=== PATIENT | female | born 1930 | race Caucasian/White ===

== ENCOUNTER 2016-11-08 16:33 | Inpatient (IN) | payer MEDICARE, OTHER ==
[~2016-11-08] VITALS: Ht 152.4 cm; Wt 45.9 kg
[~2016-11-08 16:33] MED LIST: APR50 PO; ASPI-664 PO; ATOR20TA38 PO; CARV6.25 PO; CLON-379 PO; CLON1PAT16 TD; CNC30T PO; DOXA1TAB38 PO; FOLI-49 PO; HYDR-3011 PO; MEGE40TA PO; NIFE60TA7 PO; PANT40TA3 PO; SENN-8 PO
--- NOTE | 2016-11-08 17:13 | RADRPT ---
PROCEDURE: Chest x-ray CLINICAL INDICATION: Abdominal pain TECHNIQUE: Chest single view COMPARISON: 01/19/2016 FINDINGS: As before there is right IJ dialysis catheter. Stable cardiomegaly and an sclerotic aortic calcific ation is seen. There is interval worsening CHF. Small left pleural effusion is identified. There is associated left lower lobe compressive atelectasis and volume loss. Right costophrenic angle sha rp. IMPRESSION: 1. Right IJ dialysis catheter remains in place. 2. Cardiomegaly with CHF which is slightly worse compared to prior examination. 3. Small left pleural effusion with left lower lung consolidation RPTAT: HH .Juvenal El MD, MD Date Time Electronically viewed and signed by .Juvenal El MD, on 11/08/2016 17:13 .W/
[2016-11-08 17:35] LABS: BASOPHILS % 0.2 % (0.0-2.0); EOSINOPHILS % 0.2 % (0.0-7.0); HEMATOCRIT 29.6 % (37.0-47.0); HEMOGLOBIN 9.5 g/dl (12.0-16.0); LYMPHOCYTES # 0.7 10^3/ul (0.8-2.9); LYMPHOCYTES % 18.8 % (15.0-51.0); MEAN CORPUSCULAR HEMOGLOBIN 31.7 pg (29.0-33.0); MEAN CORPUSCULAR VOLUME 99.2 fl (82.0-101.0); MEAN PLATELET VOLUME 9.1 fl (7.4-10.4); MONOCYTE # 0.3 10^3/ul (0.3-0.9); MONOCYTES % 8.2 % (0.0-11.0); NEUTROPHIL # 2.6 10^3/ul (1.6-7.5); NEUTROPHILS % 72.6 % (39.0-77.0); PLATELET COUNT 146 10^3/UL (140-440); RED BLOOD COUNT 2.98 10^6/ul (4.20-5.40); RED CELL DISTRIBUTION WIDTH 15.7 % (11.5-14.5); UNCORRECTED WBC 3.6 10^3/ul (4.8-10.8); WHITE BLOOD COUNT 3.6 10^3/ul (4.8-10.8)
[2016-11-08 17:37] LABS: CONDITION 1; LH ANALYZER COMMENTS 1
[2016-11-08 17:40] LABS: INR 1.13; PROTIME 14.5 Sec (12.2-14.2); PT RATIO 1.1
[2016-11-08 17:50] LABS: ALBUMIN 3.2 g/dl (3.3-4.9)
[2016-11-08 17:51] LABS: POTASSIUM 5.3 mmol/L (3.5-5.1)
[2016-11-08 17:53] LABS: ALBUMIN/GLOBULIN RATIO 0.78; CALCIUM 8.6 mg/dl (8.4-10.2); CREATININE 4.92 mg/dl (0.44-1.00); TOTAL PROTEIN 7.3 g/dl (6.1-8.1)
[2016-11-08] MEDS: VANCOMYCIN 1 GM (PMX) 250 ML IVPB SCH ×2 (17:59→19:08)
[2016-11-08] MEDS ORDERED: FUROSEMIDE 40 MG INJ IV ONE (18:00)
[2016-11-08] MEDS ORDERED: CEFEPIME 1GM/50 ML (PMX) 50 ML IVPB ONE (18:00)
[2016-11-08 18:03] LABS: TROPONIN-I 0.082 ng/ml (0.00-0.12)
[2016-11-08 18:21] LABS: ADD UMIC YES; URINE BILIRUBIN (Dip) NEGATIVE (NEGATIVE); URINE BLOOD (Dip) 3+ (NEGATIVE); URINE COLOR YELLOW (YELLOW); URINE GLUCOSE (Dip) NEGATIVE (NEGATIVE); URINE KETONES (Dip) NEGATIVE (NEGATIVE); URINE LEUKOCYTE ESTERASE (Dip) 3+ (NEGATIVE); URINE NITRITE (Dip) NEGATIVE (NEGATIVE); URINE TOTAL PROTEIN (Dip) 2+ (NEGATIVE); URINE UROBILINOGEN (Dip) 0.2 E.U./dL (0.1-1.0)
[2016-11-08 18:41] LABS: BACTERIA,URINE MANY
[2016-11-08] MEDS ORDERED: ASPI-664 PO (18:43)
[2016-11-08] MEDS ORDERED: HYDR-3672 PO (18:43)
--- NOTE | 2016-11-08 18:43 | ERA ---
ER Documentation Chief Complaint Date/Time DATE: 11/08/16 TIME: 18:31 Chief Complaint BROUGHT IN VIA EMS DUE TO SHORTNESS OF BREATH HPI 85-year-old woman brought in by EMS from longterm for increasing shortness of breath. She has a history of end-stage kidney disease and was dialyzed 2 days ago on Tuesday. She had an episode of hypoxia while at the longterm today. Family member was later at the bedside states her mental status has been diminished today, she has had no fevers, no obvious cough, no complaints of chest pain. She has had no vomiting or diarrhea. HPI was supplemented by reviewing past medical history, reviewing longterm records, speaking to EMS , family members, and nurses. ROS All systems reviewed and are negative except as per history of present illness. Medications Home Meds Reported Medications Nifedipine* (Nifedipine ER*) 60 Mg Tablet.sa, 60 MG PO DAILY, TAB.SA 10/24/15 Hydralazine Hcl* (Hydralazine Hcl*) 50 Mg Tab, 100 MG PO TID, #180 TAB 10/24/15 Doxazosin Mesylate* (Cardura*) 1 Mg Tablet, 1 MG PO QHS, #30 TAB 10/24/15 Clonidine Hcl Transdermal Patch* (Catapres-TTS 3*) 1 Patch.wk Patch.tdwk, 1 PATCH.WK TD Q7D, PATCH 10/24/15 Carvedilol* (Coreg*) 6.25 Mg Tablet, 6.25 MG PO BID, TAB 10/24/15 Atorvastatin Calcium* (Atorvastatin Calcium*) 20 Mg Tablet, 40 MG PO QHS, #30 TAB 10/24/15 Aspirin* (Aspirin* EC) 81 Mg Tablet.dr, 81 MG PO DAILY, TAB 10/24/15 Folic Acid* (Folic Acid*) 1 Mg Tablet, 1 MG PO DAILY, TAB 07/17/15 Pantoprazole* (Protonix*) 40 Mg Tablet.dr, 40 MG PO DAILY, TAB 07/17/15 Sennosides/Docusate Sodium* (Senna-S*) 1 Tab Tablet, 1 TAB PO DAILY Y for CONSTIPATION, TAB 07/17/15 Cinacalcet* (Sensipar*) 30 Mg Tab, 30 MG PO DAILY, TAB 11/14/14 Hydroxyzine Hcl* (Hydroxyzine Hcl*) 25 Mg Tablet, 25 MG PO DAILY, TAB 10/29/14 Megestrol Acetate* (Megace*) 40 Mg Tab, 40 MG PO BID, TAB 11/30/13 Clonidine Hcl* (Clonidine Hcl*) 0.1 Mg Tab, 0.1 MG PO DAILY Y for ELEVATED BLOOD PRESSURE, TAB 11/30/13 Allergies Allergies: Coded Allergies: No Known Allergy (Verified , 09/18/15) PMhx/Soc decompensated diastolic heart failure with an ejection fraction of 60%, end- stage kidney disease hemodialyzed on Tuesday, , Saturdays, hypertension , dyslipidemia, DNR status Anesthesia Reaction: No Hx Neurological Disorder: No Hx Respiratory Disorders: Yes (PNA) Hx Cardiac Disorders: Yes (HTN, CHF) Hx Psychiatric Problems: No Hx Alcohol Use: No Hx Substance Use: No Hx Tobacco Use: No Smoking Status: Unknown if ever smoked FmHx Family History: No diabetes Physical Exam Vitals Vital Signs Date Time Temp Pulse Resp B/P Pulse Ox O2 Delivery O2 Flow Rate FiO2 11/08/16 17:16 73 20 116/64 98 Nasal Cannula 4.0 11/08/16 16:58 Nasal Cannula 3 11/08/16 16:46 98.4 90 20 120/86 99 Physical Exam GENERAL: Elderly, chronically debilitated woman, appears encephalopathic, afebrile HEENT: Dry mucous membranes, pink conjunctiva, no cervical spine tenderness or step-off deformities, no goiter, no jaundice or icterus, extraocular movements intact without pain. No submandibular induration, and no pharyngeal erythema NEURO: Alert and oriented 1, moving all extremities, does not answer questions or follow commands, no facial asymmetry, pupils equal round reactive to light CARDIAC: Regular rate and rhythm, no murmurs rubs or gallops LUNGS: Clear bilaterally no wheezing crackles or stridor ABDOMEN: Soft nontender, no guarding, no rigidity, no rebound, no psoas sign no obturator sign. Normoactive bowel sounds SKIN: Warm and dry to touch, no abrasions, contusions, or hematomas, no lacerations, no ecchymosis, no target lesions, and without ulcers EXTREMITIES: No clubbing cyanosis or edema, calves are bilaterally symmetrical, no Homans sign, no popliteal cord sign. Distal pulses equal and bilateral PSYCH: Unable to assess Result Diagram: 11/08/16 1705 11/08/16 1705 Results 24 hrs Laboratory Tests Test 11/08/16 17:05 Alanine Aminotransferase (ALT/SGPT) 14IU/L Albumin 3.2g/dl Albumin/Globulin Ratio 0.78 Alkaline Phosphatase 91IU/L Anion Gap 19 Aspartate Amino Transf (AST/SGOT) 22IU/L Basophils # 0.010^3/ul Basophils % 0.2% Blood Morphology Comment Blood Urea Nitrogen 50mg/dl Calcium Level 8.6mg/dl Carbon Dioxide Level 26mmol/L Chloride Level 100mmol/L Creatinine 4.92mg/dl Direct Bilirubin 0.00mg/dl Eosinophils # 0.010^3/ul Eosinophils % 0.2% Globulin 4.10g/dl Glucose Level 83mg/dl Hematocrit 29.6% Hemoglobin 9.5g/dl INR International Normalized Ratio 1.13 Indirect Bilirubin 0.0mg/dl Lipase 218U/L Lymphocytes # 0.710^3/ul Lymphocytes % 18.8% Mean Corpuscular Hemoglobin 31.7pg Mean Corpuscular Hemoglobin Concent 32.0g/dl Mean Corpuscular Volume 99.2fl Mean Platelet Volume 9.1fl Monocytes # 0.310^3/ul Monocytes % 8.2% Neutrophils # 2.610^3/ul Neutrophils % 72.6% Nucleated Red Blood Cells # 0.010^3/ul Nucleated Red Blood Cells % 0.0/100WBC Platelet Count 14475^3/UL Potassium Level 5.3mmol/L Prothrombin Time 14.5Sec Prothrombin Time Ratio 1.1 Red Blood Count 2.9810^6/ul Red Cell Distribution Width 15.7% Sodium Level 140mmol/L Total Bilirubin 0.0mg/dl Total Protein 7.3g/dl Troponin I 0.082ng/ml White Blood Count 3.610^3/ul Current Medications Medications (Trade) Dose Ordered Sig/Lali Route PRN Reason Start Time Stop Time Status Last Admin Dose Admin Furosemide 60 mg 60 mg ONCE ONCE IV 11/08/16 18:00 11/08/16 18:01 DC 11/08/16 17:59 Cefepime HCl 50 ml @ 100 mls/hr ONCE ONCE IVPB 11/08/16 18:00 11/08/16 18:29 DC 11/08/16 17:59 Vancomycin HCl (Vancocin) 250 ml @ 125 mls/hr ONCE IVPB 11/08/16 18:00 11/08/16 19:59 Procedures/MDM IV line was established patient was placed on cardiac/vascular sonographer rhythm strip revealed a sinus rhythm at about 70 bpm with upright P and T waves. Patient was afebrile with a rectal temperature performed. Straight catheterization of the bladder was performed and there was 10 cc of urine output, it seems like she is still able to make some urine so Cochran catheter was placed. Blood and urine cultures have been ordered results are pending I will follow-up. One view chest x-ray performed, read by me reveals a hemodialysis catheter in the right chest, cardiomegaly, bilateral pulmonary vascular congestion and possible early infiltrate at the left lower lobe, no pneumothorax, no end of the diaphragm. EKG performed, read by me reveals a normal sinus rhythm at 73 bpm, normal axis with flattened P and T waves, no concerning ST elevation or depression noted. CBC reveals a leukocytosis at 3.6 and mild anemia with a hematocrit of 30, electrolytes revealed renal failure with a BUN/creatinine of 50/4.9, and hyperkalemia 5.3. Liver function tests are normal, troponin was negative. Urine analysis is pending. Patient is afebrile and at this time sepsis or pneumonia is unlikely although there may be an early evolving infiltrate especially given her recent hypoxia at the longterm so I treated her here with cefepime 1 g IV and vancomycin 1 g IV. Antibiotics were administered after blood culture was performed. Critical Care: Time: 38 minutes, this was time separate from other procedures. Treatments/Evaluations: Close monitoring and treatment of unstable vital signs, cardiorespiratory, and neurologic status, while maintaining tight balance of fluid, respiratory, and cardiac interventions. Patient will be admitted to telemetry setting for continued medical management and hemodialysis Departure Diagnosis: Primary Impression: ESRD (end stage renal disease) on dialysis Additional Impressions: Accelerated hypertension Pulmonary edema Qualified Code: J81.0 - Acute pulmonary edema Hyperkalemia Pneumonia Qualified Code: J18.9 - Pneumonia of left lower lobe due to infectious organism Encephalopathy Condition: SAWYER Nelson MD Nov 08, 2016 18:42
[2016-11-08] MEDS ORDERED: CLON1PAT3 TD (18:44)
[2016-11-08] MEDS ORDERED: CARV12.598 PO (18:47)
[2016-11-08] MEDS ORDERED: DOCU-159 PO (18:47)
[2016-11-08] MEDS ORDERED: FOLI-49 PO (18:48)
[2016-11-08] MEDS ORDERED: HYDR-3011 PO (18:49)
[2016-11-08] MEDS ORDERED: ATOR40TA68 PO (18:50)
[2016-11-08] MEDS ORDERED: NIFE60TA7 PO (18:53)
[2016-11-08] MEDS ORDERED: PANT40TA4 PO (18:54)
[2016-11-08] MEDS ORDERED: NEPH PO (18:55)
[2016-11-08] MEDS ORDERED: SEVE800T7 PO (18:56)
[2016-11-08] MEDS ORDERED: SENN-53 PO (18:56)
[2016-11-08] MEDS ORDERED: BENZ1LOZ4 PO (19:01)
[2016-11-08] MEDS ORDERED: NA POLYST SULFON 15 GM/60 ML BTL PO ONE (21:30)
[2016-11-08] MEDS ORDERED: hydrOXYzine HCL 25 MG TAB PO PRN (22:00)
[2016-11-08] MEDS ORDERED: CLONIDINE 0.3 MG/24 HR PATCH TRANSDERM SCH (22:00)
[2016-11-08] MEDS ORDERED: NIFEdipine (XL) 60 MG TAB PO SCH (22:00)
[2016-11-08] MEDS: DOCUSATE SODIUM 100 MG CAP PO SCH (23:20)
[2016-11-09] VITALS (9 sets, daily range): BP systolic 112–139; BP diastolic 59–74; PULSE 55–78; RESP 16–17; TEMP 98.6; Ht 152.4 cm; Wt 45.9 kg
[2016-11-09 06:49] LABS: POTASSIUM 5.1 mmol/L (3.5-5.1)
[2016-11-09 06:52] LABS: CREATININE 5.41 mg/dl (0.44-1.00)
[2016-11-09 06:53] LABS: CALCIUM 8.3 mg/dl (8.4-10.2); MAGNESIUM 1.9 mg/dl (1.7-2.5); PHOSPHORUS 7.3 mg/dl (2.5-4.9)
[2016-11-09] MEDS: PANTOPRAZOLE (EC) 40 MG TAB PO SCH (07:26)
[2016-11-09] MEDS ORDERED: CALCIUM ACETATE 667 MG CAP PO SCH (08:00)
[2016-11-09] MEDS: DOCUSATE SODIUM 100 MG CAP PO SCH ×2 (10:01→21:00)
[2016-11-09] MEDS: SEVELAMER CARBONATE 0.8 GM PKT PO SCH ×3 (10:01→18:58)
[2016-11-09] MEDS: FOLIC ACID 1 MG TAB PO SCH (10:02)
[2016-11-09] MEDS: SENNA TAB PO SCH (10:03)
[2016-11-09] MEDS: MULTIVIT/CA CARB/B CMPLX/FA TAB PO SCH (10:03)
[2016-11-09] MEDS: ASPIRIN (EC) 81 MG TAB PO SCH (10:03)
[2016-11-09] MEDS: NIFEdipine (XL) 60 MG TAB PO SCH ×2 (10:04→21:00)
--- NOTE | 2016-11-09 16:55 | QN ---
Documentation Comment [id number] consult GLENNY RACHEL MD Nov 09, 2016 16:55
[2016-11-09] MEDS ORDERED: LEVOFLOXACIN 500MG/D5W (PMX) 100 ML IVPB SCH ×2 (17:00→19:00)
[2016-11-09] MEDS ORDERED: VANCOMYCIN IV PER PHARMACY XX SCH (17:00)
[2016-11-09] MEDS ORDERED: HEPARIN 1000 UNITS/ML 10 ML INJ CATHETER ONE (19:00)
[2016-11-09] MEDS: ALBUMIN HUMAN 25% 100 ML IV SCH ×2 (19:00→20:00)
--- NOTE | 2016-11-09 19:07 | CONS ---
DATE OF ADMISSION: 11/09/2016 DATE OF CONSULTATION: TYPE OF CONSULTATION: Nephrology. HISTORY OF PRESENT ILLNESS: Thank you for kindly asking me to see this patient in nephrology consul loraine. Ms. Hay is non-Mohawk speaking 85-year-old female with history of ESRD, history of hyp ertension, CHF, pneumonia, sepsis, AV fistula placement in the past, which has been clotted. The mariluz carlisle has a history of heart failure, also history of hip fracture in the past and repair who presen lynnette with short of breath. As per record from the ER, patient was seen by Dr. Lj Castro and mariluz carlisle's last dialysis was Tuesday without any problem. The patient's blood pressure in the ER 116/ 64. The patient's temperature 98.4. The patient's WBC 3.6, hematocrit 29.6. Potassium 5.3, BUN 50 , creatinine 4.92. The patient received Lasix, cefepime, and vancomycin in the ER and transferred t o the floor. The patient's blood cultures are also positive. The patient has gram-positive cocci i n pairs and chains in blood culture. Chest x-ray shows the patient has small left pleural effusion, left lower lung consolidation, cardiomegaly with CHF, slightly worse. PAST MEDICAL HISTORY: ESRD, hypertension, anemia, CHF, pneumonia, history of hip fracture, history of AV fistula placement, multiple catheter sepsis, history of malnutrition, history of multiple hosp italizations as well as patient has history of dyslipidemia. ALLERGY HISTORY: NEGATIVE PER CURRENT RECORD. SOCIAL HISTORY: Cannot be obtained. FAMILY HISTORY: Cannot be obtained. MEDICATION HISTORY: USP medications include patient is on: 1. Aspirin. 2. Lipitor. 3. Coreg. 4. Clonidine. 5. Docusate sodium. 6. Folic acid. 7. Hydralazine. 8. Hydroxyzine. 9. Multiple vitamin. 10. Nifedipine. 11. Protonix. 12. Senna. 13. Renvela. REVIEW OF SYSTEMS: Cannot be obtained because of language barrier. PHYSICAL EXAMINATION: GENERAL: The patient is awake, alert, mildly short of breath. VITAL SIGNS: Pulse 64, blood pressure 130/61. HEENT: Head is atraumatic, normocephalic. Pupils equal, reactive. NECK: Supple. LUNGS: Rhonchi and some wheezes noted. Crepitation in both bases. CARDIOVASCULAR: S1, S2 normal. Systolic murmur, soft, noted. ABDOMEN: Soft, nontender. Bowel sounds positive. No palpable mass. EXTREMITIES: No cyanosis, clubbing, or edema. CENTRAL NERVOUS SYSTEM: The patient is awake, alert, moving both upper and lower extremities. LABORATORY DATA: Repeat potassium 5.1, BUN 58, creatinine 5.41. Phosphorus 7.3. The patient's blo od cultures growing gram-positive cocci in pairs. IMPRESSION: 1. The patient has pulmonary edema. 2. Sepsis. 3. Possible community-acquired pneumonia. 4. Hyperkalemia. 5. The patient has pancytopenia. 6. Endstage renal disease. 7. Hypertension. 8. Dyslipidemia. 9. History of hip fracture. 10. History of right chest PermCath placement. PLAN: To continue renal diet, binders. Hemodialysis will be ordered as well as antibiotics. Thank you, Dr. Love, for kindly asking me to see this patient in nephrology consultation. Dictated By: GLENNY RACHEL MD BS/NTS Conf#: [id number] DID#: [id number] CC: KEON LOVE MD; GENET TRIMBLE MD;*EndCC*
--- NOTE | 2016-11-09 20:28 | HP ---
DATE OF ADMISSION: 11/09/2016 OUTPATIENT CRAPS DEALER: Reed Browne MD CHIEF COMPLAINT ON ADMISSION: Shortness of breath. HISTORY OF PRESENT ILLNESS: This is an 85-year-old female with history of hypertension, end-stage r enal disease on hemodialysis, hyperlipidemia, chronic anemia, congestive heart failure and diastolic dysfunction, who was brought into the emergency department from a local group home facility wi th reported shortness of breath. The patient's last dialysis was this past Tuesday; therefore she missed dialysis apparently on Tuesday. She was found to be hypoxic at the group home facility a nd according to family members, her mental status was diminished. All of the history is obtained fr om previous admissions along with ER physician report. There is no reported fevers, no complaint of chest pain, nausea or vomiting. She did not have any reported productive cough. However, on exam she did sound a little congested coughing. She has been afebrile since admission. In the emergency department, she had a chest x-ray that showed signs of pulmonary vascular congestion and possibly l eft lower lobe consolidation. She did receive a dose of cefepime and vancomycin. Her laboratory da ta is pointing more possibly to a viral URI versus bronchopneumonia. I have ordered influenza swab to be done. She has been seen by Dr. Browne with planned dialysis today. Upon arrival yesterday, he r potassium was up to 5.3. This was treated in the emergency department. She is currently hemodyna mically stable, awake, alert, seems to have her mental status at baseline. Awaiting hemodialysis to day. PAST MEDICAL HISTORY: 1. Includes congestive heart failure, diastolic dysfunction. 2. End-stage renal disease on hemodialysis. 3. Hypertension. 4. Hyperlipidemia. 5. Chronic anemia. ALLERGIES: NO KNOWN ALLERGIES. PAST SURGICAL HISTORY: 1. The patient is status post right hip surgery remotely. Of note, her right hip surgery was done i 2013, a right hemiarthroplasty. 2. Status post Perm-A-Cath placement and left upper extremity AV fistula remotely. SOCIAL HISTORY: No smoking or alcohol reported. The patient is currently a resident at the group home [facility]. REVIEW OF SYSTEMS: Unable to obtain from patient. OUTPATIENT MEDICATIONS: 1. Atorvastatin 40 mg p.o. at bedtime. 2. Carvedilol 12.5 mg p.o. b.i.d. 3. Clonidine patch 0.3 for 24 hour q. 7 days. 4. Hydralazine 100 mg p.o. t.i.d. 5. Nifedipine ER 60 mg p.o. b.i.d. 6. Aspirin 81 mg p.o. daily. 7. Hydroxyzine 25 mg p.o. q. 6 hours p.r.n. itching. 8. Renvela 0.8 grams p.o. with meals. 9. Sore throat lozenges daily p.r.n. 10. Colace 100 mg p.o. b.i.d. 11. Protonix 40 mg p.o. daily. 12. Senna 1 tab p.o. daily. 13. Folic acid 1 mg p.o. daily. 14. Sofy-Cooper 1 tab p.o. daily. PHYSICAL EXAMINATION: VITAL SIGNS: Temperature 98.6, heart rate of 62, sinus rhythm, respiratory rate 18, blood pressure 135/61 the patient is satting 95% on 2 liters nasal cannula. GENERAL: She is alert and oriented. It is unclear if she is oriented by 4. She is primarily Russi an speaking. She is not in acute distress currently. HEENT: Pupils are equally round and reactive to light. Extraocular muscles are intact. Anicteric sclerae. NECK: No JVD, no thyromegaly noted. HEART: Regular rate and rhythm. LUNGS: Clear to auscultation mostly except at the bases where decreased breath sounds are more sign ificant on the left side. ABDOMEN: Soft, nontender, nondistended. Bowel sounds are present. EXTREMITIES: No edema, clubbing or cyanosis. NEUROLOGIC: Again, she seems back to baseline. It is unclear how much walking or weightbearing she does at baseline. LABORATORY DATA: White blood cell count is 3.6, hemoglobin 9.5, hematocrit 29.6, MCV around 99 to 2 00, platelet count of 146. Chemistry with a sodium of 142, potassium 5.1, chloride 101, bicarbonate 25, BUN 58, creatinine 5.41, glucose of 86, calcium of 8.3, phosphorus 7.3, magnesium of 1.9. Live r function testing within normal. Troponin 0.082, albumin of 3.0. Lipase of 218. INR 1.1, PT 14.5 . Urinalysis shows 3+ leukocyte, many bacteria, and 2+ protein. RADIOLOGICAL DATA: Show a right IJ dialysis catheter in place, some cardiomegaly with CHF is slight ly worse compared to prior examination. She does have and pulmonary vascular congestion. Th ere is a small left pleural effusion with left lower lobe consolidation reported. ASSESSMENT AND PLAN: This is an 85-year-old female with: 1. Episode of mild respiratory distress concerning for congestive heart failure exacerbation versus bronchopneumonia versus upper respiratory infection. If it is an infectious source, it is likely to be viral, but since the patient is a dialysis patient and she lives in a group home facility, she has been empirically covered at this point. She did receive vancomycin and also cefepime. I wi ll place her on Levaquin and cefepime. Also, one of her blood cultures 1/2 came back pretty quickly with gram-positive cocci. This is suspicious for possibly a contamination, but will monitor on the final results and repeat the blood cultures tomorrow. She is currently stable on 2 liters nasal ca nnula. 2. End-stage renal disease on hemodialysis. The patient has missed 1 hemodialysis. I have contact ed Dr. Browne, who is familiar with the patient and saw the patient this afternoon, is planning for d ialysis today. 3. Severe hypertension. She is on multiple agents to be continued for now and monitor closely. 4. Hyperlipidemia. Continue home medications. 5. Congestive heart failure, diastolic dysfunction. The patient's volume status will be managed th rough hemodialysis. She already had 1 negative cardiac enzyme, I will recheck one tomorrow morning and will also have echocardiogram to make sure that she is still just a diastolic dysfunction and no t systolic dysfunction. 6. Chronic anemia, hemoglobin is stable so far. Continue to monitor. 7. Positive urinalysis. Will await urine culture and the patient should have her Cochran catheter di scontinued as she is anuric. 8. Prophylaxis: Pepcid for GI prophylaxis and heparin subq for DVT prophylaxis. DISPOSITION: The patient to be dialyzed today, follow up on her cultures and hopefully she will be able to go back to group home facility in the next 48 hours. Dictated By: KEON VALLE/RAMOS Conf#: [id number] DID#: [id number]
[2016-11-09] MEDS: ATORVASTATIN 40 MG TAB PO SCH (21:00)
[2016-11-09] MEDS ORDERED: ALBUMIN HUMAN 25% 100 ML IV ONE (22:00)
[2016-11-09] MEDS ORDERED: VANCOMYCIN 500MG/NS (PMX) 100 ML IVPB SCH (22:00)
[2016-11-10] VITALS (18 sets, daily range): BP systolic 111–165; BP diastolic 50–77; PULSE 55–67; RESP 16–20
[2016-11-10] MEDS: HEPARIN 5,000 UNIT/0.5 ML SYG SC SCH ×3 (01:40→20:58)
[2016-11-10 06:05] LABS: BASOPHILS % 0.1 % (0.0-2.0); EOSINOPHILS % 1.1 % (0.0-7.0); HEMATOCRIT 27.2 % (37.0-47.0); HEMOGLOBIN 9.1 g/dl (12.0-16.0); LYMPHOCYTES # 0.4 10^3/ul (0.8-2.9); LYMPHOCYTES % 12.6 % (15.0-51.0); MEAN CORPUSCULAR HEMOGLOBIN 32.8 pg (29.0-33.0); MEAN CORPUSCULAR HGB CONC 33.3 g/dl (32.0-37.0); MEAN CORPUSCULAR VOLUME 98.5 fl (82.0-101.0); MEAN PLATELET VOLUME 9.1 fl (7.4-10.4); MONOCYTE # 0.2 10^3/ul (0.3-0.9); MONOCYTES % 5.7 % (0.0-11.0); NEUTROPHIL # 2.7 10^3/ul (1.6-7.5); NEUTROPHILS % 80.5 % (39.0-77.0); PLATELET COUNT 118 10^3/UL (140-440); RED BLOOD COUNT 2.77 10^6/ul (4.20-5.40); RED CELL DISTRIBUTION WIDTH 14.8 % (11.5-14.5); UNCORRECTED WBC 3.4 10^3/ul (4.8-10.8); WHITE BLOOD COUNT 3.4 10^3/ul (4.8-10.8)
[2016-11-10 06:08] LABS: POTASSIUM 3.7 mmol/L (3.5-5.1)
[2016-11-10 06:10] LABS: CK-MB 1.02 ng/ml (0.0-2.4)
[2016-11-10 06:11] LABS: CREATININE 3.55 mg/dl (0.44-1.00)
[2016-11-10 06:12] LABS: CALCIUM 8.5 mg/dl (8.4-10.2)
[2016-11-10 06:13] LABS: TROPONIN-I 0.072 ng/ml (0.00-0.12)
[2016-11-10 06:16] LABS: CONDITION 1; LH ANALYZER COMMENTS 1
[2016-11-10 06:27] LABS: CREATINE KINASE < 20 IU/L (23-200)
[2016-11-10 07:49] LABS: MAGNESIUM 1.7 mg/dl (1.7-2.5); PHOSPHORUS 4.2 mg/dl (2.5-4.9)
[2016-11-10] MEDS: SEVELAMER CARBONATE 0.8 GM PKT PO SCH ×3 (07:55→17:55)
[2016-11-10] MEDS ORDERED: VANCOMYCIN 750 MG in SOD CHLORIDE 0.9% 150 ML IVPB ONE (08:00)
[2016-11-10] MEDS: PANTOPRAZOLE (EC) 40 MG TAB PO SCH (08:48)
[2016-11-10] MEDS: DOCUSATE SODIUM 100 MG CAP PO SCH ×2 (08:49→20:57)
[2016-11-10] MEDS: FOLIC ACID 1 MG TAB PO SCH (08:50)
[2016-11-10] MEDS: ASPIRIN (EC) 81 MG TAB PO SCH (08:50)
[2016-11-10] MEDS: SENNA TAB PO SCH (08:51)
[2016-11-10] MEDS: MULTIVIT/CA CARB/B CMPLX/FA TAB PO SCH (08:51)
[2016-11-10] MEDS: NIFEdipine (XL) 60 MG TAB PO SCH ×2 (08:51→20:56)
--- NOTE | 2016-11-10 12:44 | PN ---
Date/Time of Note Date/Time of Note DATE: 11/10/16 TIME: 12:15 Assessment/Plan VTE Prophylaxis VTE Prophylaxis Intervention: heparin Lines/Catheters IV [facility] Saline Lock Urinary Cath still in place: No Assessment/Plan Assessment/Plan 85-year-old female with: 1. Episode of mild respiratory distress concerning for congestive heart failure exacerbation versus bronchopneumonia versus upper respiratory infection. On Levaquin and Vanco for ? HCAP vs likely to be viral Blood cultures 2/2 with Enterococcus, repeat blood cx today She is currently on RA and stable. 2. End-stage renal disease on hemodialysis. Back on HD Dr Browne following 3. Severe hypertension. Continuing outpatient meds. 4. Hyperlipidemia. Continue statins. 5. Congestive heart failure, diastolic dysfunction. Volume status managed through hemodialysis. CE negative Echo prn. 6. Chronic anemia, hemoglobin is stable so far. Continue to monitor. 7. Positive urinalysis. Urine cx NGTD Prophylaxis: Pepcid for GI prophylaxis and heparin subq for DVT prophylaxis. DISPOSITION: HD and repeat blood cx today hopefully d/c back to shelter facility in the next 48 hours, will need placement to contracted facility with her new insurance . Subjective 24 Hr Interval Summary Free Text/Dictation Patient doing OK and on RA HD yesterday Blood cx 2/2 enterococcus Repeat blood cx pending today Exam/Review of Systems Vital Signs Vitals Vital Signs Date Time Temp Pulse Resp B/P Pulse Ox O2 Delivery O2 Flow Rate FiO2 11/10/16 11:26 99.2 66 20 152/71 98 11/10/16 09:29 Nasal Cannula 4.0 Intake and Output 11/09/16 11/09/16 11/10/16 15:00 23:00 07:00 Intake Total 100 ml 600 ml Output Total 6600 ml Balance 100 ml -6000 ml Exam Constitutional: alert, frail, oriented, other (primarly andorran speaking ) Respiratory: clear to auscultation, normal air movement Cardiovascular: nl pulses, regular rate and rhythm Gastrointestinal: non-tender, soft Musculoskeletal: nl extremities to inspection Extremities: normal pulses, other (no edema, clubbing or cyanosis ) Neurological: ACTION INSTALLER II-XII intact, nl mental status, nl speech (andorran speaking ), other (some weakness, PT to eval ) Results Result Diagram: 11/10/16 0510 11/10/16 0510 Results 24 hrs Laboratory Tests Test 11/10/16 05:10 Anion Gap 20 H Basophils # 0.0 Basophils % 0.1 Blood Morphology Comment Blood Urea Nitrogen 37 #H Calcium Level 8.5 Carbon Dioxide Level 28 Chloride Level 96 L Creatine Kinase < 20 L Creatine Kinase Index Creatinine 3.55 #H Creatinine Kinase MB (Mass) 1.02 Eosinophils # 0.0 Eosinophils % 1.1 Glucose Level 100 Hematocrit 27.2 L Hemoglobin 9.1 L Lymphocytes # 0.4 L Lymphocytes % 12.6 L Magnesium Level 1.7 Mean Corpuscular Hemoglobin 32.8 Mean Corpuscular Hemoglobin Concent 33.3 Mean Corpuscular Volume 98.5 Mean Platelet Volume 9.1 Monocytes # 0.2 L Monocytes % 5.7 Neutrophils # 2.7 Neutrophils % 80.5 H Nucleated Red Blood Cells # 0.0 Nucleated Red Blood Cells % 0.0 Phosphorus Level 4.2 # Platelet Count 118 L Potassium Level 3.7 Random Vancomycin Level 10.4 Red Blood Count 2.77 L Red Cell Distribution Width 14.8 H Sodium Level 140 Troponin I 0.072 White Blood Count 3.4 L Medications Medications Current Medications Aspirin (Halfprin) 81 mg DAILY PO Last administered on 11/10/16 08:50; Admin Dose 81 MG; Start 11/09/16 at 09:00 Atorvastatin Calcium (Lipitor) 40 mg QHS PO ; Start 11/09/16 at 21:00 Clonidine HCl (Catapres-Tts 3 Patch) 0.3 patch Q7D TRANSDERM Last administered on 11/08/16 23:20; Admin Dose 0.3 PATCH; Start 11/08/16 at 22:00 Docusate Sodium (Colace) 100 mg BID PO Last administered on 11/10/16 08:49; Admin Dose 100 MG; Start 11/08/16 at 22:00 Folic Acid (Folic Acid) 1 mg DAILY PO Last administered on 11/10/16 08:50; Admin Dose 1 MG; Start 11/09/16 at 09:00 Hydroxyzine HCl (Atarax) 25 mg Q6 PRN PO ITCHING; Start 11/08/16 at 22:00 Multivit/Ca Carb/ B Cmplx/FA/Prenat (Sofy-Cooper) 1 tab DAILY PO Last administered on 11/10/16 08:51; Admin Dose 1 TAB; Start 11/09/16 at 09:00 Senna (Senokot) 1 tab DAILY PO Last administered on 11/10/16 08:51; Admin Dose 1 TAB; Start 11/09/16 at 09:00 Carvedilol (Coreg) 12.5 mg BID PO Last administered on 11/10/16 08:50; Admin Dose 12.5 MG; Start 11/09/16 at 09:00 Nifedipine (Procardia Xl) 60 mg BID PO Last administered on 11/10/16 08:51; Admin Dose 60 MG; Start 11/09/16 at 09:00 Heparin Sodium (Porcine) 5000 unit 5,000 unit BID SC Last administered on 09:02; Admin Dose 5,000 UNIT; Start 11/09/16 at 21:00 Levofloxacin/ Dextrose (Levaquin 250 Mg/ D5W 50 ml (Pmx)) 50 ml @ 50 mls/hr Q48H IVPB ; Start 11/11/16 at 19:00 KEON LOVE Nov 10, 2016 12:26
--- NOTE | 2016-11-10 12:48 | CONS ---
Date/Time of Note Date/Time of Note DATE: 11/10/16 TIME: 12:47 Assessment/Plan Assessment/Plan Chief Complaint/Hosp Course IMPRESSION: 1. The patient has pulmonary edema.better 2. Sepsis. 3. Possible community-acquired pneumonia. 4. Hyperkalemia. better plan hd am 5. The patient has pancytopenia. 6. Endstage renal disease. 7. Hypertension. 8. Dyslipidemia. 9. History of hip fracture. 10. History of right chest PermCath placement. Problems: Consultation Date/Type/Reason Admit Date/Time Nov 09, 2016 at 16:20 Initial Consult Date Type of Consultation: RENAL 24 HR Interval Summary Constitutional: no complaints, other (no distress) Exam/Review of Systems Vital Signs Vitals Vital Signs Date Time Temp Pulse Resp B/P Pulse Ox O2 Delivery O2 Flow Rate FiO2 11/10/16 12:26 65 11/10/16 11:26 99.2 20 152/71 98 11/10/16 09:29 Nasal Cannula 4.0 Intake and Output 11/09/16 11/09/16 11/10/16 15:00 23:00 07:00 Intake Total 100 ml 600 ml Output Total 6600 ml Balance 100 ml -6000 ml Exam Respiratory: clear to auscultation Cardiovascular: regular rate and rhythm Gastrointestinal: bowel sounds, soft Extremities: edema (tr) Results Result Diagram: 11/10/16 0510 11/10/16 0510 Results 24 hrs Laboratory Tests Test 11/10/16 05:10 Anion Gap 20 H Basophils # 0.0 Basophils % 0.1 Blood Morphology Comment Blood Urea Nitrogen 37 #H Calcium Level 8.5 Carbon Dioxide Level 28 Chloride Level 96 L Creatine Kinase < 20 L Creatine Kinase Index Creatinine 3.55 #H Creatinine Kinase MB (Mass) 1.02 Eosinophils # 0.0 Eosinophils % 1.1 Glucose Level 100 Hematocrit 27.2 L Hemoglobin 9.1 L Lymphocytes # 0.4 L Lymphocytes % 12.6 L Magnesium Level 1.7 Mean Corpuscular Hemoglobin 32.8 Mean Corpuscular Hemoglobin Concent 33.3 Mean Corpuscular Volume 98.5 Mean Platelet Volume 9.1 Monocytes # 0.2 L Monocytes % 5.7 Neutrophils # 2.7 Neutrophils % 80.5 H Nucleated Red Blood Cells # 0.0 Nucleated Red Blood Cells % 0.0 Phosphorus Level 4.2 # Platelet Count 118 L Potassium Level 3.7 Random Vancomycin Level 10.4 Red Blood Count 2.77 L Red Cell Distribution Width 14.8 H Sodium Level 140 Troponin I 0.072 White Blood Count 3.4 L Medications Medications Current Medications Aspirin (Halfprin) 81 mg DAILY PO Last administered on 11/10/16 08:50; Admin Dose 81 MG; Start 11/09/16 at 09:00 Atorvastatin Calcium (Lipitor) 40 mg QHS PO ; Start 11/09/16 at 21:00 Clonidine HCl (Catapres-Tts 3 Patch) 0.3 patch Q7D TRANSDERM Last administered on 11/08/16 23:20; Admin Dose 0.3 PATCH; Start 11/08/16 at 22:00 Docusate Sodium (Colace) 100 mg BID PO Last administered on 11/10/16 08:49; Admin Dose 100 MG; Start 11/08/16 at 22:00 Folic Acid (Folic Acid) 1 mg DAILY PO Last administered on 11/10/16 08:50; Admin Dose 1 MG; Start 11/09/16 at 09:00 Hydroxyzine HCl (Atarax) 25 mg Q6 PRN PO ITCHING; Start 11/08/16 at 22:00 Multivit/Ca Carb/ B Cmplx/FA/Prenat (Sofy-Cooper) 1 tab DAILY PO Last administered on 11/10/16 08:51; Admin Dose 1 TAB; Start 11/09/16 at 09:00 Senna (Senokot) 1 tab DAILY PO Last administered on 11/10/16 08:51; Admin Dose 1 TAB; Start 11/09/16 at 09:00 Carvedilol (Coreg) 12.5 mg BID PO Last administered on 11/10/16 08:50; Admin Dose 12.5 MG; Start 11/09/16 at 09:00 Nifedipine (Procardia Xl) 60 mg BID PO Last administered on 11/10/16 08:51; Admin Dose 60 MG; Start 11/09/16 at 09:00 Heparin Sodium (Porcine) 5000 unit 5,000 unit BID SC Last administered on 09:02; Admin Dose 5,000 UNIT; Start 11/09/16 at 21:00 Levofloxacin/ Dextrose (Levaquin 250 Mg/ D5W 50 ml (Pmx)) 50 ml @ 50 mls/hr Q48H IVPB ; Start 11/11/16 at 19:00 GLENNY RACHEL MD Nov 10, 2016 12:48
[2016-11-10] MEDS: ATORVASTATIN 40 MG TAB PO SCH (20:57)
[2016-11-11] VITALS (26 sets, daily range): BP systolic 110–183; BP diastolic 57–86; PULSE 61–148; RESP 16–20
[2016-11-11 06:55] LABS: BASOPHILS % 0.7 % (0.0-2.0); EOSINOPHILS % 1.2 % (0.0-7.0); HEMATOCRIT 29.2 % (37.0-47.0); HEMOGLOBIN 9.4 g/dl (12.0-16.0); LYMPHOCYTES # 0.7 10^3/ul (0.8-2.9); LYMPHOCYTES % 25.2 % (15.0-51.0); MEAN CORPUSCULAR HEMOGLOBIN 31.9 pg (29.0-33.0); MEAN CORPUSCULAR HGB CONC 32.2 g/dl (32.0-37.0); MEAN PLATELET VOLUME 9.5 fl (7.4-10.4); MONOCYTE # 0.2 10^3/ul (0.3-0.9); MONOCYTES % 8.8 % (0.0-11.0); NEUTROPHIL # 1.8 10^3/ul (1.6-7.5); NEUTROPHILS % 64.1 % (39.0-77.0); PLATELET COUNT 115 10^3/UL (140-440); RED BLOOD COUNT 2.95 10^6/ul (4.20-5.40); RED CELL DISTRIBUTION WIDTH 15.6 % (11.5-14.5); UNCORRECTED WBC 2.8 10^3/ul (4.8-10.8); WHITE BLOOD COUNT 2.8 10^3/ul (4.8-10.8)
[2016-11-11 07:08] LABS: CONDITION 1; LH ANALYZER COMMENTS 1
[2016-11-11 07:26] LABS: MAGNESIUM 1.8 mg/dl (1.7-2.5); PHOSPHORUS 5.3 mg/dl (2.5-4.9)
[2016-11-11 07:32] LABS: POTASSIUM 4.3 mmol/L (3.5-5.1)
[2016-11-11 07:35] LABS: CREATININE 4.73 mg/dl (0.44-1.00)
[2016-11-11 07:36] LABS: CALCIUM 8.9 mg/dl (8.4-10.2)
[2016-11-11] MEDS: SEVELAMER CARBONATE 0.8 GM PKT PO SCH ×3 (07:55→17:40)
[2016-11-11] MEDS: PANTOPRAZOLE (EC) 40 MG TAB PO SCH (08:24)
[2016-11-11] MEDS: DOCUSATE SODIUM 100 MG CAP PO SCH ×2 (08:25→21:20)
[2016-11-11] MEDS: FOLIC ACID 1 MG TAB PO SCH (08:26)
[2016-11-11] MEDS: ASPIRIN (EC) 81 MG TAB PO SCH (08:26)
[2016-11-11] MEDS: SENNA TAB PO SCH (08:27)
[2016-11-11] MEDS: MULTIVIT/CA CARB/B CMPLX/FA TAB PO SCH (08:27)
[2016-11-11] MEDS: NIFEdipine (XL) 60 MG TAB PO SCH ×2 (08:27→21:20)
[2016-11-11] MEDS: HEPARIN 5,000 UNIT/0.5 ML SYG SC SCH ×2 (08:29→21:21)
[2016-11-11] MEDS ORDERED: HEPARIN 1000 UNITS/ML 10 ML INJ CATHETER SCH (09:30)
[2016-11-11] MEDS ORDERED: ALBUMIN HUMAN 25% 100 ML IV PRN (09:30)
--- NOTE | 2016-11-11 11:20 | PN ---
Date/Time of Note Date/Time of Note DATE: 11/11/16 TIME: 11:05 Assessment/Plan VTE Prophylaxis VTE Prophylaxis Intervention: heparin Lines/Catheters IV C[facility]ter Type [facility]from [facility] Saline Lock Urinary Cath still in place: No Assessment/Plan Assessment/Plan 85-year-old female with: 1. Episode of mild respiratory distress concerning for congestive heart failure exacerbation versus bronchopneumonia versus upper respiratory infection. Continue Levaquin, will change to po, already on Vanco. She is currently on RA and stable. 2. Enterococcus faecalis bacteriemia, on Vanco that can be given with HD Repeat blood cx pending D/c plan back to SNF tomorrow. 3. End-stage renal disease on hemodialysis. Back on HD, T/T/S Dr Browne following HD today and d/c plan tomorrow hopefully 4. Severe hypertension. Continuing outpatient meds. 5. Hyperlipidemia. Continue statins. 6. Congestive heart failure, diastolic dysfunction. Volume status managed through hemodialysis. CE negative. 7. Chronic anemia, hemoglobin is stable so far. Continue to monitor. Prophylaxis: Pepcid for GI prophylaxis and heparin subq for DVT prophylaxis. DISPOSITION: HD and repeat blood cx pending hopefully d/c back to [facility] facility in the next 24 hrs. Subjective 24 Hr Interval Summary Free Text/Dictation Patient remains stable On HD Repeat blood cx pending Exam/Review of Systems Vital Signs Vitals Vital Signs Date Time Temp Pulse Resp B/P Pulse Ox O2 Delivery O2 Flow Rate FiO2 11/11/16 09:28 Nasal Cannula 3.0 11/11/16 08:11 65 11/11/16 07:36 98.0 20 142/70 91 Intake and Output 11/10/16 11/10/16 11/11/16 15:00 23:00 07:00 Intake Total 150 ml 720 ml 300 ml Balance 150 ml 720 ml 300 ml Exam Constitutional: alert, frail, oriented Respiratory: clear to auscultation, normal air movement, other (soem scaterred exp wheezes ) Cardiovascular: nl pulses, regular rate and rhythm Gastrointestinal: non-tender, soft Musculoskeletal: nl extremities to inspection Extremities: normal pulses, other (no edema, clubbing or cyanosis ) Neurological: FINANCIAL REPORT SERVICE SALES AGENT II-XII intact, nl mental status, nl speech (russina speaking ) Results Result Diagram: 11/11/1645 1/26/17 0545 Results 24 hrs Laboratory Tests Test 11/11/16 05:45 Anion Gap 19 H Basophils # 0.0 Basophils % 0.7 Blood Morphology Comment Blood Urea Nitrogen 56 H Calcium Level 8.9 Carbon Dioxide Level 27 Chloride Level 100 Creatinine 4.73 #H Eosinophils # 0.0 Eosinophils % 1.2 Glucose Level 83 Hematocrit 29.2 L Hemoglobin 9.4 L Lymphocytes # 0.7 L Lymphocytes % 25.2 Magnesium Level 1.8 Mean Corpuscular Hemoglobin 31.9 Mean Corpuscular Hemoglobin Concent 32.2 Mean Corpuscular Volume 99.0 Mean Platelet Volume 9.5 Monocytes # 0.2 L Monocytes % 8.8 Neutrophils # 1.8 Neutrophils % 64.1 Nucleated Red Blood Cells # 0.0 Nucleated Red Blood Cells % 0.0 Phosphorus Level 5.3 H Platelet Count 115 L Potassium Level 4.3 Red Blood Count 2.95 L Red Cell Distribution Width 15.6 H Sodium Level 142 White Blood Count 2.8 L Medications Medications Current Medications Aspirin (Halfprin) 81 mg DAILY PO Last administered on 11/11/16 08:26; Admin Dose 81 MG; Start 11/09/16 at 09:00 Atorvastatin Calcium (Lipitor) 40 mg QHS PO Last administered on 11/10/16 20: 57; Admin Dose 40 MG; Start 11/09/16 at 21:00 Clonidine HCl (Catapres-Tts 3 Patch) 0.3 patch Q7D TRANSDERM Last administered on 11/08/16 23:20; Admin Dose 0.3 PATCH; Start 11/08/16 at 22:00 Docusate Sodium (Colace) 100 mg BID PO Last administered on 11/11/16 08:25; Admin Dose 100 MG; Start 11/08/16 at 22:00 Folic Acid (Folic Acid) 1 mg DAILY PO Last administered on 11/11/16 08:26; Admin Dose 1 MG; Start 11/09/16 at 09:00 Hydroxyzine HCl (Atarax) 25 mg Q6 PRN PO ITCHING; Start 11/08/16 at 22:00 Multivit/Ca Carb/ B Cmplx/FA/Prenat (Sofy-Cooper) 1 tab DAILY PO Last administered on 11/11/16 08:27; Admin Dose 1 TAB; Start 11/09/16 at 09:00 Senna (Senokot) 1 tab DAILY PO Last administered on 11/11/16 08:27; Admin Dose 1 TAB; Start 11/09/16 at 09:00 Carvedilol (Coreg) 12.5 mg BID PO Last administered on 11/11/16 08:26; Admin Dose 12.5 MG; Start 11/09/16 at 09:00 Nifedipine (Procardia Xl) 60 mg BID PO Last administered on 11/11/16 08:27; Admin Dose 60 MG; Start 11/09/16 at 09:00 Heparin Sodium (Porcine) 5000 unit 5,000 unit BID SC Last administered on 08:29; Admin Dose 5,000 UNIT; Start 11/09/16 at 21:00 Levofloxacin/ Dextrose (Levaquin 250 Mg/ D5W 50 ml (Pmx)) 50 ml @ 50 mls/hr Q48H IVPB ; Start 11/11/16 at 19:00 KEON LOVE Nov 11, 2016 11:17
[2016-11-11] MEDS: LEVOFLOXACIN 250 MG TAB PO SCH ×2 (11:30→17:40)
[2016-11-11] MEDS ORDERED: ALBUTEROL 0.083% (NEB) 2.5 MG/3 ML AMP HHN PRN (11:30)
--- NOTE | 2016-11-11 14:16 | CONS ---
Date/Time of Note Date/Time of Note DATE: 11/11/16 TIME: 14:14 Assessment/Plan Assessment/Plan Chief Complaint/Hosp Course IMPRESSION: 1. The patient has pulmonary edema.better 2. Sepsis. 3. Possible community-acquired pneumonia. 4. Hyperkalemia. better plan hd am 5. The patient has pancytopenia. 6. Endstage renal disease. 7. Hypertension. 8. Dyslipidemia. 9. History of hip fracture. 10. History of right chest PermCath placement. 11 sepsis plan hd antibiotic Problems: Consultation Date/Type/Reason Admit Date/Time Nov 09, 2016 at 16:20 Type of Consultation: RENAL 24 HR Interval Summary Constitutional: no complaints Exam/Review of Systems Vital Signs Vitals Vital Signs Date Time Temp Pulse Resp B/P Pulse Ox O2 Delivery O2 Flow Rate FiO2 11/11/16 14:10 65 11/11/16 11:25 18 11/11/16 11:05 98.3 152/74 93 11/11/16 09:28 Nasal Cannula 3.0 Intake and Output 11/10/16 11/10/16 11/11/16 15:00 23:00 07:00 Intake Total 150 ml 720 ml 300 ml Balance 150 ml 720 ml 300 ml Exam Respiratory: clear to auscultation Cardiovascular: regular rate and rhythm Gastrointestinal: soft Genitourinary - Female: nl adnexae Musculoskeletal: nl extremities to inspection Results Result Diagram: 11/11/16 0545 11/11/16 0545 Results 24 hrs Laboratory Tests Test 11/11/16 05:45 Anion Gap 19 H Basophils # 0.0 Basophils % 0.7 Blood Morphology Comment Blood Urea Nitrogen 56 H Calcium Level 8.9 Carbon Dioxide Level 27 Chloride Level 100 Creatinine 4.73 #H Eosinophils # 0.0 Eosinophils % 1.2 Glucose Level 83 Hematocrit 29.2 L Hemoglobin 9.4 L Lymphocytes # 0.7 L Lymphocytes % 25.2 Magnesium Level 1.8 Mean Corpuscular Hemoglobin 31.9 Mean Corpuscular Hemoglobin Concent 32.2 Mean Corpuscular Volume 99.0 Mean Platelet Volume 9.5 Monocytes # 0.2 L Monocytes % 8.8 Neutrophils # 1.8 Neutrophils % 64.1 Nucleated Red Blood Cells # 0.0 Nucleated Red Blood Cells % 0.0 Phosphorus Level 5.3 H Platelet Count 115 L Potassium Level 4.3 Red Blood Count 2.95 L Red Cell Distribution Width 15.6 H Sodium Level 142 White Blood Count 2.8 L Medications Medications Current Medications Aspirin (Halfprin) 81 mg DAILY PO Last administered on 11/11/16 08:26; Admin Dose 81 MG; Start 11/09/16 at 09:00 Atorvastatin Calcium (Lipitor) 40 mg QHS PO Last administered on 11/10/16 20: 57; Admin Dose 40 MG; Start 11/09/16 at 21:00 Clonidine HCl (Catapres-Tts 3 Patch) 0.3 patch Q7D TRANSDERM Last administered on 11/08/16 23:20; Admin Dose 0.3 PATCH; Start 11/08/16 at 22:00 Docusate Sodium (Colace) 100 mg BID PO Last administered on 11/11/16 08:25; Admin Dose 100 MG; Start 11/08/16 at 22:00 Folic Acid (Folic Acid) 1 mg DAILY PO Last administered on 11/11/16 08:26; Admin Dose 1 MG; Start 11/09/16 at 09:00 Hydroxyzine HCl (Atarax) 25 mg Q6 PRN PO ITCHING; Start 11/08/16 at 22:00 Multivit/Ca Carb/ B Cmplx/FA/Prenat (Sofy-Cooper) 1 tab DAILY PO Last administered on 11/11/16 08:27; Admin Dose 1 TAB; Start 11/09/16 at 09:00 Senna (Senokot) 1 tab DAILY PO Last administered on 11/11/16 08:27; Admin Dose 1 TAB; Start 11/09/16 at 09:00 Carvedilol (Coreg) 12.5 mg BID PO Last administered on 11/11/16 08:26; Admin Dose 12.5 MG; Start 11/09/16 at 09:00 Nifedipine (Procardia Xl) 60 mg BID PO Last administered on 11/11/16 08:27; Admin Dose 60 MG; Start 11/09/16 at 09:00 Heparin Sodium (Porcine) (Heparin (5000 Units/0.5 ml)) 5,000 unit BID SC Last administered on 11/11/16 08:29; Admin Dose 5,000 UNIT; Start 11/09/16 at 21:00 Levofloxacin (Levaquin) 250 mg Q48H PO ; Start 11/11/16 at 11:30 GLENNY RACHEL MD Nov 11, 2016 14:16
[2016-11-11] MEDS: ALBUTEROL 0.083% (NEB) 2.5 MG/3 ML AMP HHN SCH (16:09)
[2016-11-11] MEDS ORDERED: LEVOFLOXACIN 250MG/D5W (PMX) 50 ML IVPB SCH (19:00)
[2016-11-11] MEDS: ATORVASTATIN 40 MG TAB PO SCH (21:20)
[2016-11-12] VITALS (12 sets, daily range): BP systolic 130–212; BP diastolic 63–98; PULSE 62–75; RESP 18
[2016-11-12 07:01] LABS: MAGNESIUM 1.8 mg/dl (1.7-2.5); PHOSPHORUS 3.6 mg/dl (2.5-4.9)
[2016-11-12 07:02] LABS: EOSINOPHILS # 0.1 10^3/ul (0.0-0.5); EOSINOPHILS % 2.7 % (0.0-7.0); HEMATOCRIT 27.9 % (37.0-47.0); HEMOGLOBIN 9.4 g/dl (12.0-16.0); LYMPHOCYTES # 0.8 10^3/ul (0.8-2.9); LYMPHOCYTES % 29.6 % (15.0-51.0); MEAN CORPUSCULAR HEMOGLOBIN 32.9 pg (29.0-33.0); MEAN CORPUSCULAR HGB CONC 33.6 g/dl (32.0-37.0); MEAN PLATELET VOLUME 9.5 fl (7.4-10.4); MONOCYTE # 0.2 10^3/ul (0.3-0.9); NEUTROPHIL # 1.7 10^3/ul (1.6-7.5); NEUTROPHILS % 59.7 % (39.0-77.0); PLATELET COUNT 121 10^3/UL (140-440); RED BLOOD COUNT 2.84 10^6/ul (4.20-5.40); RED CELL DISTRIBUTION WIDTH 14.6 % (11.5-14.5); UNCORRECTED WBC 2.9 10^3/ul (4.8-10.8); WHITE BLOOD COUNT 2.9 10^3/ul (4.8-10.8)
[2016-11-12 07:11] LABS: POTASSIUM 4.9 mmol/L (3.5-5.1)
[2016-11-12 07:14] LABS: CREATININE 3.16 mg/dl (0.44-1.00)
[2016-11-12 07:15] LABS: CALCIUM 9.2 mg/dl (8.4-10.2)
[2016-11-12 07:20] LABS: CONDITION 1; LH ANALYZER COMMENTS 1
[2016-11-12] MEDS: PANTOPRAZOLE (EC) 40 MG TAB PO SCH (07:25)
[2016-11-12] MEDS: SEVELAMER CARBONATE 0.8 GM PKT PO SCH ×3 (07:55→17:55)
[2016-11-12] MEDS: MULTIVIT/CA CARB/B CMPLX/FA TAB PO SCH (09:00)
[2016-11-12] MEDS: FOLIC ACID 1 MG TAB PO SCH (09:00)
[2016-11-12] MEDS: DOCUSATE SODIUM 100 MG CAP PO SCH ×2 (09:00→21:57)
[2016-11-12] MEDS: SENNA TAB PO SCH (09:00)
[2016-11-12] MEDS: HEPARIN 5,000 UNIT/0.5 ML SYG SC SCH (09:00)
[2016-11-12] MEDS: ASPIRIN (EC) 81 MG TAB PO SCH (09:00)
[2016-11-12] MEDS: NIFEdipine (XL) 60 MG TAB PO SCH ×2 (10:52→21:57)
[2016-11-12] MEDS ORDERED: hydrALAzine 20 MG INJ IV ONE (11:30)
[2016-11-12] MEDS ORDERED: NIFEdipine (XL) 60 MG TAB PO ONE (11:30)
--- NOTE | 2016-11-12 11:58 | PN ---
Date/Time of Note Date/Time of Note DATE: 11/12/16 TIME: 11:31 Assessment/Plan VTE Prophylaxis VTE Prophylaxis Intervention: heparin Lines/Catheters IV [facility]ter Type (from [facility]): Saline Lock Urinary Cath still in place: No Assessment/Plan Assessment/Plan 85-year-old female with: 1. Episode of mild respiratory distress concerning for congestive heart failure exacerbation versus bronchopneumonia versus upper respiratory infection. Resolved so far and patient refusing O2 with good sats on RA and stable Continue Levaquin po On Vanco for bacteremia. 2. Enterococcus faecalis bacteriemia, on Vanco that can be given with HD Repeat blood cx NGTD D/c plan back to SNF today with Vanco to be given at HD. Discussed with Dr Browne 3. End-stage renal disease on hemodialysis. Back on HD, T/T/S Dr Browne following HD today and d/c plan today and to resume outpatient HD tomorrow 4. Severe hypertension. Continuing outpatient meds including Coreg, Clonidine patch, nifedipine XL. Patient hypertensive today, resuming Hydralazine with first dose to be given IV now She has been spitting out most meds today. 5. Hyperlipidemia. Continue statins. 6. Congestive heart failure, diastolic dysfunction. Volume status managed through hemodialysis. CE negative. 7. Chronic anemia, hemoglobin is stable so far. Continue to monitor. Prophylaxis: Pepcid for GI prophylaxis and heparin subq for DVT prophylaxis. DISPOSITION: Repeat blood cx NGTD, BP control for planned d/c to SNF today with resumption of outpatient HD tomorrow per outpatient schedule. Subjective 24 Hr Interval Summary Free Text/Dictation Patient doing well actually, on RA and comfortable Back to baseline hypertensive now and repeat blood cx negative Labs stable D/c plan back to SNF today Exam/Review of Systems Vital Signs Vitals Vital Signs Date Time Temp Pulse Resp B/P Pulse Ox O2 Delivery O2 Flow Rate FiO2 11/12/16 08:11 62 11/12/16 08:01 98.0 18 178/95 98 11/12/16 06:29 3.0 11/11/16 20:30 Nasal Cannula Intake and Output 11/11/16 11/11/16 11/12/16 15:00 23:00 07:00 Intake Total 500 ml 520 ml 60 ml Output Total 3000 ml Balance -2500 ml 520 ml 60 ml Exam Constitutional: other (sleeping and calm currently) Respiratory: clear to auscultation, normal air movement, other (on RA) Cardiovascular: nl pulses, regular rate and rhythm Gastrointestinal: non-tender, soft Musculoskeletal: nl extremities to inspection, other (no edema, clubbing or cyanosis ) Extremities: normal pulses Neurological: HEAD NURSE II-XII intact, nl mental status, nl speech (russina speaking ) Results Result Diagram: 11/12/16 0500 11/12/16 0500 Results 24 hrs Laboratory Tests Test 11/12/16 05:00 Anion Gap 17 H Basophils # 0.0 Basophils % 0.0 Blood Morphology Comment Blood Urea Nitrogen 37 #H Calcium Level 9.2 Carbon Dioxide Level 29 Chloride Level 102 Creatinine 3.16 #H Eosinophils # 0.1 Eosinophils % 2.7 Glucose Level 75 Hematocrit 27.9 L Hemoglobin 9.4 L Lymphocytes # 0.8 Lymphocytes % 29.6 Magnesium Level 1.8 Mean Corpuscular Hemoglobin 32.9 Mean Corpuscular Hemoglobin Concent 33.6 Mean Corpuscular Volume 98.0 Mean Platelet Volume 9.5 Monocytes # 0.2 L Monocytes % 8.0 Neutrophils # 1.7 Neutrophils % 59.7 Nucleated Red Blood Cells # 0.0 Nucleated Red Blood Cells % 0.0 Phosphorus Level 3.6 Platelet Count 121 L Potassium Level 4.9 Red Blood Count 2.84 L Red Cell Distribution Width 14.6 H Sodium Level 143 White Blood Count 2.9 L Medications Medications Current Medications Aspirin (Halfprin) 81 mg DAILY PO Last administered on 11/11/16 08:26; Admin Dose 81 MG; Start 11/09/16 at 09:00 Atorvastatin Calcium (Lipitor) 40 mg QHS PO Last administered on 11/11/16 21: 20; Admin Dose 40 MG; Start 11/09/16 at 21:00 Clonidine HCl (Catapres-Tts 3 Patch) 0.3 patch Q7D TRANSDERM Last administered on 11/08/16 23:20; Admin Dose 0.3 PATCH; Start 11/08/16 at 22:00 Docusate Sodium (Colace) 100 mg BID PO Last administered on 11/11/16 21:20; Admin Dose 100 MG; Start 11/08/16 at 22:00 Folic Acid (Folic Acid) 1 mg DAILY PO Last administered on 11/11/16 08:26; Admin Dose 1 MG; Start 11/09/16 at 09:00 Hydroxyzine HCl (Atarax) 25 mg Q6 PRN PO ITCHING Last administered on 10:57; Admin Dose 25 MG; Start 11/08/16 at 22:00 Multivit/Ca Carb/ B Cmplx/FA/Prenat (Sofy-Cooper) 1 tab DAILY PO Last administered on 11/11/16 08:27; Admin Dose 1 TAB; Start 11/09/16 at 09:00 Senna (Senokot) 1 tab DAILY PO Last administered on 11/11/16 08:27; Admin Dose 1 TAB; Start 11/09/16 at 09:00 Carvedilol (Coreg) 12.5 mg BID PO Last administered on 11/12/16 10:52; Admin Dose 12.5 MG; Start 11/09/16 at 09:00 Nifedipine (Procardia Xl) 60 mg BID PO Last administered on 11/12/16 10:52; Admin Dose 60 MG; Start 11/09/16 at 09:00 Heparin Sodium (Porcine) (Heparin (5000 Units/0.5 ml)) 5,000 unit BID SC Last administered on 11/11/16 21:21; Admin Dose 5,000 UNIT; Start 11/09/16 at 21:00 Levofloxacin (Levaquin) 250 mg Q48H PO Last administered on 11/11/16 17:40; Admin Dose 250 MG; Start 11/11/16 at 11:30 Hydralazine HCl (Apresoline) 20 mg ONCE ONCE IV ; Start 11/12/16 at 11:30; Stop 11/12/16 at 11:31 KEON LOVE Nov 12, 2016 11:51
[2016-11-12] MEDS ORDERED: hydrALAzine 20 MG INJ IV PRN (12:00)
[2016-11-12] MEDS: ALBUTEROL 0.083% (NEB) 2.5 MG/3 ML AMP HHN SCH (12:23)
--- NOTE | 2016-11-12 13:32 | PDOCDIS ---
Discharge Instructions CONDITION Patient Condition: Stable HOME CARE INSTRUCTIONS: Special Diet: RENAL DIET ACTIVITY: Activity Restrictions: Slowly Increase Activity FOLLOW UP/APPOINTMENTS Appointments Follow up with PCP within 1 week Resume outpatient HD tomorrow KEON LOVE Nov 12, 2016 13:32
--- NOTE | 2016-11-12 16:21 | CONS ---
Date/Time of Note Date/Time of Note DATE: 11/12/16 TIME: 16:19 Assessment/Plan Assessment/Plan Chief Complaint/Hosp Course IMPRESSION: 1. The patient has pulmonary edema.better 2. Sepsis. 3. Possible community-acquired pneumonia. 4. s/p Hyperkalemia. better 5. The patient has pancytopenia. 6. Endstage renal disease. 7. Hypertension. bp meds 8. Dyslipidemia. 9. History of hip fracture. 10. History of right chest PermCath placement. 11 sepsis plan hd antibiotic Problems: Consultation Date/Type/Reason Admit Date/Time Nov 09, 2016 at 16:20 Type of Consultation: RENAL 24 HR Interval Summary Constitutional: no complaints Exam/Review of Systems Vital Signs Vitals Vital Signs Date Time Temp Pulse Resp B/P Pulse Ox O2 Delivery O2 Flow Rate FiO2 11/12/16 16:04 68 11/12/16 12:38 98.0 18 212/98 96 11/12/16 08:15 21 11/12/16 06:29 3.0 11/11/16 20:30 Nasal Cannula Intake and Output 11/11/16 11/11/16 11/12/16 15:00 23:00 07:00 Intake Total 500 ml 520 ml 60 ml Output Total 3000 ml Balance -2500 ml 520 ml 60 ml Exam Neck: supple Respiratory: clear to auscultation Gastrointestinal: soft Extremities: edema (tr+) Results Result Diagram: 11/12/16 0500 11/12/16 0500 Results 24 hrs Laboratory Tests Test 11/12/16 05:00 Anion Gap 17 H Basophils # 0.0 Basophils % 0.0 Blood Morphology Comment Blood Urea Nitrogen 37 #H Calcium Level 9.2 Carbon Dioxide Level 29 Chloride Level 102 Creatinine 3.16 #H Eosinophils # 0.1 Eosinophils % 2.7 Glucose Level 75 Hematocrit 27.9 L Hemoglobin 9.4 L Lymphocytes # 0.8 Lymphocytes % 29.6 Magnesium Level 1.8 Mean Corpuscular Hemoglobin 32.9 Mean Corpuscular Hemoglobin Concent 33.6 Mean Corpuscular Volume 98.0 Mean Platelet Volume 9.5 Monocytes # 0.2 L Monocytes % 8.0 Neutrophils # 1.7 Neutrophils % 59.7 Nucleated Red Blood Cells # 0.0 Nucleated Red Blood Cells % 0.0 Phosphorus Level 3.6 Platelet Count 121 L Potassium Level 4.9 Red Blood Count 2.84 L Red Cell Distribution Width 14.6 H Sodium Level 143 White Blood Count 2.9 L Medications Medications Current Medications Aspirin (Halfprin) 81 mg DAILY PO Last administered on 11/11/16 08:26; Admin Dose 81 MG; Start 11/09/16 at 09:00 Atorvastatin Calcium (Lipitor) 40 mg QHS PO Last administered on 11/11/16 21: 20; Admin Dose 40 MG; Start 11/09/16 at 21:00 Clonidine HCl (Catapres-Tts 3 Patch) 0.3 patch Q7D TRANSDERM Last administered on 11/08/16 23:20; Admin Dose 0.3 PATCH; Start 11/08/16 at 22:00 Docusate Sodium (Colace) 100 mg BID PO Last administered on 11/11/16 21:20; Admin Dose 100 MG; Start 11/08/16 at 22:00 Folic Acid (Folic Acid) 1 mg DAILY PO Last administered on 11/11/16 08:26; Admin Dose 1 MG; Start 11/09/16 at 09:00 Hydroxyzine HCl (Atarax) 25 mg Q6 PRN PO ITCHING Last administered on 10:57; Admin Dose 25 MG; Start 11/08/16 at 22:00 Multivit/Ca Carb/ B Cmplx/FA/Prenat (Sofy-Cooper) 1 tab DAILY PO Last administered on 11/11/16 08:27; Admin Dose 1 TAB; Start 11/09/16 at 09:00 Senna (Senokot) 1 tab DAILY PO Last administered on 11/11/16 08:27; Admin Dose 1 TAB; Start 11/09/16 at 09:00 Carvedilol (Coreg) 12.5 mg BID PO Last administered on 11/12/16 10:52; Admin Dose 12.5 MG; Start 11/09/16 at 09:00 Nifedipine (Procardia Xl) 60 mg BID PO Last administered on 11/12/16 10:52; Admin Dose 60 MG; Start 11/09/16 at 09:00 Heparin Sodium (Porcine) (Heparin (5000 Units/0.5 ml)) 5,000 unit BID SC Last administered on 11/11/16 21:21; Admin Dose 5,000 UNIT; Start 11/09/16 at 21:00 Levofloxacin (Levaquin) 250 mg Q48H PO Last administered on 11/11/16 17:40; Admin Dose 250 MG; Start 11/11/16 at 11:30 Hydralazine HCl (Apresoline) 10 mg Q4H PRN IV SBP GREATER THAN 160; Start 11/12 at 12:00 Hydralazine HCl (Apresoline) 100 mg Q8 PO Last administered on 11/12/16 14:11 ; Admin Dose 100 MG; Start 11/12/16 at 14:00 Miscellaneous Information (*Rx Drug Level Order Reminder*) 1 ONCE ONCE XX ; Start 11/13/16 at 05:00; Stop 11/13/16 at 05:01 GLENNY RACHEL MD Nov 12, 2016 16:21
[2016-11-12] MEDS: ATORVASTATIN 40 MG TAB PO SCH (21:58)
[2016-11-13] VITALS (9 sets, daily range): BP systolic 126–155; BP diastolic 63–90; PULSE 62–69; RESP 16–20
[2016-11-13] MEDS: HEPARIN 5,000 UNIT/0.5 ML SYG SC SCH ×2 (03:12→09:20)
[2016-11-13] MEDS: ALBUTEROL 0.083% (NEB) 2.5 MG/3 ML AMP HHN SCH ×2 (08:00→08:48)
[2016-11-13] MEDS: SEVELAMER CARBONATE 0.8 GM PKT PO SCH ×2 (09:09→11:50)
[2016-11-13] MEDS: NIFEdipine (XL) 60 MG TAB PO SCH (09:10)
[2016-11-13] MEDS: DOCUSATE SODIUM 100 MG CAP PO SCH (09:10)
[2016-11-13] MEDS: ASPIRIN (EC) 81 MG TAB PO SCH (09:10)
[2016-11-13] MEDS: SENNA TAB PO SCH (09:11)
[2016-11-13] MEDS: FOLIC ACID 1 MG TAB PO SCH (09:12)
[2016-11-13] MEDS: MULTIVIT/CA CARB/B CMPLX/FA TAB PO SCH (09:16)
[2016-11-13] MEDS: PANTOPRAZOLE (EC) 40 MG TAB PO SCH (09:31)
--- NOTE | 2016-11-13 09:33 | CONS ---
Date/Time of Note Date/Time of Note DATE: 11/13/16 TIME: 09:32 Assessment/Plan Assessment/Plan Chief Complaint/Hosp Course IMPRESSION: 1. The patient has pulmonary edema.better 2. Sepsis. 3. Possible community-acquired pneumonia. 4. s/p Hyperkalemia. better 5. The patient has pancytopenia. 6. Endstage renal disease. 7. Hypertension. bp meds 8. Dyslipidemia. 9. History of hip fracture. 10. History of right chest PermCath placement. 11 sepsis plan hd antibiotic snf soon Problems: Consultation Date/Type/Reason Admit Date/Time Nov 09, 2016 at 16:20 Type of Consultation: RENAL 24 HR Interval Summary Constitutional: no complaints Exam/Review of Systems Vital Signs Vitals Vital Signs Date Time Temp Pulse Resp B/P Pulse Ox O2 Delivery O2 Flow Rate FiO2 11/13/16 08:35 67 11/13/16 07:13 98.4 18 155/90 97 11/13/16 07:00 21 11/12/16 20:06 Nasal Cannula 3.0 Intake and Output 11/12/16 11/12/16 11/13/16 15:00 23:00 07:00 Intake Total 700 ml 200 ml Balance 700 ml 200 ml Exam Respiratory: clear to auscultation Cardiovascular: regular rate and rhythm Gastrointestinal: soft Musculoskeletal: nl extremities to inspection Extremities: normal pulses Results Result Diagram: 11/12/16 0500 11/12/16 0500 Results 24 hrs Laboratory Tests Test 11/13/16 05:50 Random Vancomycin Level 14.9 Medications Medications Current Medications Aspirin (Halfprin) 81 mg DAILY PO Last administered on 11/13/16 09:10; Admin Dose 81 MG; Start 11/09/16 at 09:00 Atorvastatin Calcium (Lipitor) 40 mg QHS PO Last administered on 11/12/16 21: 58; Admin Dose 40 MG; Start 11/09/16 at 21:00 Clonidine HCl (Catapres-Tts 3 Patch) 0.3 patch Q7D TRANSDERM Last administered on 11/08/16 23:20; Admin Dose 0.3 PATCH; Start 11/08/16 at 22:00 Docusate Sodium (Colace) 100 mg BID PO Last administered on 11/13/16 09:10; Admin Dose 100 MG; Start 11/08/16 at 22:00 Folic Acid (Folic Acid) 1 mg DAILY PO Last administered on 11/13/16 09:12; Admin Dose 1 MG; Start 11/09/16 at 09:00 Hydroxyzine HCl (Atarax) 25 mg Q6 PRN PO ITCHING Last administered on 10:57; Admin Dose 25 MG; Start 11/08/16 at 22:00 Multivit/Ca Carb/ B Cmplx/FA/Prenat (Sofy-Cooper) 1 tab DAILY PO Last administered on 11/13/16 09:16; Admin Dose 1 TAB; Start 11/09/16 at 09:00 Senna (Senokot) 1 tab DAILY PO Last administered on 11/13/16 09:11; Admin Dose 1 TAB; Start 11/09/16 at 09:00 Carvedilol (Coreg) 12.5 mg BID PO Last administered on 11/13/16 09:11; Admin Dose 12.5 MG; Start 11/09/16 at 09:00 Nifedipine (Procardia Xl) 60 mg BID PO Last administered on 11/13/16 09:10; Admin Dose 60 MG; Start 11/09/16 at 09:00 Heparin Sodium (Porcine) (Heparin (5000 Units/0.5 ml)) 5,000 unit BID SC Last administered on 11/13/16 09:20; Admin Dose 5,000 UNIT; Start 11/09/16 at 21:00 Levofloxacin (Levaquin) 250 mg Q48H PO Last administered on 11/11/16 17:40; Admin Dose 250 MG; Start 11/11/16 at 11:30 Hydralazine HCl (Apresoline) 10 mg Q4H PRN IV SBP GREATER THAN 160; Start 11/12 at 12:00 Hydralazine HCl 100 mg 100 mg Q8 PO Last administered on 11/13/16 06:09; Admin Dose 100 MG; Start 11/12/16 at 14:00 Vancomycin HCl/ Sodium Chloride (Vancocin/NS) 150 ml @ 75 mls/hr Q96H IVPB ; Start 11/13/16 at 12:00 GLENNY RACHEL MD Nov 13, 2016 09:33
[2016-11-13] MEDS ORDERED: VANCOMYCIN 750 MG in SOD CHLORIDE 0.9% 150 ML IVPB SCH (12:00)
[2016-11-13] MEDS: LEVOFLOXACIN 250 MG TAB PO SCH (12:16)
--- NOTE | 2016-11-16 07:13 | DS ---
DATE OF ADMISSION: 11/09/2016 DATE OF DISCHARGE: 11/13/2016 PRIMARY CARE PHYSICIAN: Dr. Reed Browne. PRIMARY INTEGRATED SPECIALIST: Dr. Reed Browne CHIEF COMPLAINT ON ADMISSION: Shortness of breath. BRIEF HISTORY OF PRESENT ILLNESS: This is an 85-year-old female with history of hypertension, end-s tage renal disease on hemodialysis, hyperlipidemia, chronic anemia, congestive heart failure, diasto lic dysfunction, brought into the emergency department from a local detention facility with re ported shortness of breath. The patient did miss her dialysis at that time and there was a possibil ity of A pneumonia. She was admitted to a telemetry bed. HOSPITAL COURSE: The patient was admitted to telemetry. She was dialyzed on hospital day #[address] Browne. She had blood cultures drawn and 2 out of 2 came back with enterococcus. She was started o n vancomycin and her repeat blood cultures have remained negative. Because of the suspicion for pne umonia, the patient was also left on Levaquin. Her respiratory status did improve after at least 2 rounds of dialysis. She was on room air. The patient is primarily [place] speaking only and was re fusing her medications on and off, including her blood pressure medication that led to episode of hy pertensive urgency requiring for her to have her outpatient medication increased a little bit and al so some IV hydralazine. The patient's blood pressure became stable on 11/13/2016. Therefore, she w as officially discharged at that time. Her discharge order was placed on 11/12/2016 but because of her blood pressure, she was held 24 hours. She was discharged on 11/05/2016 to dialysis, then to a detention facility. DISPOSITION: Discharge back to detention facility. DISCHARGE CONDITION: Stable. DISCHARGE DIET: Renal diet. DISCHARGE ACTIVITY: Resume detention facility activity. FOLLOWUP: The patient needs to follow up with outpatient dialysis on the day of discharge. Follow up with Dr. Browne as an outpatient and follow up with primary care physician within 1 week. DISCHARGE DIAGNOSES: 1. Episode of mild respiratory distress, resolved. 2. Congestive heart failure, diastolic dysfunction, chronic, with acute exacerbation. 3. Enterococcus faecalis bacteremia. 4. End-stage renal disease on hemodialysis. 5. Severe hypertension. 6. Hyperlipidemia. 7. Chronic anemia. 8. Bronchopneumonia. DISCHARGE MEDICATIONS 1. Aspirin 81 mg p.o. daily. 2. Atorvastatin 40 mg p.o. at bedtime. 3. Sore throat lozenges daily p.r.n. 4. Carvedilol 12.5 mg p.o. b.i.d. 5. Clonidine patch 0.3 mg q.24h q. weekly. 6. Colace 100 mg p.o. b.i.d. 7. Folic acid 1 mg p.o. daily. 8. Hydralazine 100 mg p.o. t.i.d. 9. Hydroxyzine 25 mg p.o. q.6h. p.r.n. itching. 10. Sofy-Cooper. 11. Nifedipine ER 60 mg p.o. b.i.d. 12. Protonix 40 mg p.o. q.a.m. 13. Senna-Lax 1 tab p.o. daily. 14. Renvela 800 mg p.o. with meals. 15. Levaquin 250 mg p.o. q.48h. for 7 more days. 16. Vancomycin with dialysis for 7 more days. Dictated By: KEON VALLE/RAMOS Conf#: [id number] DID#: [id number]
== END 2016-11-13 14:14 | DRG 193 ==
LOC: E/R 16:33 → TEL 11-09 16:20
PROVIDERS: ADMIT Internal Medicine; ATTEND Internal Medicine
PROC: 5A1D60Z (ICD-10-PCS; principal; 2016-11-09)
DX: J18.0 Bronchopneumonia, unspecified organism (principal); G93.40 Encephalopathy, unspecified; I50.33 Acute on chronic diastolic (congestive) heart failure; D61.818 Other pancytopenia; N18.6 End stage renal disease; E87.5 Hyperkalemia; I13.2 Hypertensive heart and chronic kidney disease with heart failure and with stage 5 chronic kidney disease, or end stage renal disease; Z99.2 Dependence on renal dialysis; E78.5 Hyperlipidemia, unspecified; Z87.81 Personal history of (healed) traumatic fracture; Z96.641 Presence of right artificial hip joint; R82.79 Other abnormal findings on microbiological examination of urine; B95.2 Enterococcus as the cause of diseases classified elsewhere
CPT/HCPCS: 36415; 71010; 80048; 80053; 80069; 80202; 81001; 81003; 82550; 82553; 83690; 83735; 84100; 84484; 85025; 85610; 87040; 87086; 87400; 90935; 93005; 94640; 94664; 96374; 96375; 97110; 97161; J0360; J0692; J1644; J1940; J1956; J3370; P9047

== ENCOUNTER 2017-03-06 23:12 | Emergency (ER) | payer MEDICARE, OTHER ==
[~2017-03-06] VITALS: Ht 152.4 cm; Wt 45.0 kg
[~2017-03-06 23:12] MED LIST changes: -APR50 PO; -ATOR20TA38 PO; +ATOR40TA68 PO; +BENZ1LOZ4 PO; +CARV12.598 PO; -CARV6.25 PO; -CLON-379 PO; -CLON1PAT16 TD; +CLON1PAT3 TD; -CNC30T PO; +DOCU-159 PO; -DOXA1TAB38 PO; +HYDR-3672 PO; -MEGE40TA PO; +NEPH PO; -PANT40TA3 PO; +PANT40TA4 PO; +SENN-53 PO; -SENN-8 PO; +SEVE800T7 PO
[2017-03-06 23:27] VITALS: Ht 152.4 cm; Wt 45.0 kg
[2017-03-06] MEDS ORDERED: ONDANSETRON 4 MG INJ IV STA (23:30)
[2017-03-06] MEDS ORDERED: morphine 4 MG/ML VIAL IV STA (23:30)
--- NOTE | 2017-03-07 00:12 | RADRPT ---
PROCEDURE: XR Tibia and Fibula. CLINICAL INDICATION: Pain. TECHNIQUE: AP and lateral views of the right tibia and fibula. COMPARISON: None available. FINDINGS: The bones are osteopenic. There is a fracture of the distal tibial diaphysis. The joint spaces are unremarkable. There are arterial calcifications. IMPRESSION: 1. Distal tibial diaphyseal fracture. 2. Osteopenia. RPTAT: HTAR .Benedict Jensen MD, MD Date Time Electronically viewed and signed by .Benedict Jensen MD, on 03/07/2017 00:12 .R/
--- NOTE | 2017-03-07 00:41 | RADRPT ---
PROCEDURE: CT Brain without contrast. CLINICAL INDICATION: Trauma. Pain. TECHNIQUE: Serial axial computed tomographic images of the brain was performed on a multidetector CT scanner from the skull base through the vertex without contrast. CTDlvol = 45 mGy and DLP = 810 m Gy-cm. One of the following 3 dose reduction techniques were used: Automated exposure control; adju stment of the mA and/or kV according to patient size; or use of iterative reconstruction technique. COMPARISON: 09/06/2050 FINDINGS: There is no fracture. There is severe generalized central and peripheral atrophy.. There is no mid line shift. There is no acute stroke. There is confluent supratentorial periventricular and subcor tical white matter hypodensities. No acute intracranial hemorrhage or abnormal extra-axial fluid co llection. There is bilateral maxillary sinus mucosal thickening. There is opacification bilateral ma stoid air cells and of the right middle ear. IMPRESSION: 1. No fracture. 2. No acute post-traumatic intracranial abnormality. 3. Nonspecific white matter changes most commonly seen with small vessel disease. 4. Age appropriate tear generalized atrophy. 5. Bilateral mastoid air cell fluid. Opacified right middle ear. 6. Mild bilateral maxillary sinus mucosal thickening. RPTAT: HMVK .Moises Ascencio MD, Date Time Electronically viewed and signed by .Moises Ascencio MD, MD on 03/07/2017 00:40 .K/
--- NOTE | 2017-03-07 01:11 | ERD ---
ER Documentation Chief Complaint Date/Time DATE: 03/07/17 TIME: 01:09 Chief Complaint RLE deformity r/t fall HPI This is a 86-year-old female comes on the right lower extremity deformity status post fall. Patient on x-ray to confirm the fracture. Sent for further evaluation and management here. Patient cannot provide any relevant history as patient is demented at baseline. ROS All systems reviewed and are negative except as per history of present illness. Medications Home Meds Reported Medications Benzocaine/Menthol (SORE THROAT LOZENGE) 1 Each Lozenge, 1 EACH PO DAILY Y for PRN, LOZENGE 11/08/16 Sennosides* (Senna Lax*) 8.6 Mg Tablet, 1 TAB PO DAILY, TAB 11/08/16 Sevelamer Carbonate* (Renvela*) 800 Mg Tablet, 0.8 GM PO WITH MEALS, TAB 11/08/16 Multivit/Ca Carb/B Cmplx/Fa* (Sofy-Cooper*) 1 Tab Tab, 1 TAB PO DAILY, TAB 11/08/16 Pantoprazole* (Pantoprazole*) 40 Mg Tablet.dr, 40 MG PO AC BREAKFAST, TAB 11/08/16 Nifedipine* (Nifedipine ER*) 60 Mg Tablet.sa, 60 MG PO BID, TAB.SA HOLD FOR SBP LESS THAN 110 MMHG OR HR LESS THAN 60 BPM 11/08/16 Atorvastatin* (Atorvastatin*) 40 Mg Tablet, 40 MG PO QHS, #30 TAB 11/08/16 Hydroxyzine Hcl* (Hydroxyzine Hcl*) 25 Mg Tablet, 25 MG PO Q6 Y for ITCHING, # 30 TAB 11/08/16 Folic Acid* (Folic Acid*) 1 Mg Tablet, 1 MG PO DAILY, TAB 11/08/16 Docusate Sodium* (Docusate Sodium*) 100 Mg Capsule, 100 MG PO BID, #60 CAP 11/08/16 Carvedilol* (Coreg*) 12.5 Mg Tablet, 12.5 MG PO BID, #60 TAB HOLD FOR SBP LESS THAN 110 MMHG OR HR LESS THAN 60 BPM 11/08/16 Clonidine Patch (CLONIDINE PATCH) 0.3 Mg/24 Hr Patch, 1 PATCH.WK TD Q7D, #4 PATCH.WK 11/08/16 Aspirin* (Aspirin* EC) 81 Mg Tablet.dr, 81 MG PO DAILY, TAB 11/08/16 Hydralazine Hcl* (Apresoline*) 50 Mg Tab, 100 MG PO TID, #180 TAB HOLD FOR SBP LESS THAN 110 MMHG OR HR LESS THAN 60 BPM 11/08/16 Allergies Allergies: Coded Allergies: No Known Allergy (Verified , 11/08/16) PMhx/Soc History of Surgery: No Anesthesia Reaction: No Hx Neurological Disorder: No Hx Respiratory Disorders: Yes Hx Cardiac Disorders: Yes (CHF, HTN) Hx Psychiatric Problems: No Hx Miscellaneous Medical Probl: Yes (ESKD, PNA, DEMENTIA) Hx Alcohol Use: No Hx Substance Use: No Hx Tobacco Use: No Smoking Status: Unknown if ever smoked Physical Exam Vitals Vital Signs Date Time Temp Pulse Resp B/P Pulse Ox O2 Delivery O2 Flow Rate FiO2 03/06/17 23:27 97.5 89 16 175/95 97 Physical Exam Const: [] Head: Atraumatic Eyes: Normal Conjunctiva ENT: Normal External Ears, Nose and Mouth. Neck: Full range of motion..~ No meningismus. Resp: Clear to auscultation bilaterally Cardio: Regular rate and rhythm, no murmurs Abd: Soft, non tender, non distended. Normal bowel sounds Skin: No petechiae or rashes Back: No midline or flank tenderness Ext: No cyanosis, or edema Neur: Awake and alert Psych: Normal Mood and Affect Results 24 hrs Current Medications Medications (Trade) Dose Ordered Sig/Lali Route PRN Reason Start Time Stop Time Status Last Admin Dose Admin Morphine Sulfate (morphine) 4 mg ONCE STAT IV 03/06/17 23:30 03/06/17 23:31 DC 03/06/17 23:56 Ondansetron HCl (Zofran Inj) 4 mg ONCE STAT IV 03/06/17 23:30 03/06/17 23:31 DC 03/06/17 23:40 Procedures/MDM X-ray Tib/Fib 2V Interpreted by me: Bones: Tibial diaphyseal fracture Joints: [No dislocation] Foreign body: [None] Splint Assessment: Neurovascularly intact post splint placement with good fit. CT of the head was negative Medical decision-making: Patient has a tibial fracture. Is been splinted. Patient can be managed as an outpatient. Patient will be discharged back to intermediate facility. Departure Diagnosis: Primary Impression: Fall Encounter type: initial encounter Qualified Code: W19.XXXA - Fall, initial encounter Additional Impression: Tibial fracture Encounter type: initial encounter Tibia location: distal Fracture type: closed Fracture morphology: unspecified fracture morphology Laterality: unspecified laterality Qualified Code: S82.309A - Closed fracture of distal end of tibia, unspecified fracture morphology, unspecified laterality, initial encounter Condition: Stable Patient Instructions: Fracture, Lower Extremity AJAY DAVID March 07, 2017 01:11
[2017-03-07 01:38] VITALS: BP 177/79; PULSE 73; RESP 18; TEMP 98
== END 2017-03-07 02:20 | disposition home or self-care (01) ==
LOC: E/R 23:12
DX: S89.101A Unspecified physeal fracture of lower end of right tibia, initial encounter for closed fracture (principal); I50.9 Heart failure, unspecified; I12.0 Hypertensive chronic kidney disease with stage 5 chronic kidney disease or end stage renal disease; N18.6 End stage renal disease; R93.0 Abnormal findings on diagnostic imaging of skull and head, not elsewhere classified; R40.2142 Coma scale, eyes open, spontaneous, at arrival to emergency department; R40.2242 Coma scale, best verbal response, confused conversation, at arrival to emergency department; R40.2352 Coma scale, best motor response, localizes pain, at arrival to emergency department; W19.XXXA Unspecified fall, initial encounter; Y92.9 Unspecified place or not applicable; Z79.82 Long term (current) use of aspirin
CPT/HCPCS: 29505; 70450; 73590; 96374; 96375; 99285; J2270; J2405

== ENCOUNTER 2017-06-28 12:52 | Inpatient (IN) | payer MEDICARE, OTHER ==
[2017-06-28] VITALS (14 sets, daily range): BP systolic 125–160; BP diastolic 70–98; PULSE 78–101; RESP 16; TEMP 99.9; Ht 157.5 cm; Wt 48.0 kg
[~2017-06-28] VITALS: Ht 157.5 cm; Wt 48.0 kg
[2017-06-28] MEDS ORDERED: SOD CHLORIDE 0.9% 500 ML IV STA (13:10)
[2017-06-28 13:47] LABS: BASOPHIL # 0.1 10^3/ul (0.0-0.1); BASOPHILS % 0.7 % (0.0-2.0); EOSINOPHILS # 0.1 10^3/ul (0.0-0.5); EOSINOPHILS % 0.7 % (0.0-7.0); HEMATOCRIT 51.4 % (37.0-47.0); HEMOGLOBIN 15.6 g/dl (12.0-16.0); LYMPHOCYTES # 0.7 10^3/ul (0.8-2.9); LYMPHOCYTES % 9.7 % (15.0-51.0); MEAN CORPUSCULAR HEMOGLOBIN 31.4 pg (29.0-33.0); MEAN CORPUSCULAR HGB CONC 30.4 g/dl (32.0-37.0); MEAN CORPUSCULAR VOLUME 103.4 fl (82.0-101.0); MEAN PLATELET VOLUME 11.2 fl (7.4-10.4); MONOCYTE # 0.4 10^3/ul (0.3-0.9); MONOCYTES % 5.2 % (0.0-11.0); NEUTROPHILS % 83.6 % (39.0-77.0); PLATELET COUNT 159 10^3/UL (140-415); RED BLOOD COUNT 4.97 10^6/ul (4.20-5.40); RED CELL DISTRIBUTION WIDTH 14.9 % (11.5-14.5); WHITE BLOOD COUNT 6.9 10^3/ul (4.8-10.8)
--- NOTE | 2017-06-28 13:58 | RADRPT ---
PROCEDURE: XR Chest. CLINICAL INDICATION: sepsis . TECHNIQUE: Single frontal chest x-ray. COMPARISON: 11/08/2016 FINDINGS: There is a right sided tunneled dialysis catheter in place unchanged. . Cardiomegaly with calcific a therosclerosis of the aorta is present. Hilar vascular prominence and congestion is decreased since previous exam. There is mild bibasilar atelectasis.. There are no new alveolar infiltrates or edema .. The osseous structures are intact. IMPRESSION: Right sided tunneled dialysis catheter in place. Cardiomegaly with mild hilar vascular congestion and bibasilar atelectasis. Overall congestive marte es are improved since prior exam.. RPTAT: HJPL .Andrzej Gruber MD, MD Date Time Electronically viewed and signed by .Andrzej Gruber MD, on 06/28/2017 13:58 .L/
[2017-06-28 14:00] LABS: PROTIME 13.2 Sec (12.2-14.2)
[2017-06-28 14:01] LABS: PARTIAL THROMBOPLASTIN TIME 31.3 Sec (25.0-35.0)
[2017-06-28 14:06] LABS: ALBUMIN 3.3 g/dl (3.3-4.9); ALBUMIN/GLOBULIN RATIO 0.75; BILIRUBIN,INDIRECT 0.2 mg/dl (0-1.1); BILIRUBIN,TOTAL 0.2 mg/dl (0.2-1.3); CALCIUM 11.6 mg/dl (8.4-10.2); CREATININE 4.96 mg/dl (0.44-1.00); TOTAL PROTEIN 7.7 g/dl (6.1-8.1)
[2017-06-28 14:13] LABS: POTASSIUM 5.6 mmol/L (3.5-5.1)
[2017-06-28 14:18] LABS: TROPONIN-I 0.102 ng/ml (0.00-0.12)
--- NOTE | 2017-06-28 15:08 | ERA ---
ER Documentation Chief Complaint Date/Time DATE: 06/28/17 TIME: 15:06 Chief Complaint aloc more altered than normal missed 3 dialysis DNR HPI This is an 86-year-old female sent from a halfway facility for decreased level of consciousness. Apparently the patient has baseline decreased mental status for dementia however today she is more subdued. She also is on dialysis and is missed 2 dialysis treatments. Patient is unable to give a history whatsoever. The patient from the halfway facility states that she has not had any recent symptoms of nausea vomiting diarrhea or fever. ROS All systems reviewed and are negative except as per history of present illness. Medications Home Meds Reported Medications Benzocaine/Menthol (SORE THROAT LOZENGE) 1 Each Lozenge, 1 EACH PO DAILY Y for PRN, LOZENGE 11/08/16 Sennosides* (Senna Lax*) 8.6 Mg Tablet, 1 TAB PO DAILY, TAB 11/08/16 Sevelamer Carbonate* (Renvela*) 800 Mg Tablet, 0.8 GM PO WITH MEALS, TAB 11/08/16 Multivit/Ca Carb/B Cmplx/Fa* (Sofy-Cooper*) 1 Tab Tab, 1 TAB PO DAILY, TAB 11/08/16 Pantoprazole* (Pantoprazole*) 40 Mg Tablet.dr, 40 MG PO AC BREAKFAST, TAB 11/08/16 Nifedipine* (Nifedipine ER*) 60 Mg Tablet.sa, 60 MG PO BID, TAB.SA HOLD FOR SBP LESS THAN 110 MMHG OR HR LESS THAN 60 BPM 11/08/16 Atorvastatin* (Atorvastatin*) 40 Mg Tablet, 40 MG PO QHS, #30 TAB 11/08/16 Hydroxyzine Hcl* (Hydroxyzine Hcl*) 25 Mg Tablet, 25 MG PO Q6 Y for ITCHING, # 30 TAB 11/08/16 Folic Acid* (Folic Acid*) 1 Mg Tablet, 1 MG PO DAILY, TAB 11/08/16 Docusate Sodium* (Docusate Sodium*) 100 Mg Capsule, 100 MG PO BID, #60 CAP 11/08/16 Carvedilol* (Coreg*) 12.5 Mg Tablet, 12.5 MG PO BID, #60 TAB HOLD FOR SBP LESS THAN 110 MMHG OR HR LESS THAN 60 BPM 11/08/16 Clonidine Patch (CLONIDINE PATCH) 0.3 Mg/24 Hr Patch, 1 PATCH.WK TD Q7D, #4 PATCH.WK 11/08/16 Aspirin* (Aspirin* EC) 81 Mg Tablet.dr, 81 MG PO DAILY, TAB 11/08/16 Hydralazine Hcl* (Apresoline*) 50 Mg Tab, 100 MG PO TID, #180 TAB HOLD FOR SBP LESS THAN 110 MMHG OR HR LESS THAN 60 BPM 11/08/16 Allergies Allergies: Coded Allergies: No Known Allergy (Verified , 06/28/17) PMhx/Soc History of Surgery: No Anesthesia Reaction: No Hx Neurological Disorder: No Hx Respiratory Disorders: Yes Hx Cardiac Disorders: Yes (CHF, HTN) Hx Psychiatric Problems: No Hx Miscellaneous Medical Probl: Yes (ESRD, PNA, DEMENTIA, DIALYSIS) Hx Alcohol Use: No Hx Substance Use: No Hx Tobacco Use: No Smoking Status: Unknown if ever smoked FmHx Family History: No coronary disease Physical Exam Vitals Vital Signs Date Time Temp Pulse Resp B/P Pulse Ox O2 Delivery O2 Flow Rate FiO2 06/28/17 17:10 79 12 145/75 99 Room Air 06/28/17 13:49 Nasal Cannula 3 06/28/17 13:10 97.7 89 18 214/132 99 Physical Exam Const: Well-developed, well-nourished, minimal responsiveness Head: Atraumatic, normocephalic Eyes: Normal Conjunctiva, PERRLA, EOMI, normal sclera, no nystagmus ENT: Normal External Ears, Nose and Mouth, moist mucus membranes. Neck: Full range of motion. No meningismus, no lymphadenopathy. Resp: Clear to auscultation bilaterally, no wheezing, rhonchi, rales Cardio: Regular rate and rhythm, no murmurs, S1 S2 present Abd: Soft, non tender x 4, non distended. Normal bowel sounds, no guarding or rebound, no pulsitile abdominal masses or bruits Skin: No petechiae or rashes, no ecchymosis , no maculopapular rash Back: No midline or flank tenderness Ext: No cyanosis, or edema, FROM x 4, normal inspection, neurovascularly intact x 4 Neur: Obtunded with minimal responsiveness to verbal, does withdraw to pain, no airway compromise, moves all fours sensation intact x 4, Psych: Unable to assess Result Diagram: 06/28/17 1325 06/28/17 1325 Results 24 hrs Laboratory Tests Test 06/28/17 13:25 White Blood Count 6.910^3/ul Red Blood Count 4.9710^6/ul Hemoglobin 15.6g/dl Hematocrit 51.4% Mean Corpuscular Volume 103.4fl Mean Corpuscular Hemoglobin 31.4pg Mean Corpuscular Hemoglobin Concent 30.4g/dl Red Cell Distribution Width 14.9% Platelet Count 63909^3/UL Mean Platelet Volume 11.2fl Neutrophils % 83.6% Lymphocytes % 9.7% Monocytes % 5.2% Eosinophils % 0.7% Basophils % 0.7% Nucleated Red Blood Cells % 0.0/100WBC Neutrophils # (Manual) 5.810^3/ul Lymphocytes # 0.710^3/ul Monocytes # 0.410^3/ul Eosinophils # 0.110^3/ul Basophils # 0.110^3/ul Nucleated Red Blood Cells # 0.010^3/ul Prothrombin Time 13.2Sec Prothrombin Time Ratio 1.0 INR International Normalized Ratio 1.00 Activated Partial Thromboplast Time 31.3Sec Sodium Level 138mmol/L Potassium Level 5.6mmol/L Chloride Level 104mmol/L Carbon Dioxide Level 20mmol/L Anion Gap 20 Blood Urea Nitrogen 43mg/dl Creatinine 4.96mg/dl Glucose Level 79mg/dl Lactic Acid Level 1.7mmol/L Calcium Level 11.6mg/dl Total Bilirubin 0.2mg/dl Direct Bilirubin 0.00mg/dl Indirect Bilirubin 0.2mg/dl Aspartate Amino Transf (AST/SGOT) 19IU/L Alanine Aminotransferase (ALT/SGPT) 15IU/L Alkaline Phosphatase 101IU/L Troponin I 0.102ng/ml Total Protein 7.7g/dl Albumin 3.3g/dl Globulin 4.40g/dl Albumin/Globulin Ratio 0.75 Current Medications Medications (Trade) Dose Ordered Sig/Lali Route PRN Reason Start Time Stop Time Status Last Admin Dose Admin Sodium Chloride (NS) 500 ml @ 500 mls/hr Q1H STAT IV 06/28/17 13:10 06/28/17 14:09 DC 06/28/17 13:48 Hydralazine HCl (Apresoline) 10 mg ONCE ONCE IV 06/28/17 16:30 06/28/17 16:31 DC 06/28/17 17:06 Nitroglycerin (Nitroglycerin 2% Oint) 1 inch ONCE STAT TD 06/28/17 16:27 06/28/17 16:30 DC 06/28/17 16:27 Procedures/MDM EKG: Rate/Rhythm: Sinus tachycardia left anterior fascicular block QRS, ST, QT: NORMAL NH, QRS, QT] Impression: NORMAL EKG PROCEDURE: CT Brain without contrast. CLINICAL INDICATION: Headache and possible sepsis TECHNIQUE: A CT of the brain was performed on a GE [employer] 64-slice CT scanner utilizing axial imaging from the skull base through the vertex without IV contrast. Multiplanar reformatted images were made. Images were reviewed on a PACS workstation. The CTDIvol is 44.46 mGy and the DLP is 630.20 mGycm. One of the following 3 does reduction techniques were used during this CT examination: 1) Automated exposure control 2) Adjustment of the mA +/- kV according to patient size or 3) Use of iterative reconstruction technique COMPARISON: CT brain 03/07/2070 FINDINGS: There is no intracranial hemorrhage, mass effect, or midline shift. No extra- axial fluid collection is seen. The ventricles and sulci are age appropriate. Mild to moderate diffuse volume loss is present. Confluent decreased attenuation is present in the bilateral subcortical white matter, centrum semiovale and periventricular white matter compatible with moderate chronic microvascular ischemic disease. Moderate vascular calcifications are present of the intracranial internal carotid arteries and the vertebral arteries. The visualized scalp and calvarium are normal. The bilateral orbits are normal. The bilateral paranasal sinuses demonstrate chronic mucosal thickening in the bilateral ethmoid and maxillary sinuses. The bilateral mastoid air cells demonstrate opacification and soft tissue in the right mastoid air cells and right middle ear. IMPRESSION: 1. No evidence of acute intracranial hemorrhage, infarcts, or acute intracranial pathology. 2. Moderate chronic microvascular ischemic disease 3. Moderate diffuse volume loss. 4. Moderate atherosclerotic vascular disease 5. Chronic bilateral ethmoid and maxillary sinus disease. RPTAT: HDC .Hanna Hussein MD, MD Date Time Electronically viewed and signed by .Hanna Hussein MD, MD on 06/28/2017 16: 59 .C/ CC: GODWIN CAST DO PROCEDURE: XR Chest. CLINICAL INDICATION: sepsis . TECHNIQUE: Single frontal chest x-ray. COMPARISON: 11/08/2016 FINDINGS: There is a right sided tunneled dialysis catheter in place unchanged. . Cardiomegaly with calcific atherosclerosis of the aorta is present. Hilar vascular prominence and congestion is decreased since previous exam. There is mild bibasilar atelectasis.. There are no new alveolar infiltrates or edema.. The osseous structures are intact. IMPRESSION: Right sided tunneled dialysis catheter in place. Cardiomegaly with mild hilar vascular congestion and bibasilar atelectasis. Overall congestive changes are improved since prior exam.. RPTAT: HJPL .Andrzej Gruber MD, MD Date Time Electronically viewed and signed by .Andrzej Gruber MD, on 06/28/2017 13:58 .L/ CC: GODWIN CAST DO Patient was given blood pressure control is not better 147/80. I spoke with Dr. Bard friedman. Will admit the patient for altered mental status and uncontrolled hypertension. The patient apparently has been having some blood pressure issues over the weekend and is also refusing to take her medication. No evidence of acute stroke No sign of infection. Will observe and continue workup Departure Diagnosis: Primary Impression: Altered level of consciousness Additional Impression: Uncontrolled hypertension Condition: Stable GODWIN CAST DO Jun 28, 2017 15:08
[2017-06-28] MEDS ORDERED: NITROGLYCERIN 2% 1 GM OINT PKT TD STA (16:27)
[2017-06-28] MEDS ORDERED: hydrALAzine 20 MG INJ IV ONE (16:30)
--- NOTE | 2017-06-28 17:00 | RADRPT ---
PROCEDURE: CT Brain without contrast. CLINICAL INDICATION: Headache and possible sepsis TECHNIQUE: A CT of the brain was performed on a GE [employer] 64-slice CT scanner utilizing axial imaging from the skull base through the vertex without IV contrast. Multiplanar reformatted images were made. Images were reviewed on a PACS workstation. The CTDIvol is 44.46 mGy and the DLP is 630 .20 mGycm. One of the following 3 does reduction techniques were used during this CT examination: 1) Automated exposure control 2) Adjustment of the mA +/- kV according to patient size or 3) Use of iterative reconstruction technique COMPARISON: CT brain 03/07/2070 FINDINGS: There is no intracranial hemorrhage, mass effect, or midline shift. No extra-axial fluid collection is seen. The ventricles and sulci are age appropriate. Mild to moderate diffuse volume loss is pres ent. Confluent decreased attenuation is present in the bilateral subcortical white matter, centrum s emiovale and periventricular white matter compatible with moderate chronic microvascular ischemic di sease. Moderate vascular calcifications are present of the intracranial internal carotid arteries an d the vertebral arteries. The visualized scalp and calvarium are normal. The bilateral orbits are normal. The bilateral parana solomon sinuses demonstrate chronic mucosal thickening in the bilateral ethmoid and maxillary sinuses. T he bilateral mastoid air cells demonstrate opacification and soft tissue in the right mastoid air ce lls and right middle ear. IMPRESSION: 1. No evidence of acute intracranial hemorrhage, infarcts, or acute intracranial pathology. 2. Moderate chronic microvascular ischemic disease 3. Moderate diffuse volume loss. 4. Moderate atherosclerotic vascular disease 5. Chronic bilateral ethmoid and maxillary sinus disease. RPTAT: HDC .Hanna Hussein MD, MD Date Time Electronically viewed and signed by .Hanna Hussein MD, MD on 06/28/2017 16:59 .C/
[2017-06-28] MEDS ORDERED: SOD CHLORIDE 0.9% 1,000 ML IV SCH (17:51)
[2017-06-28] MEDS ORDERED: ONDANSETRON 4 MG INJ IV PRN ×2 (18:00→20:00)
[2017-06-28] MEDS ORDERED: ACETAMINOPHEN 325 MG TAB PO PRN ×2 (18:00→20:00)
[2017-06-28] MEDS: NA POLYST SULFON 15 GM/60 ML BTL PO STA ×2 (18:00→19:45)
[2017-06-28] MEDS ORDERED: INSULIN REGULAR, HUMAN 100 UNIT/1 ML 3ML VIAL IV STA (18:01)
[2017-06-28] MEDS ORDERED: DEXTROSE 50% 50 ML SYRINGE IV PRN (18:30)
[2017-06-28] MEDS ORDERED: DOCUSATE SODIUM 100 MG CAP PO PRN (20:00)
[2017-06-28] MEDS ORDERED: CEPASTAT LOZENGE PO PRN (20:00)
[2017-06-28] MEDS ORDERED: morphine 2 MG INJ IV PRN (20:00)
[2017-06-28] MEDS ORDERED: MAGNESIUM HYDROXIDE 30ML CUP PO PRN (20:00)
[2017-06-28] MEDS ORDERED: hydrOXYzine HCL 25 MG TAB PO PRN (20:00)
[2017-06-28] MEDS ORDERED: BISACODYL 10 MG SUPP PR PRN (20:00)
[2017-06-28] MEDS ORDERED: NITROGLYCERIN (SL) 0.4 MG TAB SL PRN (20:00)
[2017-06-28] MEDS ORDERED: NACL 0.9% 3 ML SYG IV SCH (20:00)
[2017-06-28] MEDS ORDERED: HYDROCODONE/APAP (5/325) TAB PO PRN (20:00)
[2017-06-28] MEDS ORDERED: SOD CHLORIDE 0.9% 1,000 ML IV PRN (20:01)
[2017-06-28 20:30] LABS: CREATINE KINASE < 20 IU/L (23-200)
[2017-06-28] MEDS ORDERED: ALBUMIN HUMAN 25% 50 ML IV PRN (20:30)
[2017-06-28] MEDS ORDERED: HEPARIN 1000 UNITS/ML 10 ML INJ CATHETER SCH (20:30)
[2017-06-28 20:33] LABS: CK-MB 2.14 ng/ml (0.0-2.4); TROPONIN-I 0.102 ng/ml (0.00-0.12)
[2017-06-28] MEDS: ATORVASTATIN 40 MG TAB PO SCH (22:00)
[2017-06-28] MEDS: DOCUSATE SODIUM 100 MG CAP PO SCH (22:00)
[2017-06-28] MEDS: FAMOTIDINE 20 MG TAB PO SCH (22:00)
[2017-06-28] MEDS: MULTIVIT/CA CARB/B CMPLX/FA TAB PO SCH (22:00)
[2017-06-28] MEDS: NIFEdipine (XL) 60 MG TAB PO SCH (22:00)
--- NOTE | 2017-06-28 22:54 | CONS ---
Date/Time of Note Date/Time of Note DATE: 06/28/17 TIME: 22:52 Assessment/Plan Assessment/Plan Chief Complaint/Hosp Course ESRD HTN HYPERKALEMIA NON COMPLIANCEW HD AND MEDS PLAN HD Problems: Consultation Date/Type/Reason Admit Date/Time Jun 28, 2017 at 17:52 Initial Consult Date Type of Consultation: renal 24 HR Interval Summary Constitutional: disoriented Exam/Review of Systems Vital Signs Vitals Vital Signs Date Time Temp Pulse Resp B/P Pulse Ox O2 Delivery O2 Flow Rate FiO2 06/28/17 22:02 94 06/28/17 20:25 99.9 22 157/90 99 Nasal Cannula 3.0 Exam Respiratory: diminished breath sounds Cardiovascular: regular rate and rhythm Gastrointestinal: soft Extremities: edema (+) Results Result Diagram: 06/28/17 1325 06/28/17 1325 Results 24 hrs Laboratory Tests Test 06/28/17 13:25 06/28/17 17:30 06/28/17 21:36 White Blood Count 6.9 # Red Blood Count 4.97 # Hemoglobin 15.6 # Hematocrit 51.4 #H Mean Corpuscular Volume 103.4 H Mean Corpuscular Hemoglobin 31.4 Mean Corpuscular Hemoglobin Concent 30.4 L Red Cell Distribution Width 14.9 H Platelet Count 159 Mean Platelet Volume 11.2 H Neutrophils % 83.6 H Lymphocytes % 9.7 L Monocytes % 5.2 Eosinophils % 0.7 Basophils % 0.7 Nucleated Red Blood Cells % 0.0 Neutrophils # (Manual) 5.8 Lymphocytes # 0.7 L Monocytes # 0.4 Eosinophils # 0.1 Basophils # 0.1 Nucleated Red Blood Cells # 0.0 Prothrombin Time 13.2 Prothrombin Time Ratio 1.0 INR International Normalized Ratio 1.00 Activated Partial Thromboplast Time 31.3 Sodium Level 138 Potassium Level 5.6 H Chloride Level 104 Carbon Dioxide Level 20 L Anion Gap 20 H Blood Urea Nitrogen 43 H Creatinine 4.96 H Glucose Level 79 Lactic Acid Level 1.7 1.6 1.3 Calcium Level 11.6 H Total Bilirubin 0.2 Direct Bilirubin 0.00 Indirect Bilirubin 0.2 Aspartate Amino Transf (AST/SGOT) 19 Alanine Aminotransferase (ALT/SGPT) 15 Alkaline Phosphatase 101 Troponin I 0.102 0.102 Total Protein 7.7 Albumin 3.3 Globulin 4.40 H Albumin/Globulin Ratio 0.75 Creatine Kinase < 20 L Creatine Kinase Index Creatinine Kinase MB (Mass) 2.14 Thyroid Stimulating Hormone (TSH) 5.040 H Free Thyroxine 1.61 Medications Medications Current Medications Sodium Chloride (NS) 1,000 ml @ 80 mls/hr [id number] IV Last administered on 06/28t 19:50; Admin Dose 80 MLS/HR; Start 06/28/17 at 17:51; Stop 06/29/17 at 06: 20 Dextrose (D50w Syringe) ONCE PRN IV POC BLOOD GLUCOSE <250 MG/DL; Start at 18:30; Stop 06/28/17 at 23:00 Aspirin (Halfprin) 81 mg DAILY PO ; Start 06/29/17 at 09:00 Atorvastatin Calcium (Lipitor) 40 mg QHS PO ; Start 06/28/17 at 21:00 Phenol (Cepastat Lozenge) 1 lozenge Q4 PRN PO COUGH; Start 06/28/17 at 20:00 Carvedilol (Coreg) 12.5 mg BID PO ; Start 06/28/17 at 21:00 Clonidine HCl (Catapres-Tts 3 Patch) 1 patch Q7D TRANSDERM ; Start 06/28/17 at 20:00 Docusate Sodium (Colace) 100 mg BID PO ; Start 06/28/17 at 21:00 Folic Acid (Folic Acid) 1 mg DAILY PO ; Start 06/29/17 at 09:00 Hydralazine HCl (Apresoline) 100 mg TID PO ; Start 06/28/17 at 21:00 Hydroxyzine HCl (Atarax) 25 mg Q6H PRN PO ITCHING; Start 06/28/17 at 20:00 Multivit/Ca Carb/ B Cmplx/FA/Prenat (Sofy-Cooper) 1 tab DAILY PO ; Start 06/28/17 at 20:00 Nifedipine (Procardia Xl) 60 mg BID PO ; Start 06/28/17 at 21:00 Senna (Senokot) 1 tab DAILY PO ; Start 06/29/17 at 09:00 Ondansetron HCl (Zofran Inj) 4 mg Q6H PRN IV NAUSEA AND/OR VOMITING; Start 10/02 at 20:00 Nitroglycerin (Nitroglycerin (Sl Tab) 0.4 Mg) 1 tab Q5M PRN SL CHEST PAIN; Start 06/28/17 at 20:00 Acetaminophen (Tylenol Tab) 650 mg Q6H PRN PO PAIN LEVEL 1-3 OR FEVER; Start at 20:00 Acetaminophen/ Hydrocodone Bitart ([place] (5/325)) 1 tab Q6H PRN PO PAIN LEVEL 4 -6; Start 06/28/17 at 20:00 Morphine Sulfate (morphine) 2 mg Q4H PRN IV PAIN LEVEL 7-10; Start 06/28/17 at 20:00 Docusate Sodium (Colace) 100 mg Q12H PRN PO CONSTIPATION; Start 06/28/17 at 20: 00 Magnesium Hydroxide (Milk Of Mag) 30 ml DAILY PRN PO CONSTIPATION; Start at 20:00 Bisacodyl (Dulcolax Supp) 10 mg DAILY PRN [place] CONSTIPATION; Start 06/28/17 at 20 :00 Famotidine 10 mg 10 mg Q48H PO ; Start 06/28/17 at 21:00 Sodium Chloride (NS) 1,000 ml @ 0 mls/hr Q0M PRN IV TO KEEP SBP ABOVE 90; Start 06/28/17 at 20:01 GLENNY RACHEL MD Jun 28, 2017 22:54
[2017-06-29] VITALS (20 sets, daily range): BP systolic 153–219; BP diastolic 67–106; PULSE 65–112; RESP 16–20
--- NOTE | 2017-06-29 01:04 | RADRPT ---
PROCEDURE: MR Brain without contrast. CLINICAL INDICATION: Neurologic deficit. TECHNIQUE: An MRI of the brain was performed without intravenous contrast. Axial diffusion, reyes l T2* GRE, axial T2 FLAIR, axial T2, sagittal T1, and axial T1 FLAIR images were obtained. The exam ination was performed on a 3 [employer] MRI scanner. COMPARISON: Brain CT dated 06/28/2017 FINDINGS: There is mild to moderate generalized volume loss without evidence of hydrocephalus or mass effect. No acute intracranial hemorrhage or extra-axial collection is seen. There is no acute infarction. Patchy T2 hyperintensities in the supratentorial white matter are nonspecific but likely represent t he sequela of moderate to severe chronic microvascular ischemic disease. No abnormal gradient echo susceptibility artifact is identified within the brain parenchyma. There are normal flow voids in t he proximal intracranial arteries. Incidental note is made of an empty sella turcica. There is mild mucosal thickening in the paranasal sinuses a right mastoid effusion is noted. The ext racranial soft tissues and osseous structures are unremarkable. IMPRESSION: 1. No acute intracranial pathology. 2. Mild to moderate generalized volume loss. 3. Moderate to severe chronic microvascular ischemic changes. 4. Empty sella turcica. 5. Right mastoid effusion, nonspecific. Mastoiditis is not excluded. RPTAT: HTAR .Benedict Jensen MD, MD Date Time Electronically viewed and signed by .Benedict Jensen MD, on 06/29/2017 01:03 .R/
[2017-06-29] MEDS ORDERED: VANCOMYCIN IV PER PHARMACY XX SCH (05:30)
[2017-06-29] MEDS ORDERED: hydrALAzine 20 MG INJ IV ONE (05:30)
[2017-06-29] MEDS ORDERED: VANCOMYCIN 1 GM in NS 250 ML IVPB ONE (06:00)
[2017-06-29 06:22] LABS: WHITE BLOOD COUNT 6.6 10^3/ul (4.8-10.8)
[2017-06-29 06:23] LABS: BASOPHILS % 0.5 % (0.0-2.0); EOSINOPHILS # 0.1 10^3/ul (0.0-0.5); EOSINOPHILS % 0.8 % (0.0-7.0); HEMATOCRIT 44.4 % (37.0-47.0); HEMOGLOBIN 13.4 g/dl (12.0-16.0); LYMPHOCYTES # 0.8 10^3/ul (0.8-2.9); LYMPHOCYTES % 11.9 % (15.0-51.0); MEAN CORPUSCULAR HEMOGLOBIN 31.2 pg (29.0-33.0); MEAN CORPUSCULAR HGB CONC 30.2 g/dl (32.0-37.0); MEAN CORPUSCULAR VOLUME 103.5 fl (82.0-101.0); MONOCYTE # 0.5 10^3/ul (0.3-0.9); MONOCYTES % 8.2 % (0.0-11.0); NEUTROPHILS % 78.3 % (39.0-77.0); RED BLOOD COUNT 4.29 10^6/ul (4.20-5.40)
[2017-06-29 06:29] LABS: PLATELET COUNT 115 10^3/UL (140-415); POSITIVE DIFF @See below
[2017-06-29] MEDS: CLONIDINE 0.3 MG/24 HR PATCH TRANSDERM SCH ×2 (06:39→06:40)
[2017-06-29 06:59] LABS: CK-MB 3.66 ng/ml (0.0-2.4)
[2017-06-29 07:00] LABS: ALBUMIN 2.8 g/dl (3.3-4.9); ALBUMIN/GLOBULIN RATIO 0.75; BILIRUBIN,INDIRECT 0.1 mg/dl (0-1.1); BILIRUBIN,TOTAL 0.1 mg/dl (0.2-1.3); CALCIUM 10.7 mg/dl (8.4-10.2); CHOL/HDL RATIO 6.2 RATIO; CREATININE 3.76 mg/dl (0.44-1.00); POTASSIUM 4.5 mmol/L (3.5-5.1); TOTAL PROTEIN 6.5 g/dl (6.1-8.1)
[2017-06-29 07:02] LABS: CREATINE KINASE < 20 IU/L (23-200)
[2017-06-29 07:04] LABS: TROPONIN-I 0.152 ng/ml (0.00-0.12)
[2017-06-29] MEDS: PANTOPRAZOLE (EC) 40 MG TAB PO SCH (07:25)
[2017-06-29] MEDS: SEVELAMER CARBONATE 0.8 GM PKT PO SCH ×3 (07:55→16:34)
[2017-06-29] MEDS: FOLIC ACID 1 MG TAB PO SCH (08:12)
[2017-06-29] MEDS: ASPIRIN (EC) 81 MG TAB PO SCH (08:12)
[2017-06-29] MEDS: DOCUSATE SODIUM 100 MG CAP PO SCH ×2 (08:12→21:00)
[2017-06-29] MEDS: NIFEdipine (XL) 60 MG TAB PO SCH ×2 (08:12→21:00)
[2017-06-29] MEDS: MULTIVIT/CA CARB/B CMPLX/FA TAB PO SCH (08:13)
[2017-06-29] MEDS: SENNA TAB PO SCH (08:13)
--- NOTE | 2017-06-29 10:37 | HP ---
Date/Time of Note Date/Time of Note DATE: 06/29/17 TIME: 10:36 Assessment/Plan VTE Prophylaxis VTE Prophylaxis Intervention: heparin Lines/Catheters IV [facility] Saline Lock Urinary Cath still in place: No Assessment/Plan Assessment/Plan 86-year-old female with: 1. Severe encephalopathy, patient was almost comatose on presentation with systolic blood pressures in the 200s. CAT scan of the head followed by MRI of the brain are both negative for acute injury. Controlling blood pressure with IV medications and transdermal patches. Emergent hemodialysis last night, patient is a little more awake today but still remains n.p.o. due to encephalopathy and lethargy. Continue blood pressure control Check ammonia level Monitor blood sugar levels Continue to monitor neurologically, speech evaluation to be done again in a.m. and hopefully patient can start taking p.o. 2. Severe protein malnutrition, weight loss decreased p.o. intake, episodes of vomiting 1 yesterday, will check CAT scan of the abdomen and pelvis noncontrast to rule out masses or obstructive pattern. On exam patient nondistended. She is DNR, according to the daughter this morning they do not wish to put a feeding tube. 3. Malignant hypertension, episode of hypertensive urgency yesterday. Blood pressure better controlled this morning with IV agents and post hemodialysis overnight. 4. End-stage renal disease, on hemodialysis now. Unfortunately she missed session last Tuesday, her session yesterday was made up last night. 5. Right tibial fracture, subacute to chronic, cast in place. Follow-up with orthopedic surgery as an outpatient. 6. Gram-positive cocci positive blood sugars 2, patient started on vancomycin last night, repeat blood cultures today. Follow-up culture sensitivities. Prophylaxis: Heparin subcu for DVT prophylaxis, Pepcid for GI prophylaxis Disposition: Dialysis per nephrology, CAT scan abdomen and pelvis, patient still n.p.o. out of this morning therefore we will start her on D5 normal saline at 75 cc an hour. HPI/ROS Admit Date/Time Admit Date/Time Jun 28, 2017 at 17:52 Hx of Present Illness Chief complaint: Severe encephalopathy, unresponsiveness, end-stage renal disease with missed dialysis History of presenting illness: This is a 86-year-old female with known history of severe hypertension, hypertensive nephropathy with end-stage renal disease now dialysis dependent (S/T/T) who was brought into the emergency department by family with severe encephalopathy, unresponsiveness and reported missed dialysis on Tuesday. Patient apparently has been declining for the past 7-10 days, according to the daughter she has been more lethargic over the past 10 days, she has decreased p.o. intake over the past 10 days, she has been less responsive, and this past 3 days, her blood pressure has been running in the 200s, they have been unable to give her medications orally, she became completely unresponsive yesterday and she did miss dialysis session this past Tuesday. Oddly, the patient was apparently at [facility] where she was taken due to her elevated blood pressure and decreased responsiveness and according to the daughter the patient was kept overnight, cardiac workup was done and she was discharged back to her [facility] facility with no dialysis being performed. She was supposed to get her dialysis outpatient. However when she went or when they try to take her to dialysis she was unresponsive with elevated blood pressure and deemed unstable for outpatient dialysis. Last night responsive according to the ER physician, CAT scan of the head was negative, vital signs remained stable with notable elevated systolic blood pressures in the 200. Her laboratory data did show metabolic acidosis and hyperkalemia emergent dialysis overnight, she is more awake this morning but still lethargic and unable to take p.o. Her systolic blood pressures are still running in the 200s, her troponin came back slightly elevated. She will be getting a cardiac workup while awaiting the [facility] records. She will be seen by nephrology she may need additional dialysis. Also blood cultures came back positive for gram-positive cocci, she was started on vancomycin, repeat blood cultures will be ordered. ROS Review of system mostly unable to obtain from patient, however from the daughter , patient has been lethargic/encephalopathic and progressed unresponsiveness by yesterday, she only reports that the patient was vomiting yesterday while getting x-rays. Otherwise no fevers, chest pains actually reported, just neurological decline. Subjective hx not possible: pt non-verbal PMH/Family/Social Past Medical History Malignant hypertension End-stage renal disease on hemodialysis Right tibial fracture status post casting 2 months ago, patient nonweightbearing right lower extremity Possible underlying mild to moderate dementia, however the daughter denies any history with memory or abnormal behavior. Her recent encephalopathy and altered level of consciousness seems to be mostly delirium. Medical History: high cholesterol Past Surgical History Status post dialysis access placement. Family History Significant Family History: no pertinent family hx Social History Alcohol Use: none Smoking Status: Never smoker Drug Use: none Exam/Review of Systems Vital Signs Vitals Vital Signs Date Time Temp Pulse Resp B/P Pulse Ox O2 Delivery O2 Flow Rate FiO2 06/29/17 08:30 100 Nasal Cannula 2.0 06/29/17 08:02 90 06/29/17 07:17 97.2 16 179/88 182/86 Intake and Output 06/28/17 06/28/17 06/29/17 15:00 23:00 07:00 Intake Total 300 ml Output Total 1700 ml Balance -1400 ml Exam Constitutional: frail, non-verbal, other (Severely lethargic, Latvian speaking ) Head: atraumatic, normocephalic Respiratory: clear to auscultation, normal air movement Cardiovascular: nl pulses, regular rate and rhythm Gastrointestinal: non-tender, soft Musculoskeletal: other (Right lower extremity cast in place for right tibial fracture) Extremities: normal pulses 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, confused, lethargic, other Labs Result Diagram: 06/29/1758 06/29/1758 Medications Medications Current Medications Aspirin (Halfprin) 81 mg DAILY PO ; Start 06/29/17 at 09:00 Atorvastatin Calcium (Lipitor) 40 mg QHS PO ; Start 06/28/17 at 21:00 Phenol (Cepastat Lozenge) 1 lozenge Q4 PRN PO COUGH; Start 06/28/17 at 20:00 Carvedilol (Coreg) 12.5 mg BID PO ; Start 06/28/17 at 21:00 Clonidine HCl (Catapres-Tts 3 Patch) 1 patch Q7D TRANSDERM Last administered on 06/29/17t 06:40; Admin Dose 1 PATCH; Start 06/28/17 at 20:00 Docusate Sodium (Colace) 100 mg BID PO ; Start 06/28/17 at 21:00 Folic Acid (Folic Acid) 1 mg DAILY PO ; Start 06/29/17 at 09:00 Hydralazine HCl (Apresoline) 100 mg TID PO ; Start 06/28/17 at 21:00 Hydroxyzine HCl (Atarax) 25 mg Q6H PRN PO ITCHING; Start 06/28/17 at 20:00 Multivit/Ca Carb/ B Cmplx/FA/Prenat (Sofy-Cooper) 1 tab DAILY PO ; Start 06/28/17 at 20:00 Nifedipine (Procardia Xl) 60 mg BID PO ; Start 06/28/17 at 21:00 Senna (Senokot) 1 tab DAILY PO ; Start 06/29/17 at 09:00 Ondansetron HCl (Zofran Inj) 4 mg Q6H PRN IV NAUSEA AND/OR VOMITING; Start 10/02 at 20:00 Nitroglycerin (Nitroglycerin (Sl Tab) 0.4 Mg) 1 tab Q5M PRN SL CHEST PAIN; Start 06/28/17 at 20:00 Acetaminophen (Tylenol Tab) 650 mg Q6H PRN PO PAIN LEVEL 1-3 OR FEVER; Start at 20:00 Acetaminophen/ Hydrocodone Bitart ([place] (5/325)) 1 tab Q6H PRN PO PAIN LEVEL 4 -6; Start 06/28/17 at 20:00 Morphine Sulfate (morphine) 2 mg Q4H PRN IV PAIN LEVEL 7-10; Start 06/28/17 at 20:00 Docusate Sodium (Colace) 100 mg Q12H PRN PO CONSTIPATION; Start 06/28/17 at 20: 00 Magnesium Hydroxide (Milk Of Mag) 30 ml DAILY PRN PO CONSTIPATION; Start at 20:00 Bisacodyl (Dulcolax Supp) 10 mg DAILY PRN [place] CONSTIPATION; Start 06/28/17 at 20 :00 Famotidine 10 mg 10 mg Q48H PO ; Start 06/28/17 at 21:00 Sodium Chloride (NS) 1,000 ml @ 0 mls/hr Q0M PRN IV TO KEEP SBP ABOVE 90; Start 06/28/17 at 20:01 Hydralazine HCl (Apresoline) 10 mg Q4H PRN IV ELEVATED BLOOD PRESSURE; Start at 09:30 Heparin Sodium (Porcine) (Heparin (5000 Units/0.5 ml)) 5,000 unit BID SC ; Start 06/29/17 at 12:00 Diagnostic Test (Pha) (Accu-Chek) 1 ea 02 XX ; Start 06/30/17 at 02:00 Procedures Procedures PROCEDURE: CT Brain without contrast. CLINICAL INDICATION: Headache and possible sepsis TECHNIQUE: A CT of the brain was performed on a GE [employer] 64-slice CT scanner utilizing axial imaging from the skull base through the vertex without IV contrast. Multiplanar reformatted images were made. Images were reviewed on a PACS workstation. The CTDIvol is 44.46 mGy and the DLP is 630.20 mGycm. One of the following 3 does reduction techniques were used during this CT examination: 1) Automated exposure control 2) Adjustment of the mA +/- kV according to patient size or 3) Use of iterative reconstruction technique COMPARISON: CT brain 03/07/2070 FINDINGS: There is no intracranial hemorrhage, mass effect, or midline shift. No extra- axial fluid collection is seen. The ventricles and sulci are age appropriate. Mild to moderate diffuse volume loss is present. Confluent decreased attenuation is present in the bilateral subcortical white matter, centrum semiovale and periventricular white matter compatible with moderate chronic microvascular ischemic disease. Moderate vascular calcifications are present of the intracranial internal carotid arteries and the vertebral arteries. The visualized scalp and calvarium are normal. The bilateral orbits are normal. The bilateral paranasal sinuses demonstrate chronic mucosal thickening in the bilateral ethmoid and maxillary sinuses. The bilateral mastoid air cells demonstrate opacification and soft tissue in the right mastoid air cells and right middle ear. IMPRESSION: 1. No evidence of acute intracranial hemorrhage, infarcts, or acute intracranial pathology. 2. Moderate chronic microvascular ischemic disease 3. Moderate diffuse volume loss. 4. Moderate atherosclerotic vascular disease 5. Chronic bilateral ethmoid and maxillary sinus disease. PROCEDURE: MR Brain without contrast. CLINICAL INDICATION: Neurologic deficit. TECHNIQUE: An MRI of the brain was performed without intravenous contrast. Axial diffusion, coronal T2* GRE, axial T2 FLAIR, axial T2, sagittal T1, and axial T1 FLAIR images were obtained. The examination was performed on a 3 [employer] MRI scanner. COMPARISON: Brain CT dated 06/28/2017 FINDINGS: There is mild to moderate generalized volume loss without evidence of hydrocephalus or mass effect. No acute intracranial hemorrhage or extra-axial collection is seen. There is no acute infarction. Patchy T2 hyperintensities in the supratentorial white matter are nonspecific but likely represent the sequela of moderate to severe chronic microvascular ischemic disease. No abnormal gradient echo susceptibility artifact is identified within the brain parenchyma. There are normal flow voids in the proximal intracranial arteries. Incidental note is made of an empty sella turcica. There is mild mucosal thickening in the paranasal sinuses a right mastoid effusion is noted. The extracranial soft tissues and osseous structures are unremarkable. IMPRESSION: 1. No acute intracranial pathology. 2. Mild to moderate generalized volume loss. 3. Moderate to severe chronic microvascular ischemic changes. 4. Empty sella turcica. 5. Right mastoid effusion, nonspecific. Mastoiditis is not excluded. RPTAT: HTAR .Benedict Jensen MD, MD Date Time Electronically viewed and signed by .Benedict Jensen MD, MD on 06/29/2017 01:03 .KEON BRYAN Jun 29, 2017 10:37
[2017-06-29] MEDS: DEXTROSE 5%-0.9% NACL 1,000 ML IV SCH (12:46)
[2017-06-29 12:52] LABS: CREATINE KINASE < 20 IU/L (23-200)
[2017-06-29 13:03] LABS: CK-MB 4.09 ng/ml (0.0-2.4)
[2017-06-29 13:04] LABS: TROPONIN-I 0.155 ng/ml (0.00-0.12)
[2017-06-29] MEDS: HEPARIN 5,000 UNIT/0.5 ML VIAL SC SCH ×2 (13:15→20:34)
[2017-06-29] MEDS: hydrALAzine 20 MG INJ IV PRN ×2 (15:45→20:30)
[2017-06-29] MEDS: ACCU-CHEK XX SCH ×2 (16:34→21:00)
[2017-06-29 19:57] LABS: CK-MB 4.82 ng/ml (0.0-2.4)
[2017-06-29 19:58] LABS: TROPONIN-I 0.173 ng/ml (0.00-0.12)
[2017-06-29] MEDS: ATORVASTATIN 40 MG TAB PO SCH (21:00)
--- NOTE | 2017-06-29 23:35 | CONS ---
Date/Time of Note Date/Time of Note DATE: 06/29/17 TIME: 23:33 Assessment/Plan Assessment/Plan Chief Complaint/Hosp Course ESRD 71138 consult HTN HYPERKALEMIA NON COMPLIANCEW HD AND MEDS PLAN HD cardio eval ang gi for wt loss Problems: Consultation Date/Type/Reason Admit Date/Time Jun 28, 2017 at 17:52 Type of Consultation: renal 24 HR Interval Summary Constitutional: No diaphoresis Exam/Review of Systems Vital Signs Vitals Vital Signs Date Time Temp Pulse Resp B/P Pulse Ox O2 Delivery O2 Flow Rate FiO2 06/29/17 21:02 Nasal Cannula 2.0 06/29/17 20:30 183/74 06/29/17 20:00 65 06/29/17 19:48 97.6 16 100 Intake and Output 06/28/17 06/28/17 06/29/17 15:00 23:00 07:00 Intake Total 300 ml Output Total 1700 ml Balance -1400 ml Exam Neck: supple Respiratory: clear to auscultation Cardiovascular: regular rate and rhythm Gastrointestinal: bowel sounds, non-tender, soft Extremities: No edema Results Result Diagram: 06/29/17 0558 06/29/17 0558 Results 24 hrs Laboratory Tests Test 06/29/17 05:58 06/29/17 10:07 06/29/17 11:51 06/29/17 16:33 White Blood Count 6.6 Red Blood Count 4.29 Hemoglobin 13.4 Hematocrit 44.4 Mean Corpuscular Volume 103.5 H Mean Corpuscular Hemoglobin 31.2 Mean Corpuscular Hemoglobin Concent 30.2 L Red Cell Distribution Width 15.0 H Platelet Count 115 #L Mean Platelet Volume 11.0 H Neutrophils % 78.3 H Lymphocytes % 11.9 L Monocytes % 8.2 Eosinophils % 0.8 Basophils % 0.5 Nucleated Red Blood Cells % 0.0 Neutrophils # (Manual) 5.1 Lymphocytes # 0.8 Monocytes # 0.5 Eosinophils # 0.1 Basophils # 0.0 Nucleated Red Blood Cells # 0.0 Sodium Level 139 Potassium Level 4.5 Chloride Level 104 Carbon Dioxide Level 27 Anion Gap 13 # Blood Urea Nitrogen 29 #H Creatinine 3.76 #H Glucose Level 88 Calcium Level 10.7 H Magnesium Level 2.0 Total Bilirubin 0.1 L Direct Bilirubin 0.00 Indirect Bilirubin 0.1 Aspartate Amino Transf (AST/SGOT) 16 Alanine Aminotransferase (ALT/SGPT) 16 Alkaline Phosphatase 81 Creatine Kinase < 20 L < 20 L Creatine Kinase Index Creatinine Kinase MB (Mass) 3.66 H 4.09 H Troponin I 0.152 *H 0.155 *H Total Protein 6.5 # Albumin 2.8 L Globulin 3.70 H Albumin/Globulin Ratio 0.75 Triglycerides Level 131 Cholesterol Level 182 LDL Cholesterol, Calculated 127 HDL Cholesterol 29 L Cholesterol/HDL Ratio 6.2 Ammonia < 9 L Prealbumin 8.8 L Bedside Glucose 93 Test 06/29/17 18:58 06/29/17 21:54 Creatine Kinase 28 Creatine Kinase Index 17.2 Creatinine Kinase MB (Mass) 4.82 H Troponin I 0.173 *H Bedside Glucose 85 Medications Medications Current Medications Aspirin (Halfprin) 81 mg DAILY PO ; Start 06/29/17 at 09:00 Atorvastatin Calcium (Lipitor) 40 mg QHS PO ; Start 06/28/17 at 21:00 Phenol (Cepastat Lozenge) 1 lozenge Q4 PRN PO COUGH; Start 06/28/17 at 20:00 Carvedilol (Coreg) 12.5 mg BID PO ; Start 06/28/17 at 21:00 Clonidine HCl (Catapres-Tts 3 Patch) 1 patch Q7D TRANSDERM Last administered on 06/29/17t 06:40; Admin Dose 1 PATCH; Start 06/28/17 at 20:00 Docusate Sodium (Colace) 100 mg BID PO ; Start 06/28/17 at 21:00 Folic Acid (Folic Acid) 1 mg DAILY PO ; Start 06/29/17 at 09:00 Hydralazine HCl (Apresoline) 100 mg TID PO ; Start 06/28/17 at 21:00 Hydroxyzine HCl (Atarax) 25 mg Q6H PRN PO ITCHING; Start 06/28/17 at 20:00 Multivit/Ca Carb/ B Cmplx/FA/Prenat ([place]of[place]) 1 tab DAILY PO ; Start 06/28/17 at 20:00 Nifedipine (Procardia Xl) 60 mg BID PO ; Start 06/28/17 at 21:00 Senna (Senokot) 1 tab DAILY PO ; Start 06/29/17 at 09:00 Ondansetron HCl (Zofran Inj) 4 mg Q6H PRN IV NAUSEA AND/OR VOMITING Last administered on 06/29/17 16:30; Admin Dose 4 MG; Start 06/28/17 at 20:00 Nitroglycerin (Nitroglycerin (Sl Tab) 0.4 Mg) 1 tab Q5M PRN SL CHEST PAIN; Start 06/28/17 at 20:00 Acetaminophen (Tylenol Tab) 650 mg Q6H PRN PO PAIN LEVEL 1-3 OR FEVER; Start at 20:00 Acetaminophen/ Hydrocodone Bitart ([place] (5/325)) 1 tab Q6H PRN PO PAIN LEVEL 4 -6; Start 06/28/17 at 20:00 Morphine Sulfate (morphine) 2 mg Q4H PRN IV PAIN LEVEL 7-10 Last administered on 06/29/17 16:29; Admin Dose 2 MG; Start 06/28/17 at 20:00 Docusate Sodium (Colace) 100 mg Q12H PRN PO CONSTIPATION; Start 06/28/17 at 20: 00 Magnesium Hydroxide (Milk Of Mag) 30 ml DAILY PRN PO CONSTIPATION; Start at 20:00 Bisacodyl (Dulcolax Supp) 10 mg DAILY PRN [place] CONSTIPATION; Start 06/28/17 at 20 :00 Famotidine 10 mg 10 mg Q48H PO ; Start 06/28/17 at 21:00 Sodium Chloride (NS) 1,000 ml @ 0 mls/hr Q0M PRN IV TO KEEP SBP ABOVE 90; Start 06/28/17 at 20:01 Hydralazine HCl (Apresoline) 10 mg Q4H PRN IV ELEVATED BLOOD PRESSURE Last administered on 06/29/17 20:30; Admin Dose 10 MG; Start 06/29/17 at 09:30 Heparin Sodium (Porcine) (Heparin (5000 Units/0.5 ml)) 5,000 unit BID SC Last administered on 06/29/17 20:34; Admin Dose 5,000 UNIT; Start 06/29/17 at 12:00 Diagnostic Test (Pha) 1 ea 1 ea 02 XX ; Start 06/30/17 at 02:00 Dextrose/Sodium Chloride (D5-NS) 1,000 ml @ 70 mls/hr [id number] IV Last administered on 06/29/17 12:46; Admin Dose 70 MLS/HR; Start 06/29/17 at 11:30 GLENNY RACHEL MD Jun 29, 2017 23:35
[2017-06-30] VITALS (23 sets, daily range): BP systolic 127–219; BP diastolic 62–112; PULSE 60–87; RESP 16–18
[2017-06-30] MEDS: hydrALAzine 20 MG INJ IV PRN ×3 (00:53→20:14)
[2017-06-30] MEDS ORDERED: ACCU-CHEK XX SCH (02:00)
--- NOTE | 2017-06-30 03:02 | RADRPT ---
PROCEDURE: CT Abdomen and Pelvis without contrast. CLINICAL INDICATION: Rule out mass or obstruction, abdominal pain TECHNIQUE: CT scan of the abdomen and pelvis without contrast was performed on a multidetector hig h-resolution CT scanner. The patient was scanned without intravenous contrast. Coronal and sagittal reformatted images were obtained from the axial source images. Images were reviewed on a high-resol [employer] PACS workstation. The total exam CTDI equals 9.42 mGy and the total exam DLP equals 431.35 mGy -cm. The patient is arms are by her side with resultant beam-hardening artifact projected over the a bdomen. One or more the following dose reduction techniques were utilized: Automated exposure control, adjus tment of the mA and / or kV according to patient's size, or use of iterative reconstruction techniqu e. COMPARISON: 01/12/2016 FINDINGS: Small bilateral pleural effusions left larger than right with bilateral lower lobe partial atelectas is again seen. Mitral annulus region calcification. Coronary artery calcification. Calcification in thoracoabdominal aorta. Calcification in region of aortic valve. Diffuse subcutaneous edema increase d compared to previous study. Cardiomegaly again seen. Mild pulmonary vascular congestion again appa rent. Small calcified granulomas again seen in liver. Multiple rounded fluid density structures in l iver likely cysts again seen. Cholecystectomy. No abnormality is seen in the spleen. The stomach is not distended. No abnormality seen in the pancreas. Atrophic kidneys with multiple bilateral cysts a gain seen. Small calcifications in kidneys could be vascular calcifications again seen. Calcificatio n in all branches of the abdominal aorta and iliac and femoral arteries No abdominal aortic aneurys m is seen. No biliary dilatation is seen. Small amount of ascites is again seen. Moderately large amount of stool in the rectum again seen. Vascular calcifications in uterus. Beam-hardening artifact arising from right hip prosthesis projected over lower pelvis limiting evaluation. Old fracture lef t inferior pubic ramus again seen. Mesenteric edema increased compared to previous study. Vascular c alcifications in uterus. The bladder is not well seen due to artifact. Diverticula in sigmoid colon. Nonspecific mild diffuse wall thickening in proximal to mid transverse colon and ascending colon no t seen on the previous study. No dilated small bowel loops are seen. No definite enlarged lymph node s are seen in the abdomen and pelvis. No pneumoperitoneum is seen. Diffuse osteopenia. Mild to moder ate osteoarthrosis at left hip. Degenerative changes at sacroiliac joints. Degenerative changes in t horacolumbar spine. Schmorl's nodes in thoracolumbar spine. IMPRESSION: Nonspecific mild diffuse wall thickening in ascending colon and proximal to mid transverse colon amie earing since previous study. Differential includes diagnosis congestion, hypoalbuminemia and infecti ous/inflammatory colitis and ischemic colitis. Consistent with anasarca increased compared to previo us study. Small amount of ascites not significantly changed compared to previous study. Mesenteric e brett increased compared to previous study. Small bilateral pleural effusions left larger than right with bilateral lower lobe partial atelectasis not significantly changed. Diffuse subcutaneous edema increased compared to previous study. Atherosclerosis. Cardiomegaly again seen. Mild pulmonary vasc ular congestion again apparent. Atrophic kidneys with multiple bilateral cysts again seen. Moderatel y large amount of stool in the rectum again seen. Please see above. RPTAT: HJES .Andrzej Montes MD, MD Date Time Electronically viewed and signed by .Andrzej Montes MD, MD on 06/30/2017 03:02 .S/
[2017-06-30] MEDS: DEXTROSE 5%-0.9% NACL 1,000 ML IV SCH ×2 (04:25→16:06)
[2017-06-30 07:25] LABS: BASOPHILS % 0.7 % (0.0-2.0); EOSINOPHILS # 0.2 10^3/ul (0.0-0.5); EOSINOPHILS % 3.1 % (0.0-7.0); HEMATOCRIT 42.3 % (37.0-47.0); HEMOGLOBIN 12.5 g/dl (12.0-16.0); LYMPHOCYTES # 0.7 10^3/ul (0.8-2.9); LYMPHOCYTES % 12.5 % (15.0-51.0); MEAN CORPUSCULAR HEMOGLOBIN 32.3 pg (29.0-33.0); MEAN CORPUSCULAR HGB CONC 29.6 g/dl (32.0-37.0); MEAN CORPUSCULAR VOLUME 109.3 fl (82.0-101.0); MEAN PLATELET VOLUME 11.2 fl (7.4-10.4); MONOCYTE # 0.4 10^3/ul (0.3-0.9); MONOCYTES % 6.5 % (0.0-11.0); NEUTROPHIL # 4.2 10^3/ul (1.6-7.5); PLATELET COUNT 122 10^3/UL (140-415); RED BLOOD COUNT 3.87 10^6/ul (4.20-5.40); RED CELL DISTRIBUTION WIDTH 15.2 % (11.5-14.5); WHITE BLOOD COUNT 5.5 10^3/ul (4.8-10.8)
[2017-06-30] MEDS: ACCU-CHEK XX SCH ×6 (07:25→20:32)
[2017-06-30] MEDS: PANTOPRAZOLE (EC) 40 MG TAB PO SCH (07:25)
[2017-06-30 07:49] LABS: CALCIUM 10.7 mg/dl (8.4-10.2); CREATININE 4.41 mg/dl (0.44-1.00); POTASSIUM 4.6 mmol/L (3.5-5.1)
[2017-06-30] MEDS: SEVELAMER CARBONATE 0.8 GM PKT PO SCH ×3 (07:55→16:47)
--- NOTE | 2017-06-30 08:09 | CONS ---
DATE OF ADMISSION: 06/28/2017 DATE OF CONSULTATION: 06/30/[address] Taylor: Thank you kindly for asking me to see this patient in renal consultation. HISTORY OF PRESENT ILLNESS: Patient with a history of ESRD, hypertension, history of a right foot fracture, has a cast on, who presented to this hospital with weakness, poor p.o. intake and some confusion. Noted to have blood pressure running right now 183/74 and patient missed hemodialysis. Patient herself was unable to give any detailed history. PAST MEDICAL HISTORY: Positive for hypertension, ESRD, right tibial fracture, history of sepsis, history of malnutrition, history of anemia, history of noncompliance. Patient also has a history of Enterococcus species faecalis bacteria, history of dyslipidemia, history of pneumonia. ALLERGIES/FAMILY HISTORY/SOCIAL HISTORY: Could not be obtained. MEDICATION: Listed as the patient is on: 1. Albumin. 2. Vancomycin. 3. Accu-Cheks. 4. Tylenol. 5. Aspirin. 6. Lipitor. 7. Bisacodyl. 8. Coreg. 9. Clonidine. 10. Docusate sodium. 11. Folic acid. 12. Pepcid. 13. Heparin. 14. Hydralazine. 15. [place]. 16. Multiple vitamin. 17. Nitroglycerin. 18. Nifedipine. REVIEW OF SYSTEMS: Could not be obtained. PHYSICAL EXAMINATION: GENERAL: Patient is awake. Not in any distress. VITAL SIGNS: As mentioned above. HEENT: Head is atraumatic, normocephalic. Pupils are equal and reactive. NECK: Supple. LUNGS: Clear. CVS: S1, S2 normal. . ABDOMEN: Soft, nontender. Bowel sounds . EXTREMITIES: No cyanosis, clubbing. Edema positive. THRESHING OPERATOR: The patient is awake and is moving both upper and lower extremities. LABORATORY: Hematocrit 44.4. Troponin 0.173. Potassium 4.5, BUN 29, creatinine 3.76. Albumin 2.8. Patient had a brain CT scan: No evidence of acute intracranial hemorrhage, moderate chronic microvascular ischemic change, moderate diffuse volume loss, moderate atherosclerosis vascular disease, chronic bilateral ethmoid and maxillary sinus disease. IMPRESSION: 1. Encephalopathy. 2. Uncontrolled hypertension. 3. Positive troponin. 4. [id number] myocardial infarction. 5. Malnutrition. 6. Hypoalbuminemia. 7. Protein-calorie malnutrition. 8. End-stage renal disease. 9. Right tibial fracture, has a cast on. 10. Hypertension. 11. Incomplete . PLAN: Continue hemodialysis. Patient will benefit from cardiology evaluation, as well as GI evaluation for possible weight loss. Continue hemodialysis. Blood pressure controlled. Laboratory data will be followed. Thank you, Dr. Taylor, for kindly asking me to evaluate patient in nephrology consultation. Dictated By: Reed Browne MD /willem/ton /Document#: [id number]
[2017-06-30] MEDS: DOCUSATE SODIUM 100 MG CAP PO SCH ×2 (08:44→20:31)
[2017-06-30] MEDS: MULTIVIT/CA CARB/B CMPLX/FA TAB PO SCH (08:45)
[2017-06-30] MEDS: FOLIC ACID 1 MG TAB PO SCH (08:45)
[2017-06-30] MEDS: ASPIRIN (EC) 81 MG TAB PO SCH (08:45)
[2017-06-30] MEDS: NIFEdipine (XL) 60 MG TAB PO SCH ×2 (08:45→20:32)
[2017-06-30] MEDS: SENNA TAB PO SCH (08:46)
[2017-06-30] MEDS: HEPARIN 5,000 UNIT/0.5 ML VIAL SC SCH ×2 (08:52→20:19)
[2017-06-30 10:27] LABS: CREATINE KINASE < 20 IU/L (23-200)
[2017-06-30] MEDS ORDERED: NITROGLYCERIN 0.3 MG/HR PATCH TRANSDERM SCH (10:30)
[2017-06-30 10:36] LABS: CK-MB 4.67 ng/ml (0.0-2.4)
[2017-06-30 10:39] LABS: TROPONIN-I 0.159 ng/ml (0.00-0.12)
--- NOTE | 2017-06-30 11:15 | PN ---
Date/Time of Note Date/Time of Note DATE: 06/30/17 TIME: 10:54 Assessment/Plan VTE Prophylaxis VTE Prophylaxis Intervention: heparin Lines/Catheters IV [facility]from [facility] PERMACATH Urinary Cath still in place: No Assessment/Plan Assessment/Plan 86-year-old female with: 1. Severe encephalopathy, patient was almost comatose on presentation with systolic blood pressures in the 200s. CAT scan of the head followed by MRI of the brain are both negative for acute injury. Controlling blood pressure with IV medications and transdermal patches. Nitro- Dur added, patient currently getting second round of dialysis. She is more awake today, she will be reevaluated by speech therapy. She still has ongoing encephalopathy and likely dementia. Glucose stable on D5 drip, Ammonia within normal Continue to monitor neurologically, speech re evaluation this morning, and hopefully patient can start taking p.o. 2. Severe protein malnutrition, weight loss decreased p.o. intake, episodes of vomiting 1 yesterday, CAT scan of the abdomen and pelvis with findings possibly consistent with mild colitis, will start patient on Zosyn, she is currently on vancomycin for gram- positive cocci in the blood, once we get speciation we may be able to DC her vancomycin to see her on Zosyn. She is DNR, according to the daughter they do not wish to put a feeding tube. 3. Malignant hypertension, episode of hypertensive urgency yesterday. Blood pressure better controlled this morning during dialysis, she already has a clonidine patch on board, will add Nitro-Dur patch 0.3, likely to be titrated to 0.6 within the next 24 to 48 hrs. 4. End-stage renal disease, on hemodialysis now per schedule 5. Right tibial fracture, subacute to chronic, cast in place. Follow-up with orthopedic surgery as an outpatient. 6. Gram-positive cocci positive blood culture 2, repeat blood cultures pending Continue vancomycin for now Follow-up culture sensitivities. Prophylaxis: Heparin subcu for DVT prophylaxis, Pepcid for GI prophylaxis Disposition: Dialysis per nephrology, antibiotics for positive blood culture and possible mild colitis on CAT scan, reevaluation by speech therapy today hopefully can start taking p.o. Needs blood pressure control still systolic in the 200s. Subjective 24 Hr Interval Summary Free Text/Dictation Patient is more awake this morning, she is currently on dialysis with better control blood pressure. Speech therapy will reevaluate this morning and hopefully patient will be able to start diet. Patient is DNR. Noted episodes of NSVT overnight. Afebrile. Exam/Review of Systems Vital Signs Vitals Vital Signs Date Time Temp Pulse Resp B/P Pulse Ox O2 Delivery O2 Flow Rate FiO2 06/30/17 10:20 82 20 06/30/17 07:16 97.0 219/102 98 06/30/17 00:13 Nasal Cannula 2.0 Intake and Output 06/29/17 06/29/17 06/30/17 15:00 23:00 07:00 Intake Total 670 ml 1140 ml Balance 670 ml 1140 ml Exam Patient is primarily Croatian/Norwegian-speaking. Constitutional: alert, frail, other (Cachectic) Respiratory: clear to auscultation, normal air movement Cardiovascular: nl pulses, other (Episodes of NSVT noted overnight), regular rate and rhythm Gastrointestinal: non-tender, soft Musculoskeletal: other (Right lower extremity cast in place) Extremities: normal pulses Neurological: HYDROPRESS OPERATOR II-XII intact, lethargic, other (Generalized weakness,) Results Result Diagram: 06/30/17 0648 06/30/17 0642 Results 24 hrs Laboratory Tests Test 06/29/17 11:51 06/29/17 16:33 06/29/17 18:58 06/29/17 21:54 Creatine Kinase < 20 L 28 Creatine Kinase Index 17.2 Creatinine Kinase MB (Mass) 4.09 H 4.82 H Troponin I 0.155 *H 0.173 *H Prealbumin 8.8 L Bedside Glucose 93 85 Test 06/30/17 06:42 06/30/17 06:48 06/30/17 09:26 Sodium Level 138 Potassium Level 4.6 Chloride Level 108 Carbon Dioxide Level 24 Anion Gap 11 Blood Urea Nitrogen 35 H Creatinine 4.41 H Glucose Level 75 Calcium Level 10.7 H White Blood Count 5.5 Red Blood Count 3.87 L Hemoglobin 12.5 Hematocrit 42.3 Mean Corpuscular Volume 109.3 H Mean Corpuscular Hemoglobin 32.3 Mean Corpuscular Hemoglobin Concent 29.6 L Red Cell Distribution Width 15.2 H Platelet Count 122 L Mean Platelet Volume 11.2 H Neutrophils % 77.0 Lymphocytes % 12.5 L Monocytes % 6.5 Eosinophils % 3.1 Basophils % 0.7 Nucleated Red Blood Cells % 0.0 Neutrophils # 4.2 Lymphocytes # 0.7 L Monocytes # 0.4 Eosinophils # 0.2 Basophils # 0.0 Nucleated Red Blood Cells # 0.0 Phosphorus Level 7.0 H Magnesium Level 2.0 Creatine Kinase < 20 L Creatine Kinase Index Creatinine Kinase MB (Mass) 4.67 H Troponin I 0.159 *H Medications Medications Current Medications Aspirin (Halfprin) 81 mg DAILY PO ; Start 06/29/17 at 09:00 Atorvastatin Calcium (Lipitor) 40 mg QHS PO ; Start 06/28/17 at 21:00 Phenol (Cepastat Lozenge) 1 lozenge Q4 PRN PO COUGH; Start 06/28/17 at 20:00 Carvedilol (Coreg) 12.5 mg BID PO ; Start 06/28/17 at 21:00 Clonidine HCl (Catapres-Tts 3 Patch) 1 patch Q7D TRANSDERM Last administered on 06/29/17 06:40; Admin Dose 1 PATCH; Start 06/28/17 at 20:00 Docusate Sodium (Colace) 100 mg BID PO ; Start 06/28/17 at 21:00 Folic Acid (Folic Acid) 1 mg DAILY PO ; Start 06/29/17 at 09:00 Hydralazine HCl (Apresoline) 100 mg TID PO ; Start 06/28/17 at 21:00 Hydroxyzine HCl (Atarax) 25 mg Q6H PRN PO ITCHING; Start 06/28/17 at 20:00 Multivit/Ca Carb/ B Cmplx/FA/Prenat ([place]) 1 tab DAILY PO ; Start 06/28/17 at 20:00 Nifedipine (Procardia Xl) 60 mg BID PO ; Start 06/28/17 at 21:00 Senna (Senokot) 1 tab DAILY PO ; Start 06/29/17 at 09:00 Ondansetron HCl (Zofran Inj) 4 mg Q6H PRN IV NAUSEA AND/OR VOMITING Last administered on 06/29/17t 16:30; Admin Dose 4 MG; Start 06/28/17 at 20:00 Nitroglycerin (Nitroglycerin (Sl Tab) 0.4 Mg) 1 tab Q5M PRN SL CHEST PAIN; Start 06/28/17 at 20:00 Acetaminophen (Tylenol Tab) 650 mg Q6H PRN PO PAIN LEVEL 1-3 OR FEVER; Start at 20:00 Acetaminophen/ Hydrocodone Bitart ([place] (5/325)) 1 tab Q6H PRN PO PAIN LEVEL 4 -6; Start 06/28/17 at 20:00 Morphine Sulfate (morphine) 2 mg Q4H PRN IV PAIN LEVEL 7-10 Last administered on 06/29/17 16:29; Admin Dose 2 MG; Start 06/28/17 at 20:00 Docusate Sodium (Colace) 100 mg Q12H PRN PO CONSTIPATION; Start 06/28/17 at 20: 00 Magnesium Hydroxide (Milk Of Mag) 30 ml DAILY PRN PO CONSTIPATION; Start at 20:00 Bisacodyl (Dulcolax Supp) 10 mg DAILY PRN [place] CONSTIPATION; Start 06/28/17 at 20 :00 Famotidine 10 mg 10 mg Q48H PO ; Start 06/28/17 at 21:00 Sodium Chloride (NS) 1,000 ml @ 0 mls/hr Q0M PRN IV TO KEEP SBP ABOVE 90; Start 06/28/17 at 20:01 Hydralazine HCl (Apresoline) 10 mg Q4H PRN IV ELEVATED BLOOD PRESSURE Last administered on 06/30/17 04:25; Admin Dose 10 MG; Start 06/29/17 at 09:30 Heparin Sodium (Porcine) 5000 unit 5,000 unit BID SC Last administered on 08:52; Admin Dose 5,000 UNIT; Start 06/29/17 at 12:00 Dextrose/Sodium Chloride (D5-NS) 1,000 ml @ 70 mls/hr [id number] IV Last administered on 06/30/17 04:25; Admin Dose 70 MLS/HR; Start 06/29/17 at 11:30 Diagnostic Test (Pha) (Accu-Chek) 1 ea Q6 XX ; Start 06/30/17 at 12:00 Nitroglycerin (Nitroglycerin 0.3 Mg/Hr) 1 patch DAILY TRANSDERM ; Start at 10:30 Procedures Procedures PROCEDURE: CT Abdomen and Pelvis without contrast. CLINICAL INDICATION: Rule out mass or obstruction, abdominal pain TECHNIQUE: CT scan of the abdomen and pelvis without contrast was performed on a multidetector high-resolution CT scanner. The patient was scanned without intravenous contrast. Coronal and sagittal reformatted images were obtained from the axial source images. Images were reviewed on a high-resolution PACS workstation. The total exam CTDI equals 9.42 mGy and the total exam DLP equals 431.35 mGy-cm. The patient is arms are by her side with resultant beam- hardening artifact projected over the abdomen. One or more the following dose reduction techniques were utilized: Automated exposure control, adjustment of the mA and / or kV according to patient's size, or use of iterative reconstruction technique. COMPARISON: 01/12/2016 FINDINGS: Small bilateral pleural effusions left larger than right with bilateral lower lobe partial atelectasis again seen. Mitral annulus region calcification. Coronary artery calcification. Calcification in thoracoabdominal aorta. Calcification in region of aortic valve. Diffuse subcutaneous edema increased compared to previous study. Cardiomegaly again seen. Mild pulmonary vascular congestion again apparent. Small calcified granulomas again seen in liver. Multiple rounded fluid density structures in liver likely cysts again seen. Cholecystectomy. No abnormality is seen in the spleen. The stomach is not distended. No abnormality seen in the pancreas. Atrophic kidneys with multiple bilateral cysts again seen. Small calcifications in kidneys could be vascular calcifications again seen. Calcification in all branches of the abdominal aorta and iliac and femoral arteries No abdominal aortic aneurysm is seen. No biliary dilatation is seen. Small amount of ascites is again seen. Moderately large amount of stool in the rectum again seen. Vascular calcifications in uterus. Beam-hardening artifact arising from right hip prosthesis projected over lower pelvis limiting evaluation. Old fracture left inferior pubic ramus again seen. Mesenteric edema increased compared to previous study. Vascular calcifications in uterus. The bladder is not well seen due to artifact. Diverticula in sigmoid colon. Nonspecific mild diffuse wall thickening in proximal to mid transverse colon and ascending colon not seen on the previous study. No dilated small bowel loops are seen. No definite enlarged lymph nodes are seen in the abdomen and pelvis. No pneumoperitoneum is seen. Diffuse osteopenia. Mild to moderate osteoarthrosis at left hip. Degenerative changes at sacroiliac joints. Degenerative changes in thoracolumbar spine. Schmorl's nodes in thoracolumbar spine. IMPRESSION: Nonspecific mild diffuse wall thickening in ascending colon and proximal to mid transverse colon appearing since previous study. Differential includes diagnosis congestion, hypoalbuminemia and infectious/inflammatory colitis and ischemic colitis. Consistent with anasarca increased compared to previous study. Small amount of ascites not significantly changed compared to previous study. Mesenteric edema increased compared to previous study. Small bilateral pleural effusions left larger than right with bilateral lower lobe partial atelectasis not significantly changed. Diffuse subcutaneous edema increased compared to previous study. Atherosclerosis. Cardiomegaly again seen. Mild pulmonary vascular congestion again apparent. Atrophic kidneys with multiple bilateral cysts again seen. Moderately large amount of stool in the rectum again seen. Please see above. RPTAT: HJES .Andrzej Montes MD, MD Date Time Electronically viewed and signed by .Andrzej Montes MD, MD on 06/30/2017 03:02 KEON LOVE Jun 30, 2017 11:10
[2017-06-30] MEDS: MUPIROCIN 2% 22 GM OINT TOP SCH ×2 (12:16→20:13)
[2017-06-30] MEDS: PIPER-TAZO 2.25 GM (PMX) 50 ML IVPB SCH ×2 (13:13→21:34)
--- NOTE | 2017-06-30 17:59 | CONS ---
Date/Time of Note Date/Time of Note DATE: 06/30/17 TIME: 17:58 Assessment/Plan Assessment/Plan Chief Complaint/Hosp Course IMPRESSION: 1. Encephalopathy. 2. hypertension. 3. Positive troponin. 4. [id number] myocardial infarction. 5. Malnutrition. 6. Hypoalbuminemia. 7. Protein-calorie malnutrition. 8. End-stage renal disease. 9. Right tibial fracture, has a cast on. 10. Hypertension. 11. SEPSIS PLAN ANTIBIOTIC HD AM CONSIDER GI CONSULT Problems: Consultation Date/Type/Reason Admit Date/Time Jun 28, 2017 at 17:52 Type of Consultation: renal 24 HR Interval Summary Constitutional: other (LETHARGIC+) Exam/Review of Systems Vital Signs Vitals Vital Signs Date Time Temp Pulse Resp B/P Pulse Ox O2 Delivery O2 Flow Rate FiO2 06/30/17 16:01 67 06/30/17 15:46 98.0 18 144/74 98 06/30/17 08:00 Nasal Cannula 2.0 Intake and Output 06/29/17 06/29/17 06/30/17 15:00 23:00 07:00 Intake Total 670 ml 1140 ml Balance 670 ml 1140 ml Exam Neck: supple Respiratory: clear to auscultation Cardiovascular: regular rate and rhythm Gastrointestinal: soft Musculoskeletal: nl extremities to inspection Extremities: normal pulses Results Result Diagram: 06/30/17 0648 06/30/17 0642 Results 24 hrs Laboratory Tests Test 06/29/17 18:58 06/29/17 21:54 06/30/17 06:42 06/30/17 06:48 Creatine Kinase 28 Creatine Kinase Index 17.2 Creatinine Kinase MB (Mass) 4.82 H Troponin I 0.173 *H Bedside Glucose 85 Sodium Level 138 Potassium Level 4.6 Chloride Level 108 Carbon Dioxide Level 24 Anion Gap 11 Blood Urea Nitrogen 35 H Creatinine 4.41 H Glucose Level 75 Calcium Level 10.7 H White Blood Count 5.5 Red Blood Count 3.87 L Hemoglobin 12.5 Hematocrit 42.3 Mean Corpuscular Volume 109.3 H Mean Corpuscular Hemoglobin 32.3 Mean Corpuscular Hemoglobin Concent 29.6 L Red Cell Distribution Width 15.2 H Platelet Count 122 L Mean Platelet Volume 11.2 H Neutrophils % 77.0 Lymphocytes % 12.5 L Monocytes % 6.5 Eosinophils % 3.1 Basophils % 0.7 Nucleated Red Blood Cells % 0.0 Neutrophils # 4.2 Lymphocytes # 0.7 L Monocytes # 0.4 Eosinophils # 0.2 Basophils # 0.0 Nucleated Red Blood Cells # 0.0 Phosphorus Level 7.0 H Magnesium Level 2.0 Test 06/30/17 09:26 06/30/17 11:52 06/30/17 17:15 Creatine Kinase < 20 L Creatine Kinase Index Creatinine Kinase MB (Mass) 4.67 H Troponin I 0.159 *H Bedside Glucose 81 83 Medications Medications Current Medications Aspirin (Halfprin) 81 mg DAILY PO ; Start 06/29/17 at 09:00 Atorvastatin Calcium (Lipitor) 40 mg QHS PO ; Start 06/28/17 at 21:00 Phenol (Cepastat Lozenge) 1 lozenge Q4 PRN PO COUGH; Start 06/28/17 at 20:00 Carvedilol (Coreg) 12.5 mg BID PO ; Start 06/28/17 at 21:00 Clonidine HCl (Catapres-Tts 3 Patch) 1 patch Q7D TRANSDERM Last administered on 06/29/17 06:40; Admin Dose 1 PATCH; Start 06/28/17 at 20:00 Docusate Sodium (Colace) 100 mg BID PO ; Start 06/28/17 at 21:00 Folic Acid (Folic Acid) 1 mg DAILY PO ; Start 06/29/17 at 09:00 Hydralazine HCl (Apresoline) 100 mg TID PO ; Start 06/28/17 at 21:00 Hydroxyzine HCl (Atarax) 25 mg Q6H PRN PO ITCHING; Start 06/28/17 at 20:00 Multivit/Ca Carb/ B Cmplx/FA/Prenat (Sofy-Cooper) 1 tab DAILY PO ; Start 06/28/17 at 20:00 Nifedipine (Procardia Xl) 60 mg BID PO ; Start 06/28/17 at 21:00 Senna (Senokot) 1 tab DAILY PO ; Start 06/29/17 at 09:00 Ondansetron HCl (Zofran Inj) 4 mg Q6H PRN IV NAUSEA AND/OR VOMITING Last administered on 06/29/17 16:30; Admin Dose 4 MG; Start 06/28/17 at 20:00 Nitroglycerin (Nitroglycerin (Sl Tab) 0.4 Mg) 1 tab Q5M PRN SL CHEST PAIN; Start 06/28/17 at 20:00 Acetaminophen (Tylenol Tab) 650 mg Q6H PRN PO PAIN LEVEL 1-3 OR FEVER; Start at 20:00 Acetaminophen/ Hydrocodone Bitart ([place] (5/325)) 1 tab Q6H PRN PO PAIN LEVEL 4 -6; Start 06/28/17 at 20:00 Morphine Sulfate (morphine) 2 mg Q4H PRN IV PAIN LEVEL 7-10 Last administered on 06/29/17 16:29; Admin Dose 2 MG; Start 06/28/17 at 20:00 Docusate Sodium (Colace) 100 mg Q12H PRN PO CONSTIPATION; Start 06/28/17 at 20: 00 Magnesium Hydroxide (Milk Of Mag) 30 ml DAILY PRN PO CONSTIPATION; Start at 20:00 Bisacodyl (Dulcolax Supp) 10 mg DAILY PRN [place] CONSTIPATION; Start 06/28/17 at 20 :00 Famotidine 10 mg 10 mg Q48H PO ; Start 06/28/17 at 21:00 Sodium Chloride (NS) 1,000 ml @ 0 mls/hr Q0M PRN IV TO KEEP SBP ABOVE 90; Start 06/28/17 at 20:01 Hydralazine HCl (Apresoline) 10 mg Q4H PRN IV ELEVATED BLOOD PRESSURE Last administered on 06/30/17 04:25; Admin Dose 10 MG; Start 06/29/17 at 09:30 Heparin Sodium (Porcine) 5000 unit 5,000 unit BID SC Last administered on 08:52; Admin Dose 5,000 UNIT; Start 06/29/17 at 12:00 Dextrose/Sodium Chloride (D5-NS) 1,000 ml @ 70 mls/hr [id number] IV Last administered on 06/30/17 04:25; Admin Dose 70 MLS/HR; Start 06/29/17 at 11:30 Diagnostic Test (Pha) (Accu-Chek) 1 ea Q6 XX Last administered on 06/30/17 12: 16; Admin Dose 1 EA; Start 06/30/17 at 12:00 Nitroglycerin 1 patch 1 patch DAILY TRANSDERM Last administered on 06/30/17 11 :21; Admin Dose 1 PATCH; Start 06/30/17 at 10:30 Piperacillin Sod/ Tazobactam Sod (Zosyn 2.25gm/ 50ml (Pmx)) 50 ml @ 200 mls/hr Q8 IVPB Last administered on 06/30/17 13:13; Admin Dose 200 MLS/HR; Start at 14:00 Mupirocin (Bactroban) 1 applic BID TOP Last administered on 06/30/17 12:16; Admin Dose 1 APPLIC; Start 06/30/17 at 12:00 Miscellaneous Information (*Rx Drug Level Order Reminder*) VANCO RANDOM W/ AM LABS... ONCE ONCE XX ; Start 07/01/17 at 05:00; Stop 07/01/17 at 05:01 GLENNY RACHEL MD Jun 30, 2017 17:59
[2017-06-30] MEDS: ATORVASTATIN 40 MG TAB PO SCH (20:31)
[2017-06-30] MEDS: FAMOTIDINE 20 MG TAB PO SCH (20:32)
[2017-07-01] VITALS (14 sets, daily range): BP systolic 132–189; BP diastolic 62–89; PULSE 53–63; RESP 16–18
[2017-07-01] MEDS: hydrALAzine 20 MG INJ IV PRN ×4 (00:21→18:08)
[2017-07-01] MEDS: PIPER-TAZO 2.25 GM (PMX) 50 ML IVPB SCH ×3 (05:39→21:36)
[2017-07-01] MEDS: ACCU-CHEK XX SCH ×7 (05:42→21:36)
[2017-07-01 05:55] LABS: ABNORMAL IP MESSAGE 1; BASOPHILS % 0.8 % (0.0-2.0); EOSINOPHILS # 0.1 10^3/ul (0.0-0.5); EOSINOPHILS % 3.5 % (0.0-7.0); HEMATOCRIT 36.7 % (37.0-47.0); HEMOGLOBIN 10.8 g/dl (12.0-16.0); LYMPHOCYTES # 0.6 10^3/ul (0.8-2.9); LYMPHOCYTES % 15.2 % (15.0-51.0); MEAN CORPUSCULAR HEMOGLOBIN 31.7 pg (29.0-33.0); MEAN CORPUSCULAR HGB CONC 29.4 g/dl (32.0-37.0); MEAN CORPUSCULAR VOLUME 107.6 fl (82.0-101.0); MEAN PLATELET VOLUME 11.4 fl (7.4-10.4); MONOCYTE # 0.3 10^3/ul (0.3-0.9); MONOCYTES % 9.2 % (0.0-11.0); NEUTROPHIL # 2.6 10^3/ul (1.6-7.5); PLATELET COUNT 84 10^3/UL (140-415); RED BLOOD COUNT 3.41 10^6/ul (4.20-5.40); RED CELL DISTRIBUTION WIDTH 14.8 % (11.5-14.5); WHITE BLOOD COUNT 3.7 10^3/ul (4.8-10.8)
[2017-07-01] MEDS: DEXTROSE 5%-0.9% NACL 1,000 ML IV SCH ×2 (06:24→10:13)
[2017-07-01 06:26] LABS: MAGNESIUM 1.8 mg/dl (1.7-2.5); PHOSPHORUS 5.7 mg/dl (2.5-4.9)
[2017-07-01 06:28] LABS: CALCIUM 10.3 mg/dl (8.4-10.2); CREATININE 3.66 mg/dl (0.44-1.00); POSITIVE DIFF @See below; POTASSIUM 3.8 mmol/L (3.5-5.1)
[2017-07-01 06:32] LABS: CK-MB 3.2 ng/ml (0.0-2.4)
[2017-07-01 06:34] LABS: TROPONIN-I 0.168 ng/ml (0.00-0.12)
[2017-07-01] MEDS: PANTOPRAZOLE (EC) 40 MG TAB PO SCH (07:25)
[2017-07-01] MEDS: SEVELAMER CARBONATE 0.8 GM PKT PO SCH ×3 (07:55→17:55)
[2017-07-01] MEDS: DOCUSATE SODIUM 100 MG CAP PO SCH ×2 (08:29→21:31)
[2017-07-01] MEDS: FOLIC ACID 1 MG TAB PO SCH (08:29)
[2017-07-01] MEDS: MULTIVIT/CA CARB/B CMPLX/FA TAB PO SCH (08:30)
[2017-07-01] MEDS: NIFEdipine (XL) 60 MG TAB PO SCH ×2 (08:30→21:00)
[2017-07-01] MEDS: SENNA TAB PO SCH (08:30)
[2017-07-01] MEDS: ASPIRIN (EC) 81 MG TAB PO SCH (08:30)
[2017-07-01] MEDS ORDERED: VANCOMYCIN 750 MG in SOD CHLORIDE 0.9% 150 ML IVPB ONE (10:00)
--- NOTE | 2017-07-01 10:02 | PN ---
Date/Time of Note Date/Time of Note DATE: 07/01/17 TIME: 09:47 Assessment/Plan VTE Prophylaxis VTE Prophylaxis Intervention: heparin Lines/Catheters IV Catheter Type (from [facility]): Peripheral IV Urinary Cath still in place: No Assessment/Plan Assessment/Plan 86-year-old female with: 1. Severe encephalopathy, patient was almost comatose on presentation with systolic blood pressures in the 200s. Mental status keeps improving, she is much more awake today, primarily Salvadorean speaking. CAT scan of the head followed by MRI of the brain are both negative for acute injury. Ammonia within normal Controlling blood pressure with IV medications and transdermal patches. Nitro- Dur added clonidine patch, once able to take p.o. we will continue oral medications if still needed, next dialysis tomorrow. Speech reevaluation pending this morning, and hopefully patient can start taking p.o. Glucose stable on D5 drip until able to take p.o. Continue to monitor neurologically. 2. Severe protein malnutrition, weight loss decreased p.o. intake, episodes of vomiting 1 day of admission CAT scan of the abdomen and pelvis with findings possibly consistent with mild colitis, continue Zosyn. She is DNR, according to the daughter they do not wish to put a feeding tube. 3. Malignant hypertension, episode of hypertensive urgency yesterday. Blood pressure better controlled this morning during dialysis, she already has a clonidine patch on board, will add Nitro-Dur patch 0.3, likely to be titrated to 0.6 within the next 24 to 48 hrs. 4. End-stage renal disease, on hemodialysis now per schedule 5. Right tibial fracture, subacute to chronic, cast in place. Follow-up with orthopedic surgery as an outpatient. 6. Enterococcus positive blood culture 2, ampicillin sensitive, repeat blood cultures NGTD Continue Zosyn for now, DC vancomycin. 7. Mild troponin elevation, in setting of hemodialysis patient, hypertensive emergency on admission. Patient was seen at [facility] a few days ago where she was reported to also have slightly elevated troponin at 0.068 which was deemed to be related to her renal disease. Apparently she did have an echocardiogram but there is no dictation or reading as far as we know. Troponin is slightly elevated here up and remains around 0.16.. Patient is fairly in some asymptomatic. The echocardiogram ordered, once patient able to take p.o. should be on aspirin , cardiology evaluation requested but likely conservative management. Prophylaxis: Heparin subcu for DVT prophylaxis, Pepcid for GI prophylaxis Disposition: Dialysis per nephrology, [place] for enterococcus bacteremia and possible mild colitis on CAT scan, reevaluation by speech therapy today hopefully can start taking p.o. Needs blood pressure control still systolic in the 180s times. Subjective 24 Hr Interval Summary Free Text/Dictation Patient much more awake, she is communicative, she speaks Salvadorean. She indicates that she is hungry. Speech therapy evaluation pending. Pressure to be better control therefore Nitro-Dur patch is being increased. Hemodialysis tomorrow Tuesday. Fully discharge planning this weekend back to assisted facility patient tolerating p.o. and blood pressure better. Findings remained slightly high likely secondary to hemodialysis state and the recent hypertensive emergency, cardiology is consulted likely conservative management, patient did have an echocardiogram at [facility] I have tried to get a record but there is no dictations therefore we will repeat echocardiogram here. Exam/Review of Systems Vital Signs Vitals Vital Signs Date Time Temp Pulse Resp B/P Pulse Ox O2 Delivery O2 Flow Rate FiO2 07/01/17 08:00 53 07/01/17 07:14 98.0 18 171/80 96 07/01/17 04:06 2.0 06/30/17 19:56 Nasal Cannula Intake and Output 06/30/17 06/30/17 07/01/17 15:00 23:00 07:00 Intake Total 500 ml 50 ml 750 ml Output Total 2500 ml Balance -2000 ml 50 ml 750 ml Exam Constitutional: alert, frail, oriented (x2), other Respiratory: clear to auscultation, normal air movement Cardiovascular: nl pulses, regular rate and rhythm Gastrointestinal: non-tender, soft Musculoskeletal: other (Lower extremity cast in place, patient nonweightbearing right lower extremity.) Extremities: normal pulses, other (Trace edema) Neurological: G[employer] WHEEL [employer] POL[employer]ER II-XII intact, lethargic (much improved ), nl speech Results Result Diagram: 07/01/1752207/01/17522 Results 24 hrs Laboratory Tests Test 06/30/17 11:52 06/30/17 17:15 06/30/17 20:10 06/30/17 20:29 Bedside Glucose 81 83 80 Carcinoembryonic Antigen 2.2 Test 07/01/17 00:25 07/01/17 05:23 07/01/17 05:41 Bedside Glucose 77 76 White Blood Count 3.7 #L Red Blood Count 3.41 L Hemoglobin 10.8 L Hematocrit 36.7 L Mean Corpuscular Volume 107.6 H Mean Corpuscular Hemoglobin 31.7 Mean Corpuscular Hemoglobin Concent 29.4 L Red Cell Distribution Width 14.8 H Platelet Count 84 #L Mean Platelet Volume 11.4 H Neutrophils % 71.0 Lymphocytes % 15.2 Monocytes % 9.2 Eosinophils % 3.5 Basophils % 0.8 Nucleated Red Blood Cells % 0.0 Neutrophils # 2.6 Lymphocytes # 0.6 L Monocytes # 0.3 Eosinophils # 0.1 Basophils # 0.0 Nucleated Red Blood Cells # 0.0 Sodium Level 138 Potassium Level 3.8 Chloride Level 106 Carbon Dioxide Level 27 Anion Gap 9 Blood Urea Nitrogen 23 #H Creatinine 3.66 H Glucose Level 86 Calcium Level 10.3 H Phosphorus Level 5.7 H Magnesium Level 1.8 Creatine Kinase 39 Creatine Kinase Index 8.2 Creatinine Kinase MB (Mass) 3.20 H Troponin I 0.168 *H Random Vancomycin Level 10.9 Medications Medications Current Medications Aspirin (Halfprin) 81 mg DAILY PO ; Start 06/29/17 at 09:00 Atorvastatin Calcium (Lipitor) 40 mg QHS PO ; Start 06/28/17 at 21:00 Phenol (Cepastat Lozenge) 1 lozenge Q4 PRN PO COUGH; Start 06/28/17 at 20:00 Carvedilol (Coreg) 12.5 mg BID PO ; Start 06/28/17 at 21:00 Clonidine HCl (Catapres-Tts 3 Patch) 1 patch Q7D TRANSDERM Last administered on 06/29/17t 06:40; Admin Dose 1 PATCH; Start 06/28/17 at 20:00 Docusate Sodium (Colace) 100 mg BID PO ; Start 06/28/17 at 21:00 Folic Acid (Folic Acid) 1 mg DAILY PO ; Start 06/29/17 at 09:00 Hydralazine HCl (Apresoline) 100 mg TID PO ; Start 06/28/17 at 21:00 Hydroxyzine HCl (Atarax) 25 mg Q6H PRN PO ITCHING; Start 06/28/17 at 20:00 Multivit/Ca Carb/ B Cmplx/FA/Prenat (Sofy-Cooper) 1 tab DAILY PO ; Start 06/28/17 at 20:00 Nifedipine (Procardia Xl) 60 mg BID PO ; Start 06/28/17 at 21:00 Senna (Senokot) 1 tab DAILY PO ; Start 06/29/17 at 09:00 Ondansetron HCl (Zofran Inj) 4 mg Q6H PRN IV NAUSEA AND/OR VOMITING Last administered on 06/29/17 16:30; Admin Dose 4 MG; Start 06/28/17 at 20:00 Nitroglycerin (Nitroglycerin (Sl Tab) 0.4 Mg) 1 tab Q5M PRN SL CHEST PAIN; Start 06/28/17 at 20:00 Acetaminophen (Tylenol Tab) 650 mg Q6H PRN PO PAIN LEVEL 1-3 OR FEVER; Start at 20:00 Acetaminophen/ Hydrocodone Bitart ([place] (5/325)) 1 tab Q6H PRN PO PAIN LEVEL 4 -6; Start 06/28/17 at 20:00 Morphine Sulfate (morphine) 2 mg Q4H PRN IV PAIN LEVEL 7-10 Last administered on 06/29/17 16:29; Admin Dose 2 MG; Start 06/28/17 at 20:00 Docusate Sodium (Colace) 100 mg Q12H PRN PO CONSTIPATION; Start 06/28/17 at 20: 00 Magnesium Hydroxide (Milk Of Mag) 30 ml DAILY PRN PO CONSTIPATION; Start at 20:00 Bisacodyl (Dulcolax Supp) 10 mg DAILY PRN [place] CONSTIPATION; Start 06/28/17 at 20 :00 Famotidine 10 mg 10 mg Q48H PO ; Start 06/28/17 at 21:00 Sodium Chloride (NS) 1,000 ml @ 0 mls/hr Q0M PRN IV TO KEEP SBP ABOVE 90; Start 06/28/17 at 20:01 Hydralazine HCl (Apresoline) 10 mg Q4H PRN IV ELEVATED BLOOD PRESSURE Last administered on 07/01/17 04:35; Admin Dose 10 MG; Start 06/29/17 at 09:30 Heparin Sodium (Porcine) 5000 unit 5,000 unit BID SC Last administered on 20:19; Admin Dose 5,000 UNIT; Start 06/29/17 at 12:00 Dextrose/Sodium Chloride (D5-NS) 1,000 ml @ 70 mls/hr [id number] IV Last administered on 06/30/17 04:25; Admin Dose 70 MLS/HR; Start 06/29/17 at 11:30 Diagnostic Test (Pha) 1 ea 1 ea Q6 XX Last administered on 06/30/17 12:16; Admin Dose 1 EA; Start 06/30/17 at 12:00 Piperacillin Sod/ Tazobactam Sod (Zosyn 2.25gm/ 50ml (Pmx)) 50 ml @ 200 mls/hr Q8 IVPB Last administered on 07/01/17 05:39; Admin Dose 200 MLS/HR; Start at 14:00 Mupirocin 1 applic 1 applic BID TOP Last administered on 06/30/17 20:13; Admin Dose 1 APPLIC; Start 06/30/17 at 12:00 Vancomycin HCl/ Sodium Chloride (Vancocin/NS) 150 ml @ 75 mls/hr ONCE ONCE IVPB ; Start 07/01/17 at 10:00; Stop 07/01/17 at 11:59 Nitroglycerin (Nitroglycerin 0.6 Mg/Hr) 1 patch DAILY TRANSDERM ; Start at 11:00 KEON LOVE Jul 01, 2017 10:01
[2017-07-01] MEDS: HEPARIN 5,000 UNIT/0.5 ML VIAL SC SCH ×2 (10:08→21:57)
[2017-07-01] MEDS: MUPIROCIN 2% 22 GM OINT TOP SCH ×2 (10:10→21:32)
[2017-07-01] MEDS ORDERED: NITROGLYCERIN 0.6 MG/HR PATCH TRANSDERM SCH (11:00)
[2017-07-01] MEDS ORDERED: NITROGLYCERIN 0.3 MG/HR PATCH TRANSDERM SCH (11:00)
--- NOTE | 2017-07-01 12:24 | RADRPT ---
Echocardiogram Report Patient Name: PAVAN DANG Gender: Female Date: 1930 Study Date: 01-Jul-2017 Sanitation Superintendent: Bren [facility] Location: [facility] Ref. Physician: GREGG LOVE Quality: Good Procedures: Transthoracic echocardiogram with complete 2D, M-Mode, and doppler examination. Indications: Elevated trop. 2D/M Mode Doppler Measurement Value Normal Ranges Measurement Value Normal Ranges LVIDd 2D 3.3 3.5 - 5.6 cm AV Peak Ed 1.6 m/sec LVIDs 2D 1.6 2.1 - 4.1 cm AV Peak PG 11.0 mmHg FS 2D 52.6 % LVOT Peak Ed 1.1 m/sec LVPWd 2D 2.1 0.6 - 1.1 cm LVOT Peak PG 5.0 mmHg IVSd 2D 2.1 0.6 - 1.1 cm MV E Peak Ed 0.9 m/sec IVS/LVPW 2D 1.0 MV A Peak Ed 1.0 m/sec AoR Diam 2D 2.2 2.0 - 3.7 cm MV E/A 0.9 LA/Ao 2D 2 0 - 1 MV Decel Time 356 msec EDV 2D 36.9 cm3 MV E/A 0.9 ESV 2D 3.9 cm3 TR Peak Ed 1.7 m/sec LA Dimen 2D 4.1 2.3 - 4.0 cm TR Peak PG 12.0 mmHg RVSP 27.0 mmHg Findings Left Ventricle: Normal left ventricular systolic function. Normal left ventricular cavity size. Severe concentric left ventricular hypertrophy. Ejection fraction is visually estimated at 60 %. Tissue Doppler/Mitral Doppler indices are consistent with impaired relaxation (Stage I diastolic dysfunction). Right Ventricle: Normal right ventricular size. Normal right ventricular systolic function. Left Atrium: There is mild enlargement of left atrium. Right Atrium: There is mild enlargement of right atrium. Mitral Valve: Mitral valve leaflets appear moderately thickened. Moderate mitral annular calcification. Mild mitral valve regurgitation. Aortic Valve: No significant aortic stenosis or insufficiency. Aortic cusps appear moderately calcified. Tricuspid Valve: Normal appearance and function of the tricuspid valve with trace physiologic regurgitation. Estimated peak PA systolic pressure 27 mmHg. Pulmonic Valve: Normal pulmonic valve appearance. There is trace pulmonic regurgitation. Pericardium: Normal pericardium with no significant pericardial effusion. Left pleural effusion seen. Aorta: Normal aortic root. IVC: Dilated IVC with respiratory collapse consistent with elevated right atrial pressure. Dilated IVC without respiratory collapse consistent with elevated right atrial pressure. Conclusions Normal left ventricular systolic function. Normal left ventricular cavity size. Severe concentric left ventricular hypertrophy. Ejection fraction is visually estimated at 60 %. Tissue Doppler/Mitral Doppler indices are consistent with impaired relaxation (Stage I diastolic dysfunction). Normal right ventricular size. Normal right ventricular systolic function. There is mild enlargement of left atrium. There is mild enlargement of right atrium. Mild mitral valve regurgitation. No significant valvular stenosis or regurgitation seen of remaining visualized valves. Normal pericardium with no significant pericardial effusion. Left pleural effusion seen. Electronically Signed By: Moises Miller 01-Jul-2017 12:23:24 -0700 Patient Name: PAVAN DANG Study Date: 01-Jul-2017 [id number]
--- NOTE | 2017-07-01 12:50 | CONS ---
Date/Time of Note Date/Time of Note DATE: 07/01/17 TIME: 12:42 Assessment/Plan Assessment/Plan Additional Assessment/Plan Hypertensive emergency with elevated troponin Acute decompensated diastolic congestive heart failure End-stage renal disease on hemodialysis with volume overload History of hypertension Severe left ventricular hypertrophy with preserved ejection fraction Encephalopathy Medical uncomplaince -In discussion with our esteemed hospitalist Dr Taylor, patient has been noncompliant with multiple dialysis sessions and p.o. medications. Patient has been on clonidine patch for this reason. Mental status initially was nearly comatose but after dialysis sessions and control of blood pressure, patient currently improving. She is n.p.o. and unable to take p.o. medications. Nitroglycerin patch was increased today, she is still on clonidine patch. If clonidine patch is not new, I would continue. If clonidine patch is new, this could also be a contributing etiology to her encephalopathy. Troponins are minimally elevated and trending down, this is likely secondary to hypertension emergency as well as decreased renal clearance. Given patient remains n.p.o., would continue nitroglycerin and clonidine patch, IV hydralazine as needed available. Plan of care discussed with our esteemed hospitalist Dr Taylor. Consultation Date/Type/Reason Admit Date/Time Jun 28, 2017 at 17:52 Type of Consultation: cv Reason for Consultation Hypertension and elevated troponin Hx of Present Illness This is an 86-year-old female [facility] presented with encephalopathy, uncontrolled hypertension. Patient also found to have elevated troponins. Patient has missed multiple dialysis sessions and has been noncompliant with p.o. medications. Cardiology consultation was requested Steri to uncontrolled blood pressure as well as elevated troponin. Discussion with our esteemed hospitalist Dr Taylor, patient has not been taking p.o. medications and is thus on a clonidine patch. It is unclear when this was started. Compared to her admission to currently, her mental status has improved significantly. Unable to be performed at the current time given patient's mental status Constitutional: other (LETHARGIC+) Past Medical History Medical History: congestive heart failure, high cholesterol, hypertension, renal disease Past Surgical History Dialysis catheter Family History Significant Family History: no pertinent family hx Social History Alcohol Use: none Smoking Status: Never smoker Drug Use: none Other Social History From [facility] facility Exam/Review of Systems Vital Signs Vitals Vital Signs Date Time Temp Pulse Resp B/P Pulse Ox O2 Delivery O2 Flow Rate FiO2 07/01/17 12:00 57 07/01/17 11:09 98.1 17 176/85 96 07/01/17 09:56 2.0 07/01/17 09:10 Nasal Cannula Intake and Output 06/30/17 06/30/17 07/01/17 15:00 23:00 07:00 Intake Total 500 ml 50 ml 750 ml Output Total 2500 ml Balance -2000 ml 50 ml 750 ml Exam Sleeping but arousable, intermittently following commands, no apparent distress , undergoing echocardiogram Constitutional: frail Head: normocephalic Respiratory: other (Coarse breath sounds bilaterally, no wheezing) Cardiovascular: other (S1-S2 heard), regular rate and rhythm, systolic murmur Gastrointestinal: bowel sounds, non-tender, other (No guarding), soft Extremities: other (No edema, cast on right leg) Results Result Diagram: 07/01/17 0523 07/01/17 0523 Results 24 hrs Laboratory Tests Test 06/30/17 17:15 06/30/17 20:10 06/30/17 20:29 07/01/17 00:25 Bedside Glucose 83 80 77 Carcinoembryonic Antigen 2.2 Test 07/01/17 05:23 07/01/17 05:41 07/01/17 12:18 White Blood Count 3.7 #L Red Blood Count 3.41 L Hemoglobin 10.8 L Hematocrit 36.7 L Mean Corpuscular Volume 107.6 H Mean Corpuscular Hemoglobin 31.7 Mean Corpuscular Hemoglobin Concent 29.4 L Red Cell Distribution Width 14.8 H Platelet Count 84 #L Mean Platelet Volume 11.4 H Neutrophils % 71.0 Lymphocytes % 15.2 Monocytes % 9.2 Eosinophils % 3.5 Basophils % 0.8 Nucleated Red Blood Cells % 0.0 Neutrophils # 2.6 Lymphocytes # 0.6 L Monocytes # 0.3 Eosinophils # 0.1 Basophils # 0.0 Nucleated Red Blood Cells # 0.0 Sodium Level 138 Potassium Level 3.8 Chloride Level 106 Carbon Dioxide Level 27 Anion Gap 9 Blood Urea Nitrogen 23 #H Creatinine 3.66 H Glucose Level 86 Calcium Level 10.3 H Phosphorus Level 5.7 H Magnesium Level 1.8 Creatine Kinase 39 Creatine Kinase Index 8.2 Creatinine Kinase MB (Mass) 3.20 H Troponin I 0.168 *H Random Vancomycin Level 10.9 Bedside Glucose 76 87 Medications Medications Current Medications Aspirin (Halfprin) 81 mg DAILY PO ; Start 06/29/17 at 09:00 Atorvastatin Calcium (Lipitor) 40 mg QHS PO ; Start 06/28/17 at 21:00 Phenol (Cepastat Lozenge) 1 lozenge Q4 PRN PO COUGH; Start 06/28/17 at 20:00 Carvedilol (Coreg) 12.5 mg BID PO ; Start 06/28/17 at 21:00 Clonidine HCl (Catapres-Tts 3 Patch) 1 patch Q7D TRANSDERM Last administered on 06/29/17 06:40; Admin Dose 1 PATCH; Start 06/28/17 at 20:00 Docusate Sodium (Colace) 100 mg BID PO ; Start 06/28/17 at 21:00 Folic Acid (Folic Acid) 1 mg DAILY PO ; Start 06/29/17 at 09:00 Hydralazine HCl (Apresoline) 100 mg TID PO ; Start 06/28/17 at 21:00 Hydroxyzine HCl (Atarax) 25 mg Q6H PRN PO ITCHING; Start 06/28/17 at 20:00 Multivit/Ca Carb/ B Cmplx/FA/Prenat (Sofy-Cooper) 1 tab DAILY PO ; Start 06/28/17 at 20:00 Nifedipine (Procardia Xl) 60 mg BID PO ; Start 06/28/17 at 21:00 Senna (Senokot) 1 tab DAILY PO ; Start 06/29/17 at 09:00 Ondansetron HCl (Zofran Inj) 4 mg Q6H PRN IV NAUSEA AND/OR VOMITING Last administered on 06/29/17 16:30; Admin Dose 4 MG; Start 06/28/17 at 20:00 Nitroglycerin (Nitroglycerin (Sl Tab) 0.4 Mg) 1 tab Q5M PRN SL CHEST PAIN; Start 06/28/17 at 20:00 Acetaminophen (Tylenol Tab) 650 mg Q6H PRN PO PAIN LEVEL 1-3 OR FEVER; Start at 20:00 Acetaminophen/ Hydrocodone Bitart ([place] (5/325)) 1 tab Q6H PRN PO PAIN LEVEL 4 -6; Start 06/28/17 at 20:00 Morphine Sulfate (morphine) 2 mg Q4H PRN IV PAIN LEVEL 7-10 Last administered on 06/29/17 16:29; Admin Dose 2 MG; Start 06/28/17 at 20:00 Docusate Sodium (Colace) 100 mg Q12H PRN PO CONSTIPATION; Start 06/28/17 at 20: 00 Magnesium Hydroxide (Milk Of Mag) 30 ml DAILY PRN PO CONSTIPATION; Start at 20:00 Bisacodyl (Dulcolax Supp) 10 mg DAILY PRN [place] CONSTIPATION; Start 06/28/17 at 20 :00 Famotidine 10 mg 10 mg Q48H PO ; Start 06/28/17 at 21:00 Sodium Chloride (NS) 1,000 ml @ 0 mls/hr Q0M PRN IV TO KEEP SBP ABOVE 90; Start 06/28/17 at 20:01 Hydralazine HCl (Apresoline) 10 mg Q4H PRN IV ELEVATED BLOOD PRESSURE Last administered on 07/01/17 11:20; Admin Dose 10 MG; Start 06/29/17 at 09:30 Heparin Sodium (Porcine) 5000 unit 5,000 unit BID SC Last administered on 10:08; Admin Dose 5,000 UNIT; Start 06/29/17 at 12:00 Dextrose/Sodium Chloride (D5-NS) 1,000 ml @ 70 mls/hr [id number] IV Last administered on 07/01/17 10:13; Admin Dose 70 MLS/HR; Start 06/29/17 at 11:30 Diagnostic Test (Pha) (Accu-Chek) 1 ea Q6 XX Last administered on 07/01/17 12: 03; Admin Dose 1 EA; Start 06/30/17 at 12:00 Mupirocin (Bactroban) 1 applic BID TOP Last administered on 07/01/17 10:10; Admin Dose 1 APPLIC; Start 06/30/17 at 12:00 Nitroglycerin 2 patch 2 patch DAILY TRANSDERM Last administered on 07/01/17 10 :11; Admin Dose 2 PATCH; Start 07/01/17 at 11:00 Piperacillin Sod/ Tazobactam Sod (Zosyn 2.25gm/ 50ml (Pmx)) 50 ml @ 100 mls/hr Q8 IVPB ; Start 07/01/17 at 14:00 Procedures Procedures Sinus rhythm, poor R-wave progression, nonspecific ST abnormalities Moises Miller DO Jul 01, 2017 12:50
--- NOTE | 2017-07-01 13:22 | CONS ---
Date/Time of Note Date/Time of Note DATE: 07/01/17 TIME: 13:20 Assessment/Plan Assessment/Plan Chief Complaint/Hosp Course 1. End-stage renal disease. 2. hypertension, uncontrolled. 3. Positive troponin. 4. [id number] myocardial infarction. 5. Malnutrition. 6. Hypoalbuminemia. 7. Protein-calorie malnutrition. 8. Encephalopathy. 9. Right tibial fracture, has a cast on. 10. Hypertension, uncontrolled. 11. SEPSIS resolving 12. Anemia Problems: Additional Assessment/Plan 1. continue HD 2. Optimization of kidney function Consultation Date/Type/Reason Admit Date/Time Jun 28, 2017 at 17:52 Initial Consult Date 06/28/2017 Type of Consultation: nephrology Reason for Consultation Dr Browne Exam/Review of Systems Vital Signs Vitals Vital Signs Date Time Temp Pulse Resp B/P Pulse Ox O2 Delivery O2 Flow Rate FiO2 07/01/17 12:00 57 07/01/17 11:09 98.1 17 176/85 96 07/01/17 09:56 2.0 07/01/17 09:10 Nasal Cannula Intake and Output 06/30/17 06/30/17 07/01/17 15:00 23:00 07:00 Intake Total 500 ml 50 ml 750 ml Output Total 2500 ml Balance -2000 ml 50 ml 750 ml Exam hard of hearing Constitutional: alert, oriented (name only) Gastrointestinal: soft Genitourinary - Female: nl external genitalia Musculoskeletal: other (right foot cast on) Results Result Diagram: 07/01/17 0523 07/01/17 0523 Results 24 hrs Laboratory Tests Test 06/30/17 17:15 06/30/17 20:10 06/30/17 20:29 07/01/17 00:25 Bedside Glucose 83 80 77 Carcinoembryonic Antigen 2.2 Test 07/01/17 05:23 07/01/17 05:41 07/01/17 12:18 White Blood Count 3.7 #L Red Blood Count 3.41 L Hemoglobin 10.8 L Hematocrit 36.7 L Mean Corpuscular Volume 107.6 H Mean Corpuscular Hemoglobin 31.7 Mean Corpuscular Hemoglobin Concent 29.4 L Red Cell Distribution Width 14.8 H Platelet Count 84 #L Mean Platelet Volume 11.4 H Neutrophils % 71.0 Lymphocytes % 15.2 Monocytes % 9.2 Eosinophils % 3.5 Basophils % 0.8 Nucleated Red Blood Cells % 0.0 Neutrophils # 2.6 Lymphocytes # 0.6 L Monocytes # 0.3 Eosinophils # 0.1 Basophils # 0.0 Nucleated Red Blood Cells # 0.0 Sodium Level 138 Potassium Level 3.8 Chloride Level 106 Carbon Dioxide Level 27 Anion Gap 9 Blood Urea Nitrogen 23 #H Creatinine 3.66 H Glucose Level 86 Calcium Level 10.3 H Phosphorus Level 5.7 H Magnesium Level 1.8 Creatine Kinase 39 Creatine Kinase Index 8.2 Creatinine Kinase MB (Mass) 3.20 H Troponin I 0.168 *H Random Vancomycin Level 10.9 Bedside Glucose 76 87 Medications Medications Current Medications Aspirin (Halfprin) 81 mg DAILY PO ; Start 06/29/17 at 09:00 Atorvastatin Calcium (Lipitor) 40 mg QHS PO ; Start 06/28/17 at 21:00 Phenol (Cepastat Lozenge) 1 lozenge Q4 PRN PO COUGH; Start 06/28/17 at 20:00 Carvedilol (Coreg) 12.5 mg BID PO ; Start 06/28/17 at 21:00 Clonidine HCl (Catapres-Tts 3 Patch) 1 patch Q7D TRANSDERM Last administered on 06/29/17 06:40; Admin Dose 1 PATCH; Start 06/28/17 at 20:00 Docusate Sodium (Colace) 100 mg BID PO ; Start 06/28/17 at 21:00 Folic Acid (Folic Acid) 1 mg DAILY PO ; Start 06/29/17 at 09:00 Hydralazine HCl (Apresoline) 100 mg TID PO ; Start 06/28/17 at 21:00 Hydroxyzine HCl (Atarax) 25 mg Q6H PRN PO ITCHING; Start 06/28/17 at 20:00 Multivit/Ca Carb/ B Cmplx/FA/Prenat (Sofy-Cooper) 1 tab DAILY PO ; Start 06/28/17 at 20:00 Nifedipine (Procardia Xl) 60 mg BID PO ; Start 06/28/17 at 21:00 Senna (Senokot) 1 tab DAILY PO ; Start 06/29/17 at 09:00 Ondansetron HCl (Zofran Inj) 4 mg Q6H PRN IV NAUSEA AND/OR VOMITING Last administered on 06/29/17 16:30; Admin Dose 4 MG; Start 06/28/17 at 20:00 Nitroglycerin (Nitroglycerin (Sl Tab) 0.4 Mg) 1 tab Q5M PRN SL CHEST PAIN; Start 06/28/17 at 20:00 Acetaminophen (Tylenol Tab) 650 mg Q6H PRN PO PAIN LEVEL 1-3 OR FEVER; Start at 20:00 Acetaminophen/ Hydrocodone Bitart ([place] (5/325)) 1 tab Q6H PRN PO PAIN LEVEL 4 -6; Start 06/28/17 at 20:00 Morphine Sulfate (morphine) 2 mg Q4H PRN IV PAIN LEVEL 7-10 Last administered on 06/29/17 16:29; Admin Dose 2 MG; Start 06/28/17 at 20:00 Docusate Sodium (Colace) 100 mg Q12H PRN PO CONSTIPATION; Start 06/28/17 at 20: 00 Magnesium Hydroxide (Milk Of Mag) 30 ml DAILY PRN PO CONSTIPATION; Start at 20:00 Bisacodyl (Dulcolax Supp) 10 mg DAILY PRN [place] CONSTIPATION; Start 06/28/17 at 20 :00 Famotidine 10 mg 10 mg Q48H PO ; Start 06/28/17 at 21:00 Sodium Chloride (NS) 1,000 ml @ 0 mls/hr Q0M PRN IV TO KEEP SBP ABOVE 90; Start 06/28/17 at 20:01 Hydralazine HCl (Apresoline) 10 mg Q4H PRN IV ELEVATED BLOOD PRESSURE Last administered on 07/01/17 11:20; Admin Dose 10 MG; Start 06/29/17 at 09:30 Heparin Sodium (Porcine) 5000 unit 5,000 unit BID SC Last administered on 10:08; Admin Dose 5,000 UNIT; Start 06/29/17 at 12:00 Dextrose/Sodium Chloride (D5-NS) 1,000 ml @ 70 mls/hr [id number] IV Last administered on 07/01/17 10:13; Admin Dose 70 MLS/HR; Start 06/29/17 at 11:30 Diagnostic Test (Pha) (Accu-Chek) 1 ea Q6 XX Last administered on 07/01/17 12: 03; Admin Dose 1 EA; Start 06/30/17 at 12:00 Mupirocin (Bactroban) 1 applic BID TOP Last administered on 07/01/17 10:10; Admin Dose 1 APPLIC; Start 06/30/17 at 12:00 Nitroglycerin 2 patch 2 patch DAILY TRANSDERM Last administered on 07/01/17 10 :11; Admin Dose 2 PATCH; Start 07/01/17 at 11:00 Piperacillin Sod/ Tazobactam Sod (Zosyn 2.25gm/ 50ml (Pmx)) 50 ml @ 100 mls/hr Q8 IVPB ; Start 07/01/17 at 14:00 CATA ALCANTARA Jul 01, 2017 13:22
[2017-07-01] MEDS ORDERED: BISACODYL (EC) 5 MG TAB PO PRN (17:00)
[2017-07-01] MEDS: ATORVASTATIN 40 MG TAB PO SCH (21:32)
[2017-07-02] VITALS (19 sets, daily range): BP systolic 105–191; BP diastolic 54–88; PULSE 50–80; RESP 18–20
[2017-07-02] MEDS: hydrALAzine 20 MG INJ IV PRN (06:32)
[2017-07-02] MEDS: PIPER-TAZO 2.25 GM (PMX) 50 ML IVPB SCH ×3 (06:32→22:03)
[2017-07-02 07:13] LABS: ABNORMAL IP MESSAGE 1; BASOPHILS % 0.7 % (0.0-2.0); EOSINOPHILS # 0.1 10^3/ul (0.0-0.5); HEMATOCRIT 36.7 % (37.0-47.0); HEMOGLOBIN 10.7 g/dl (12.0-16.0); LYMPHOCYTES # 0.7 10^3/ul (0.8-2.9); LYMPHOCYTES % 16.6 % (15.0-51.0); MEAN CORPUSCULAR HEMOGLOBIN 31.3 pg (29.0-33.0); MEAN CORPUSCULAR HGB CONC 29.2 g/dl (32.0-37.0); MEAN CORPUSCULAR VOLUME 107.3 fl (82.0-101.0); MEAN PLATELET VOLUME 11.7 fl (7.4-10.4); MONOCYTE # 0.4 10^3/ul (0.3-0.9); MONOCYTES % 8.2 % (0.0-11.0); NEUTROPHIL # 3.1 10^3/ul (1.6-7.5); NEUTROPHILS % 71.3 % (39.0-77.0); PLATELET COUNT 88 10^3/UL (140-415); RED BLOOD COUNT 3.42 10^6/ul (4.20-5.40); RED CELL DISTRIBUTION WIDTH 14.6 % (11.5-14.5); WHITE BLOOD COUNT 4.3 10^3/ul (4.8-10.8)
[2017-07-02 07:21] LABS: POSITIVE DIFF @See below
[2017-07-02 07:45] LABS: MAGNESIUM 1.8 mg/dl (1.7-2.5); PHOSPHORUS 6.3 mg/dl (2.5-4.9)
[2017-07-02] MEDS: SEVELAMER CARBONATE 0.8 GM PKT PO SCH ×3 (07:48→17:16)
[2017-07-02] MEDS: PANTOPRAZOLE (EC) 40 MG TAB PO SCH (07:48)
[2017-07-02] MEDS: ACCU-CHEK XX SCH ×4 (07:49→21:58)
[2017-07-02 08:18] LABS: CALCIUM 10.4 mg/dl (8.4-10.2); CREATININE 4.29 mg/dl (0.44-1.00); POTASSIUM 4.3 mmol/L (3.5-5.1)
[2017-07-02] MEDS: SENNA TAB PO SCH (08:44)
[2017-07-02] MEDS: DOCUSATE SODIUM 100 MG CAP PO SCH ×2 (08:44→20:49)
[2017-07-02] MEDS: ASPIRIN (EC) 81 MG TAB PO SCH (08:44)
[2017-07-02] MEDS: MULTIVIT/CA CARB/B CMPLX/FA TAB PO SCH (08:44)
[2017-07-02] MEDS: NIFEdipine (XL) 60 MG TAB PO SCH ×2 (08:44→21:59)
[2017-07-02] MEDS: FOLIC ACID 1 MG TAB PO SCH (08:44)
[2017-07-02] MEDS: MUPIROCIN 2% 22 GM OINT TOP SCH ×2 (08:45→20:50)
[2017-07-02] MEDS: HEPARIN 5,000 UNIT/0.5 ML VIAL SC SCH ×2 (08:53→20:54)
--- NOTE | 2017-07-02 09:49 | CONS ---
Date/Time of Note Date/Time of Note DATE: 07/02/17 TIME: 09:44 Consult Date/Type/Reason Admit Date/Time Jun 28, 2017 at 17:52 Initial Consult Date Type of Consultation: CARDIOLOGY Subjective CARDIOLOGY FOLLOW UP: SUBJECTIVE: D/W staff. pt remains in NSR. Pt remains confused. unable to obtain any history OBJECTIVE General: thin,. no acute distress HEENT: NC/AT. pupils are equal. round. NECK: NO JVD. no stridor. CV: RRR. systolic murmur; no gallop or rubs. PULM: no wheezing or rhonchi. GI: SOFT, NT, ND, no rebound or guarding Extremity: no significnat LE edema. no clubbing. neuro: awake does not answer my questions Psych: agitated but stable rectal: deferred : normal echo reviewed: Normal left ventricular systolic function. Normal left ventricular cavity size. Severe concentric left ventricular hypertrophy. Ejection fraction is visually estimated at 60 %. Tissue Doppler/Mitral Doppler indices are consistent with impaired relaxation (Stage I diastolic dysfunction). Normal right ventricular size. Normal right ventricular systolic function. There is mild enlargement of left atrium. There is mild enlargement of right atrium. Mild mitral valve regurgitation. No significant valvular stenosis or regurgitation seen of remaining visualized valves. Normal pericardium with no significant pericardial effusion. Left pleural effusion seen. Objective Vital Signs Date Time Temp Pulse Resp B/P Pulse Ox O2 Delivery O2 Flow Rate FiO2 07/02/17 08:46 185/84 07/02/17 08:01 64 07/02/17 07:39 98.0 20 99 07/01/17 20:00 Nasal Cannula 2.0 Intake and Output 07/01/17 07/01/17 07/02/17 15:00 23:00 07:00 Intake Total 220 ml 120 ml Balance 220 ml 120 ml Results/Medications Result Diagram: 07/02/17 0616 07/02/17 0616 Results 24 hrs Laboratory Tests Test 07/01/17 12:18 07/01/17 17:30 07/01/17 21:33 07/02/17 06:16 Bedside Glucose 87 83 72 White Blood Count 4.3 L Red Blood Count 3.42 L Hemoglobin 10.7 L Hematocrit 36.7 L Mean Corpuscular Volume 107.3 H Mean Corpuscular Hemoglobin 31.3 Mean Corpuscular Hemoglobin Concent 29.2 L Red Cell Distribution Width 14.6 H Platelet Count 88 L Mean Platelet Volume 11.7 H Neutrophils % 71.3 Lymphocytes % 16.6 Monocytes % 8.2 Eosinophils % 3.0 Basophils % 0.7 Nucleated Red Blood Cells % 0.0 Neutrophils # 3.1 Lymphocytes # 0.7 L Monocytes # 0.4 Eosinophils # 0.1 Basophils # 0.0 Nucleated Red Blood Cells # 0.0 Sodium Level 140 Potassium Level 4.3 Chloride Level 108 Carbon Dioxide Level 25 Anion Gap 11 Blood Urea Nitrogen 28 H Creatinine 4.29 H Glucose Level 79 Calcium Level 10.4 H Phosphorus Level 6.3 H Magnesium Level 1.8 Test 07/02/17 07:49 Bedside Glucose 78 Medications Current Medications Aspirin (Halfprin) 81 mg DAILY PO Last administered on 07/02/17 08:44; Admin Dose 81 MG; Start 06/29/17 at 09:00 Atorvastatin Calcium (Lipitor) 40 mg QHS PO Last administered on 07/01/17 21: 32; Admin Dose 40 MG; Start 06/28/17 at 21:00 Phenol (Cepastat Lozenge) 1 lozenge Q4 PRN PO COUGH; Start 06/28/17 at 20:00 Carvedilol (Coreg) 12.5 mg BID PO Last administered on 07/02/17 09:18; Admin Dose 12.5 MG; Start 06/28/17 at 21:00 Clonidine HCl (Catapres-Tts 3 Patch) 1 patch Q7D TRANSDERM Last administered on 06/29/17 06:40; Admin Dose 1 PATCH; Start 06/28/17 at 20:00 Docusate Sodium (Colace) 100 mg BID PO Last administered on 07/02/17 08:44; Admin Dose 100 MG; Start 06/28/17 at 21:00 Folic Acid (Folic Acid) 1 mg DAILY PO Last administered on 07/02/17 08:44; Admin Dose 1 MG; Start 06/29/17 at 09:00 Hydralazine HCl (Apresoline) 100 mg TID PO Last administered on 07/02/17 08:44 ; Admin Dose 100 MG; Start 06/28/17 at 21:00 Hydroxyzine HCl (Atarax) 25 mg Q6H PRN PO ITCHING; Start 06/28/17 at 20:00 Multivit/Ca Carb/ B Cmplx/FA/Prenat (Sofy-Cooper) 1 tab DAILY PO Last administered on 07/02/17 08:44; Admin Dose 1 TAB; Start 06/28/17 at 20:00 Nifedipine (Procardia Xl) 60 mg BID PO Last administered on 07/02/17 08:44; Admin Dose 60 MG; Start 06/28/17 at 21:00 Senna (Senokot) 1 tab DAILY PO Last administered on 07/02/17 08:44; Admin Dose 1 TAB; Start 06/29/17 at 09:00 Ondansetron HCl (Zofran Inj) 4 mg Q6H PRN IV NAUSEA AND/OR VOMITING Last administered on 06/29/17 16:30; Admin Dose 4 MG; Start 06/28/17 at 20:00 Nitroglycerin (Nitroglycerin (Sl Tab) 0.4 Mg) 1 tab Q5M PRN SL CHEST PAIN; Start 06/28/17 at 20:00 Acetaminophen (Tylenol Tab) 650 mg Q6H PRN PO PAIN LEVEL 1-3 OR FEVER; Start at 20:00 Acetaminophen/ Hydrocodone Bitart ([place] (5/325)) 1 tab Q6H PRN PO PAIN LEVEL 4 -6; Start 06/28/17 at 20:00 Morphine Sulfate (morphine) 2 mg Q4H PRN IV PAIN LEVEL 7-10 Last administered on 06/29/17 16:29; Admin Dose 2 MG; Start 06/28/17 at 20:00 Docusate Sodium (Colace) 100 mg Q12H PRN PO CONSTIPATION; Start 06/28/17 at 20: 00 Magnesium Hydroxide (Milk Of Mag) 30 ml DAILY PRN PO CONSTIPATION; Start at 20:00 Bisacodyl (Dulcolax Supp) 10 mg DAILY PRN [place] CONSTIPATION; Start 06/28/17 at 20 :00 Famotidine 10 mg 10 mg Q48H PO ; Start 06/28/17 at 21:00 Sodium Chloride (NS) 1,000 ml @ 0 mls/hr Q0M PRN IV TO KEEP SBP ABOVE 90; Start 06/28/17 at 20:01 Hydralazine HCl (Apresoline) 10 mg Q4H PRN IV ELEVATED BLOOD PRESSURE Last administered on 07/02/17 06:32; Admin Dose 10 MG; Start 06/29/17 at 09:30 Heparin Sodium (Porcine) (Heparin (5000 Units/0.5 ml)) 5,000 unit BID SC Last administered on 07/02/17 08:53; Admin Dose 5,000 UNIT; Start 06/29/17 at 12:00 Mupirocin 1 applic 1 applic BID TOP Last administered on 07/02/17 08:45; Admin Dose 1 APPLIC; Start 06/30/17 at 12:00 Piperacillin Sod/ Tazobactam Sod (Zosyn 2.25gm/ 50ml (Pmx)) 50 ml @ 100 mls/hr Q8 IVPB Last administered on 07/02/17 06:32; Admin Dose 100 MLS/HR; Start at 14:00 Assessment/Plan Chief Complaint/Hosp Course 1. mildly abnormal trop 2. HTN: 3. ESRD on HD 4. ANEMIA 5. Encephalopathy 6/ hx noncompliance with meds and HD. cont current cardiac care. cont ASA HD as per renal will cont statin on tele monitoring THANK YOU SHITAL NATH MD [facility] Problems: SHITAL NATH MD Jul 02, 2017 09:49
[2017-07-02] MEDS: LISINOPRIL 10 MG TAB PO SCH (11:00)
--- NOTE | 2017-07-02 14:58 | CONS ---
Date/Time of Note Date/Time of Note DATE: 07/02/17 TIME: 14:57 Assessment/Plan Assessment/Plan Chief Complaint/Hosp Course 1. End-stage renal disease. 2. hypertension, controlled. 3. Positive troponin. 4. [id number] myocardial infarction. 5. Malnutrition. 6. Hypoalbuminemia. 7. Protein-calorie malnutrition. 8. Encephalopathy. 9. Right tibial fracture, has a cast on. 10. Hypertension, uncontrolled. 11. SEPSIS resolving 12. Anemia Problems: Additional Assessment/Plan 1. optimization Kidney function 2. continue HD treatment Consultation Date/Type/Reason Admit Date/Time Jun 28, 2017 at 17:52 Initial Consult Date 06/28/2017 Type of Consultation: nephrology Reason for Consultation dr Browne Exam/Review of Systems Vital Signs Vitals Vital Signs Date Time Temp Pulse Resp B/P Pulse Ox O2 Delivery O2 Flow Rate FiO2 07/02/17 12:59 67 18 128/62 07/02/17 11:38 97.8 95 07/02/17 08:00 Nasal Cannula 2.0 Intake and Output 07/01/17 07/01/17 07/02/17 15:00 23:00 07:00 Intake Total 220 ml 120 ml Balance 220 ml 120 ml Exam Constitutional: oriented (name) Respiratory: diminished breath sounds Cardiovascular: regular rate and rhythm Results Result Diagram: 07/02/1716 07/02/1716 Results 24 hrs Laboratory Tests Test 07/01/17 17:30 07/01/17 21:33 07/02/17 06:16 07/02/17 07:49 Bedside Glucose 83 72 78 White Blood Count 4.3 L Red Blood Count 3.42 L Hemoglobin 10.7 L Hematocrit 36.7 L Mean Corpuscular Volume 107.3 H Mean Corpuscular Hemoglobin 31.3 Mean Corpuscular Hemoglobin Concent 29.2 L Red Cell Distribution Width 14.6 H Platelet Count 88 L Mean Platelet Volume 11.7 H Neutrophils % 71.3 Lymphocytes % 16.6 Monocytes % 8.2 Eosinophils % 3.0 Basophils % 0.7 Nucleated Red Blood Cells % 0.0 Neutrophils # 3.1 Lymphocytes # 0.7 L Monocytes # 0.4 Eosinophils # 0.1 Basophils # 0.0 Nucleated Red Blood Cells # 0.0 Sodium Level 140 Potassium Level 4.3 Chloride Level 108 Carbon Dioxide Level 25 Anion Gap 11 Blood Urea Nitrogen 28 H Creatinine 4.29 H Glucose Level 79 Calcium Level 10.4 H Phosphorus Level 6.3 H Magnesium Level 1.8 Test 07/02/17 11:45 Bedside Glucose 135 Medications Medications Current Medications Aspirin (Halfprin) 81 mg DAILY PO Last administered on 07/02/17 08:44; Admin Dose 81 MG; Start 06/29/17 at 09:00 Atorvastatin Calcium (Lipitor) 40 mg QHS PO Last administered on 07/01/17 21: 32; Admin Dose 40 MG; Start 06/28/17 at 21:00 Phenol (Cepastat Lozenge) 1 lozenge Q4 PRN PO COUGH; Start 06/28/17 at 20:00 Carvedilol (Coreg) 12.5 mg BID PO Last administered on 07/02/17 09:18; Admin Dose 12.5 MG; Start 06/28/17 at 21:00 Clonidine HCl (Catapres-Tts 3 Patch) 1 patch Q7D TRANSDERM Last administered on 06/29/17 06:40; Admin Dose 1 PATCH; Start 06/28/17 at 20:00 Docusate Sodium (Colace) 100 mg BID PO Last administered on 07/02/17 08:44; Admin Dose 100 MG; Start 06/28/17 at 21:00 Folic Acid (Folic Acid) 1 mg DAILY PO Last administered on 07/02/17 08:44; Admin Dose 1 MG; Start 06/29/17 at 09:00 Hydralazine HCl (Apresoline) 100 mg TID PO Last administered on 07/02/17 13:00 ; Admin Dose 100 MG; Start 06/28/17 at 21:00 Hydroxyzine HCl (Atarax) 25 mg Q6H PRN PO ITCHING; Start 06/28/17 at 20:00 Multivit/Ca Carb/ B Cmplx/FA/Prenat (Sofy-Cooper) 1 tab DAILY PO Last administered on 07/02/17 08:44; Admin Dose 1 TAB; Start 06/28/17 at 20:00 Nifedipine (Procardia Xl) 60 mg BID PO Last administered on 07/02/17 08:44; Admin Dose 60 MG; Start 06/28/17 at 21:00 Senna (Senokot) 1 tab DAILY PO Last administered on 07/02/17 08:44; Admin Dose 1 TAB; Start 06/29/17 at 09:00 Ondansetron HCl (Zofran Inj) 4 mg Q6H PRN IV NAUSEA AND/OR VOMITING Last administered on 06/29/17 16:30; Admin Dose 4 MG; Start 06/28/17 at 20:00 Nitroglycerin (Nitroglycerin (Sl Tab) 0.4 Mg) 1 tab Q5M PRN SL CHEST PAIN; Start 06/28/17 at 20:00 Acetaminophen (Tylenol Tab) 650 mg Q6H PRN PO PAIN LEVEL 1-3 OR FEVER Last administered on 07/02/17 13:00; Admin Dose 650 MG; Start 06/28/17 at 20:00 Acetaminophen/ Hydrocodone Bitart ([place] (5/325)) 1 tab Q6H PRN PO PAIN LEVEL 4 -6; Start 06/28/17 at 20:00 Morphine Sulfate (morphine) 2 mg Q4H PRN IV PAIN LEVEL 7-10 Last administered on 06/29/17 16:29; Admin Dose 2 MG; Start 06/28/17 at 20:00 Docusate Sodium (Colace) 100 mg Q12H PRN PO CONSTIPATION; Start 06/28/17 at 20: 00 Magnesium Hydroxide (Milk Of Mag) 30 ml DAILY PRN PO CONSTIPATION; Start at 20:00 Bisacodyl (Dulcolax Supp) [address] CONSTIPATION; Start 06/28/17 at 20 :00 Famotidine 10 mg 10 mg Q48H PO ; Start 06/28/17 at 21:00 Sodium Chloride (NS) 1,000 ml @ 0 mls/hr Q0M PRN IV TO KEEP SBP ABOVE 90; Start 06/28/17 at 20:01 Hydralazine HCl (Apresoline) 10 mg Q4H PRN IV ELEVATED BLOOD PRESSURE Last administered on 07/02/17 06:32; Admin Dose 10 MG; Start 06/29/17 at 09:30 Heparin Sodium (Porcine) (Heparin (5000 Units/0.5 ml)) 5,000 unit BID SC Last administered on 07/02/17 08:53; Admin Dose 5,000 UNIT; Start 06/29/17 at 12:00 Mupirocin 1 applic 1 applic BID TOP Last administered on 07/02/17 08:45; Admin Dose 1 APPLIC; Start 06/30/17 at 12:00 Piperacillin Sod/ Tazobactam Sod (Zosyn 2.25gm/ 50ml (Pmx)) 50 ml @ 100 mls/hr Q8 IVPB Last administered on 07/02/17 13:55; Admin Dose 100 MLS/HR; Start at 14:00 Lisinopril (Zestril) 10 mg DAILY PO ; Start 07/02/17 at 11:00 CATA ALCANTARA Jul 02, 2017 14:58
--- NOTE | 2017-07-02 16:11 | PN ---
Date/Time of Note Date/Time of Note DATE: 07/02/17 TIME: 16:01 Assessment/Plan VTE Prophylaxis VTE Prophylaxis Intervention: heparin Lines/Catheters IV [facility] Type [facility]from [facility] [place] [facility] Urinary Cath still in place: No Assessment/Plan Chief Complaint/Hosp Course 1. Severe encephalopathy, patient was almost comatose on presentation with systolic blood pressures in the 200s. Mental status keeps improving, she is much more awake today, primarily [place] speaking. CAT scan of the head followed by MRI of the brain are both negative for acute injury. Ammonia within normal Controlling blood pressure with IV medications and transdermal patches, continue clonidine patch, continue nifedipine and have started lisinopril Speech reevaluation done and patient started on a p.o. diet Glucose stable on D5 drip until able to take p.o. Continue to monitor neurologically. 2. Severe protein malnutrition, weight loss decreased p.o. intake, episodes of vomiting 1 day of admission CAT scan of the abdomen and pelvis with findings possibly consistent with mild colitis, continue Zosyn. She is DNR, according to the daughter they do not wish to put a feeding tube. 3. Malignant hypertension-BP still elevated -Continue current regimen and have added lisinopril - clonidine patch on board, continue Nitro-Dur patch 0.3, likely to be titrated to 0.6 within the next 24 to 48 hrs. 4. End-stage renal disease, on hemodialysis now per schedule 5. Right tibial fracture, subacute to chronic, cast in place. Follow-up with orthopedic surgery as an outpatient. 6. Enterococcus positive blood culture 2, ampicillin sensitive, repeat blood cultures NGTD Continue Zosyn 7. Mild troponin elevation, in setting of hemodialysis patient, hypertensive emergency on admission. Patient was seen at [facility] a few days ago where she was reported to also have slightly elevated troponin at 0.068 which was deemed to be related to her renal disease. Apparently she did have an echocardiogram but there is no dictation or reading as far as we know. Troponin is slightly elevated here up and remains around 0.16.. Patient is asymptomatic. Echo shows a preserved EF with severe LVH Prophylaxis: Heparin subcu for DVT prophylaxis, Pepcid for GI prophylaxis Disposition: Dialysis per nephrology, Zosyn for enterococcus bacteremia and possible mild colitis on CAT scan, continue BP control Problems: Subjective 24 Hr Interval Summary Constitutional: no complaints Exam/Review of Systems Vital Signs Vitals Vital Signs Date Time Temp Pulse Resp B/P Pulse Ox O2 Delivery O2 Flow Rate FiO2 07/02/17 15:42 98.1 66 20 134/71 99 07/02/17 08:00 Nasal Cannula 2.0 Intake and Output 07/01/17 07/01/17 07/02/17 15:00 23:00 07:00 Intake Total 220 ml 120 ml Balance 220 ml 120 ml Exam Constitutional: alert Psych: confusion Respiratory: clear to auscultation Cardiovascular: regular rate and rhythm Gastrointestinal: soft, No distended Musculoskeletal: nl extremities to inspection Results Result Diagram: 07/02/17 0616 07/02/17 0616 Results 24 hrs Laboratory Tests Test 07/01/17 17:30 07/01/17 21:33 07/02/17 06:16 07/02/17 07:49 Bedside Glucose 83 72 78 White Blood Count 4.3 L Red Blood Count 3.42 L Hemoglobin 10.7 L Hematocrit 36.7 L Mean Corpuscular Volume 107.3 H Mean Corpuscular Hemoglobin 31.3 Mean Corpuscular Hemoglobin Concent 29.2 L Red Cell Distribution Width 14.6 H Platelet Count 88 L Mean Platelet Volume 11.7 H Neutrophils % 71.3 Lymphocytes % 16.6 Monocytes % 8.2 Eosinophils % 3.0 Basophils % 0.7 Nucleated Red Blood Cells % 0.0 Neutrophils # 3.1 Lymphocytes # 0.7 L Monocytes # 0.4 Eosinophils # 0.1 Basophils # 0.0 Nucleated Red Blood Cells # 0.0 Sodium Level 140 Potassium Level 4.3 Chloride Level 108 Carbon Dioxide Level 25 Anion Gap 11 Blood Urea Nitrogen 28 H Creatinine 4.29 H Glucose Level 79 Calcium Level 10.4 H Phosphorus Level 6.3 H Magnesium Level 1.8 Test 07/02/17 11:45 Bedside Glucose 135 Medications Medications Current Medications Aspirin (Halfprin) 81 mg DAILY PO Last administered on 07/02/17 08:44; Admin Dose 81 MG; Start 06/29/17 at 09:00 Atorvastatin Calcium (Lipitor) 40 mg QHS PO Last administered on 07/01/17 21: 32; Admin Dose 40 MG; Start 06/28/17 at 21:00 Phenol (Cepastat Lozenge) 1 lozenge Q4 PRN PO COUGH; Start 06/28/17 at 20:00 Carvedilol (Coreg) 12.5 mg BID PO Last administered on 07/02/17 09:18; Admin Dose 12.5 MG; Start 06/28/17 at 21:00 Clonidine HCl (Catapres-Tts 3 Patch) 1 patch Q7D TRANSDERM Last administered on 06/29/17 06:40; Admin Dose 1 PATCH; Start 06/28/17 at 20:00 Docusate Sodium (Colace) 100 mg BID PO Last administered on 07/02/17 08:44; Admin Dose 100 MG; Start 06/28/17 at 21:00 Folic Acid (Folic Acid) 1 mg DAILY PO Last administered on 07/02/17 08:44; Admin Dose 1 MG; Start 06/29/17 at 09:00 Hydralazine HCl (Apresoline) 100 mg TID PO Last administered on 07/02/17 13:00 ; Admin Dose 100 MG; Start 06/28/17 at 21:00 Hydroxyzine HCl (Atarax) 25 mg Q6H PRN PO ITCHING; Start 06/28/17 at 20:00 Multivit/Ca Carb/ B Cmplx/FA/Prenat (Sofy-Cooper) 1 tab DAILY PO Last administered on 07/02/17 08:44; Admin Dose 1 TAB; Start 06/28/17 at 20:00 Nifedipine (Procardia Xl) 60 mg BID PO Last administered on 07/02/17 08:44; Admin Dose 60 MG; Start 06/28/17 at 21:00 Senna (Senokot) 1 tab DAILY PO Last administered on 07/02/17 08:44; Admin Dose 1 TAB; Start 06/29/17 at 09:00 Ondansetron HCl (Zofran Inj) 4 mg Q6H PRN IV NAUSEA AND/OR VOMITING Last administered on 06/29/17 16:30; Admin Dose 4 MG; Start 06/28/17 at 20:00 Nitroglycerin (Nitroglycerin (Sl Tab) 0.4 Mg) 1 tab Q5M PRN SL CHEST PAIN; Start 06/28/17 at 20:00 Acetaminophen (Tylenol Tab) 650 mg Q6H PRN PO PAIN LEVEL 1-3 OR FEVER Last administered on 07/02/17 13:00; Admin Dose 650 MG; Start 06/28/17 at 20:00 Acetaminophen/ Hydrocodone Bitart ([place] (5/325)) 1 tab Q6H PRN PO PAIN LEVEL 4 -6; Start 06/28/17 at 20:00 Morphine Sulfate (morphine) 2 mg Q4H PRN IV PAIN LEVEL 7-10 Last administered on 06/29/17 16:29; Admin Dose 2 MG; Start 06/28/17 at 20:00 Docusate Sodium (Colace) 100 mg Q12H PRN PO CONSTIPATION; Start 06/28/17 at 20: 00 Magnesium Hydroxide (Milk Of Mag) 30 ml DAILY PRN PO CONSTIPATION; Start at 20:00 Bisacodyl (Dulcolax Supp) 10 mg DAILY PRN [place] CONSTIPATION; Start 06/28/17 at 20 :00 Famotidine 10 mg 10 mg Q48H PO ; Start 06/28/17 at 21:00 Sodium Chloride (NS) 1,000 ml @ 0 mls/hr Q0M PRN IV TO KEEP SBP ABOVE 90; Start 06/28/17 at 20:01 Hydralazine HCl (Apresoline) 10 mg Q4H PRN IV ELEVATED BLOOD PRESSURE Last administered on 07/02/17 06:32; Admin Dose 10 MG; Start 06/29/17 at 09:30 Heparin Sodium (Porcine) (Heparin (5000 Units/0.5 ml)) 5,000 unit BID SC Last administered on 07/02/17 08:53; Admin Dose 5,000 UNIT; Start 06/29/17 at 12:00 Mupirocin 1 applic 1 applic BID TOP Last administered on 07/02/17 08:45; Admin Dose 1 APPLIC; Start 06/30/17 at 12:00 Piperacillin Sod/ Tazobactam Sod (Zosyn 2.25gm/ 50ml (Pmx)) 50 ml @ 100 mls/hr Q8 IVPB Last administered on 07/02/17 13:55; Admin Dose 100 MLS/HR; Start at 14:00 Lisinopril (Zestril) 10 mg DAILY PO ; Start 07/02/17 at 11:00 SUSAN FALL Jul 02, 2017 16:11
[2017-07-02] MEDS: ATORVASTATIN 40 MG TAB PO SCH (20:48)
[2017-07-02] MEDS: FAMOTIDINE 20 MG TAB PO SCH (20:49)
[2017-07-03] VITALS (13 sets, daily range): BP systolic 121–200; BP diastolic 60–102; PULSE 54–67; RESP 16–20
[2017-07-03] MEDS: hydrALAzine 20 MG INJ IV PRN (03:11)
[2017-07-03] MEDS: PIPER-TAZO 2.25 GM (PMX) 50 ML IVPB SCH ×3 (05:31→21:07)
[2017-07-03 06:43] LABS: ABNORMAL IP MESSAGE 1; BASOPHILS % 0.6 % (0.0-2.0); EOSINOPHILS # 0.1 10^3/ul (0.0-0.5); EOSINOPHILS % 1.9 % (0.0-7.0); HEMATOCRIT 38.2 % (37.0-47.0); HEMOGLOBIN 11.2 g/dl (12.0-16.0); LYMPHOCYTES # 0.6 10^3/ul (0.8-2.9); LYMPHOCYTES % 12.2 % (15.0-51.0); MEAN CORPUSCULAR HEMOGLOBIN 31.2 pg (29.0-33.0); MEAN CORPUSCULAR HGB CONC 29.3 g/dl (32.0-37.0); MEAN CORPUSCULAR VOLUME 106.4 fl (82.0-101.0); MEAN PLATELET VOLUME 11.8 fl (7.4-10.4); MONOCYTE # 0.4 10^3/ul (0.3-0.9); MONOCYTES % 7.8 % (0.0-11.0); NEUTROPHIL # 3.7 10^3/ul (1.6-7.5); NEUTROPHILS % 77.1 % (39.0-77.0); PLATELET COUNT 82 10^3/UL (140-415); RED BLOOD COUNT 3.59 10^6/ul (4.20-5.40); WHITE BLOOD COUNT 4.8 10^3/ul (4.8-10.8)
[2017-07-03 06:47] LABS: POSITIVE DIFF @See below
[2017-07-03] MEDS: ACCU-CHEK XX SCH ×4 (07:19→21:12)
[2017-07-03] MEDS: PANTOPRAZOLE (EC) 40 MG TAB PO SCH (07:21)
[2017-07-03] MEDS: SEVELAMER CARBONATE 0.8 GM PKT PO SCH ×3 (07:21→17:27)
[2017-07-03 07:24] LABS: CALCIUM 10.2 mg/dl (8.4-10.2); CREATININE 3.18 mg/dl (0.44-1.00); POTASSIUM 4.3 mmol/L (3.5-5.1)
[2017-07-03] MEDS: NIFEdipine (XL) 60 MG TAB PO SCH ×2 (08:42→20:44)
[2017-07-03] MEDS: LISINOPRIL 10 MG TAB PO SCH (08:42)
[2017-07-03] MEDS: SENNA TAB PO SCH (08:43)
[2017-07-03] MEDS: ASPIRIN (EC) 81 MG TAB PO SCH (08:43)
[2017-07-03] MEDS: MULTIVIT/CA CARB/B CMPLX/FA TAB PO SCH (08:43)
[2017-07-03] MEDS: FOLIC ACID 1 MG TAB PO SCH (08:43)
[2017-07-03] MEDS: DOCUSATE SODIUM 100 MG CAP PO SCH ×2 (08:43→20:43)
[2017-07-03] MEDS: MUPIROCIN 2% 22 GM OINT TOP SCH ×2 (08:49→20:45)
[2017-07-03] MEDS: HEPARIN 5,000 UNIT/0.5 ML VIAL SC SCH ×2 (08:49→20:48)
--- NOTE | 2017-07-03 13:33 | CONS ---
Date/Time of Note Date/Time of Note DATE: 07/03/17 TIME: 13:32 Consult Date/Type/Reason Admit Date/Time Jun 28, 2017 at 17:52 Type of Consultation: CARDIOLOGY Subjective CARDIOLOGY FOLLOW UP: SUBJECTIVE: D/W staff. pt remains in NSR. Pt is unable to provide any history OBJECTIVE General: thin,. no acute distress HEENT: NC/AT. pupils are equal. round. NECK: NO JVD. no stridor. CV: RRR. systolic murmur; no gallop or rubs. PULM: no wheezing or rhonchi. GI: SOFT, NT, ND, no rebound or guarding Extremity: no significnat LE edema. no clubbing. neuro: awake does not answer my questions Psych: agitated but stable rectal: deferred : normal echo reviewed: Normal left ventricular systolic function. Normal left ventricular cavity size. Severe concentric left ventricular hypertrophy. Ejection fraction is visually estimated at 60 %. Tissue Doppler/Mitral Doppler indices are consistent with impaired relaxation (Stage I diastolic dysfunction). Normal right ventricular size. Normal right ventricular systolic function. There is mild enlargement of left atrium. There is mild enlargement of right atrium. Mild mitral valve regurgitation. No significant valvular stenosis or regurgitation seen of remaining visualized valves. Normal pericardium with no significant pericardial effusion. Left pleural effusion seen. Objective Vital Signs Date Time Temp Pulse Resp B/P Pulse Ox O2 Delivery O2 Flow Rate FiO2 07/03/17 12:33 58 07/03/17 11:17 97.5 20 121/60 94 07/03/17 07:27 Nasal Cannula 2.0 07/03/17 03:35 28 Intake and Output 07/02/17 07/02/17 07/03/17 15:00 23:00 07:00 Intake Total 550 ml 720 ml 70 ml Output Total 2500 ml Balance -1950 ml 720 ml 70 ml Results/Medications Result Diagram: 07/03/17 0602 07/03/17 0602 Results 24 hrs Laboratory Tests Test 07/02/17 17:17 07/02/17 21:58 07/03/17 06:02 07/03/17 07:18 Bedside Glucose 86 117 104 White Blood Count 4.8 Red Blood Count 3.59 L Hemoglobin 11.2 L Hematocrit 38.2 Mean Corpuscular Volume 106.4 H Mean Corpuscular Hemoglobin 31.2 Mean Corpuscular Hemoglobin Concent 29.3 L Red Cell Distribution Width 15.0 H Platelet Count 82 L Mean Platelet Volume 11.8 H Neutrophils % 77.1 H Lymphocytes % 12.2 L Monocytes % 7.8 Eosinophils % 1.9 Basophils % 0.6 Nucleated Red Blood Cells % 0.0 Neutrophils # 3.7 Lymphocytes # 0.6 L Monocytes # 0.4 Eosinophils # 0.1 Basophils # 0.0 Nucleated Red Blood Cells # 0.0 Sodium Level 145 H Potassium Level 4.3 Chloride Level 111 H Carbon Dioxide Level 29 Anion Gap 9 Blood Urea Nitrogen 20 Creatinine 3.18 #H Glucose Level 86 Calcium Level 10.2 Test 07/03/17 11:44 Bedside Glucose 92 Medications Current Medications Aspirin (Halfprin) 81 mg DAILY PO Last administered on 07/03/17 08:43; Admin Dose 81 MG; Start 06/29/17 at 09:00 Atorvastatin Calcium (Lipitor) 40 mg QHS PO Last administered on 07/02/17 20: 48; Admin Dose 40 MG; Start 06/28/17 at 21:00 Phenol (Cepastat Lozenge) 1 lozenge Q4 PRN PO COUGH; Start 06/28/17 at 20:00 Carvedilol (Coreg) 12.5 mg BID PO Last administered on 07/03/17 08:43; Admin Dose 12.5 MG; Start 06/28/17 at 21:00 Clonidine HCl (Catapres-Tts 3 Patch) 1 patch Q7D TRANSDERM Last administered on 06/29/17 06:40; Admin Dose 1 PATCH; Start 06/28/17 at 20:00 Docusate Sodium (Colace) 100 mg BID PO Last administered on 07/03/17 08:43; Admin Dose 100 MG; Start 06/28/17 at 21:00 Folic Acid (Folic Acid) 1 mg DAILY PO Last administered on 07/03/17 08:43; Admin Dose 1 MG; Start 06/29/17 at 09:00 Hydralazine HCl (Apresoline) 100 mg TID PO Last administered on 07/03/17 12:09 ; Admin Dose 100 MG; Start 06/28/17 at 21:00 Hydroxyzine HCl (Atarax) 25 mg Q6H PRN PO ITCHING; Start 06/28/17 at 20:00 Multivit/Ca Carb/ B Cmplx/FA/Prenat (Sofy-Cooper) 1 tab DAILY PO Last administered on 07/03/17 08:43; Admin Dose 1 TAB; Start 06/28/17 at 20:00 Nifedipine (Procardia Xl) 60 mg BID PO Last administered on 07/03/17 08:42; Admin Dose 60 MG; Start 06/28/17 at 21:00 Senna (Senokot) 1 tab DAILY PO Last administered on 07/03/17 08:43; Admin Dose 1 TAB; Start 06/29/17 at 09:00 Ondansetron HCl (Zofran Inj) 4 mg Q6H PRN IV NAUSEA AND/OR VOMITING Last administered on 06/29/17 16:30; Admin Dose 4 MG; Start 06/28/17 at 20:00 Nitroglycerin (Nitroglycerin (Sl Tab) 0.4 Mg) 1 tab Q5M PRN SL CHEST PAIN; Start 06/28/17 at 20:00 Acetaminophen (Tylenol Tab) 650 mg Q6H PRN PO PAIN LEVEL 1-3 OR FEVER Last administered on 07/02/17 13:00; Admin Dose 650 MG; Start 06/28/17 at 20:00 Acetaminophen/ Hydrocodone Bitart ([place] (5/325)) 1 tab Q6H PRN PO PAIN LEVEL 4 -6; Start 06/28/17 at 20:00 Morphine Sulfate (morphine) 2 mg Q4H PRN IV PAIN LEVEL 7-10 Last administered on 06/29/17 16:29; Admin Dose 2 MG; Start 06/28/17 at 20:00 Docusate Sodium (Colace) 100 mg Q12H PRN PO CONSTIPATION; Start 06/28/17 at 20: 00 Magnesium Hydroxide (Milk Of Mag) 30 ml DAILY PRN PO CONSTIPATION; Start at 20:00 Bisacodyl (Dulcolax Supp) 10 mg DAILY PRN [place] CONSTIPATION; Start 06/28/17 at 20 :00 Famotidine 10 mg 10 mg Q48H PO Last administered on 07/02/17 20:49; Admin Dose 10 MG; Start 06/28/17 at 21:00 Sodium Chloride (NS) 1,000 ml @ 0 mls/hr Q0M PRN IV TO KEEP SBP ABOVE 90; Start 06/28/17 at 20:01 Hydralazine HCl (Apresoline) 10 mg Q4H PRN IV ELEVATED BLOOD PRESSURE Last administered on 07/03/17 03:11; Admin Dose 10 MG; Start 06/29/17 at 09:30 Heparin Sodium (Porcine) (Heparin (5000 Units/0.5 ml)) 5,000 unit BID SC Last administered on 07/03/17 08:49; Admin Dose 5,000 UNIT; Start 06/29/17 at 12:00 Mupirocin 1 applic 1 applic BID TOP Last administered on 07/03/17 08:49; Admin Dose 1 APPLIC; Start 06/30/17 at 12:00 Piperacillin Sod/ Tazobactam Sod (Zosyn 2.25gm/ 50ml (Pmx)) 50 ml @ 100 mls/hr Q8 IVPB Last administered on 07/03/17 05:31; Admin Dose 100 MLS/HR; Start at 14:00 Lisinopril (Zestril) 10 mg DAILY PO Last administered on 07/03/17 08:42; Admin Dose 10 MG; Start 07/02/17 at 11:00 Assessment/Plan Chief Complaint/Hosp Course 1. mildly abnormal trop 2. HTN: 3. ESRD on HD 4. ANEMIA 5. Encephalopathy 6/ hx noncompliance with meds and HD. cont current cardiac care. BP is much improved today cont ASA HD as per renal will cont statin on tele monitoring Dr Miller will resume cardiac care tomorrow. THANK YOU SHITAL NATH MD [facility] Problems: SHITAL NATH MD Jul 03, 2017 13:33
--- NOTE | 2017-07-03 19:33 | CONS ---
Date/Time of Note Date/Time of Note DATE: 07/03/17 TIME: 19:32 Assessment/Plan Assessment/Plan Chief Complaint/Hosp Course IMPRESSION: 1. Encephalopathy.BETTER 2. hypertension. 3. Positive troponin. 4. Kyr-GF-[id number] myocardial infarction. 5. Malnutrition. 6. Hypoalbuminemia. 7. Protein-calorie malnutrition. 8. End-stage renal disease. 9. Right tibial fracture, has a cast on. 10. Hypertension. 11. SEPSIS PLAN HD AM Problems: Consultation Date/Type/Reason Admit Date/Time Jun 28, 2017 at 17:52 Type of Consultation: RENAL 24 HR Interval Summary Constitutional: no complaints Exam/Review of Systems Vital Signs Vitals Vital Signs Date Time Temp Pulse Resp B/P Pulse Ox O2 Delivery O2 Flow Rate FiO2 07/03/17 16:20 57 07/03/17 15:01 97.7 20 138/63 100 07/03/17 07:27 Nasal Cannula 2.0 07/03/17 03:35 28 Intake and Output 07/02/17 07/02/17 07/03/17 15:00 23:00 07:00 Intake Total 550 ml 720 ml 70 ml Output Total 2500 ml Balance -1950 ml 720 ml 70 ml Exam Neck: supple Respiratory: clear to auscultation Cardiovascular: regular rate and rhythm Gastrointestinal: bowel sounds (+), soft Musculoskeletal: nl extremities to inspection Extremities: edema (+) Results Result Diagram: 07/03/17 0602 07/03/17 0602 Results 24 hrs Laboratory Tests Test 07/02/17 21:58 07/03/17 06:02 07/03/17 07:18 07/03/17 11:44 Bedside Glucose 117 104 92 White Blood Count 4.8 Red Blood Count 3.59 L Hemoglobin 11.2 L Hematocrit 38.2 Mean Corpuscular Volume 106.4 H Mean Corpuscular Hemoglobin 31.2 Mean Corpuscular Hemoglobin Concent 29.3 L Red Cell Distribution Width 15.0 H Platelet Count 82 L Mean Platelet Volume 11.8 H Neutrophils % 77.1 H Lymphocytes % 12.2 L Monocytes % 7.8 Eosinophils % 1.9 Basophils % 0.6 Nucleated Red Blood Cells % 0.0 Neutrophils # 3.7 Lymphocytes # 0.6 L Monocytes # 0.4 Eosinophils # 0.1 Basophils # 0.0 Nucleated Red Blood Cells # 0.0 Sodium Level 145 H Potassium Level 4.3 Chloride Level 111 H Carbon Dioxide Level 29 Anion Gap 9 Blood Urea Nitrogen 20 Creatinine 3.18 #H Glucose Level 86 Calcium Level 10.2 Test 07/03/17 16:54 Bedside Glucose 96 Medications Medications Current Medications Aspirin (Halfprin) 81 mg DAILY PO Last administered on 07/03/17 08:43; Admin Dose 81 MG; Start 06/29/17 at 09:00 Atorvastatin Calcium (Lipitor) 40 mg QHS PO Last administered on 07/02/17 20: 48; Admin Dose 40 MG; Start 06/28/17 at 21:00 Phenol (Cepastat Lozenge) 1 lozenge Q4 PRN PO COUGH; Start 06/28/17 at 20:00 Carvedilol (Coreg) 12.5 mg BID PO Last administered on 07/03/17 08:43; Admin Dose 12.5 MG; Start 06/28/17 at 21:00 Clonidine HCl (Catapres-Tts 3 Patch) 1 patch Q7D TRANSDERM Last administered on 06/29/17 06:40; Admin Dose 1 PATCH; Start 06/28/17 at 20:00 Docusate Sodium (Colace) 100 mg BID PO Last administered on 07/03/17 08:43; Admin Dose 100 MG; Start 06/28/17 at 21:00 Folic Acid (Folic Acid) 1 mg DAILY PO Last administered on 07/03/17 08:43; Admin Dose 1 MG; Start 06/29/17 at 09:00 Hydralazine HCl (Apresoline) 100 mg TID PO Last administered on 07/03/17 12:09 ; Admin Dose 100 MG; Start 06/28/17 at 21:00 Hydroxyzine HCl (Atarax) 25 mg Q6H PRN PO ITCHING; Start 06/28/17 at 20:00 Multivit/Ca Carb/ B Cmplx/FA/Prenat (Sofy-Cooper) 1 tab DAILY PO Last administered on 07/03/17 08:43; Admin Dose 1 TAB; Start 06/28/17 at 20:00 Nifedipine (Procardia Xl) 60 mg BID PO Last administered on 07/03/17 08:42; Admin Dose 60 MG; Start 06/28/17 at 21:00 Senna (Senokot) 1 tab DAILY PO Last administered on 07/03/17 08:43; Admin Dose 1 TAB; Start 06/29/17 at 09:00 Ondansetron HCl (Zofran Inj) 4 mg Q6H PRN IV NAUSEA AND/OR VOMITING Last administered on 06/29/17 16:30; Admin Dose 4 MG; Start 06/28/17 at 20:00 Nitroglycerin (Nitroglycerin (Sl Tab) 0.4 Mg) 1 tab Q5M PRN SL CHEST PAIN; Start 06/28/17 at 20:00 Acetaminophen (Tylenol Tab) 650 mg Q6H PRN PO PAIN LEVEL 1-3 OR FEVER Last administered on 07/02/17 13:00; Admin Dose 650 MG; Start 06/28/17 at 20:00 Acetaminophen/ Hydrocodone Bitart ([place] (5/325)) 1 tab Q6H PRN PO PAIN LEVEL 4 -6; Start 06/28/17 at 20:00 Morphine Sulfate (morphine) 2 mg Q4H PRN IV PAIN LEVEL 7-10 Last administered on 06/29/17 16:29; Admin Dose 2 MG; Start 06/28/17 at 20:00 Docusate Sodium (Colace) 100 mg Q12H PRN PO CONSTIPATION; Start 06/28/17 at 20: 00 Magnesium Hydroxide (Milk Of Mag) 30 ml DAILY PRN PO CONSTIPATION; Start at 20:00 Bisacodyl (Dulcolax Supp) 10 mg DAILY PRN [place] CONSTIPATION; Start 06/28/17 at 20 :00 Famotidine 10 mg 10 mg Q48H PO Last administered on 07/02/17 20:49; Admin Dose 10 MG; Start 06/28/17 at 21:00 Sodium Chloride (NS) 1,000 ml @ 0 mls/hr Q0M PRN IV TO KEEP SBP ABOVE 90; Start 06/28/17 at 20:01 Hydralazine HCl (Apresoline) 10 mg Q4H PRN IV ELEVATED BLOOD PRESSURE Last administered on 07/03/17 03:11; Admin Dose 10 MG; Start 06/29/17 at 09:30 Heparin Sodium (Porcine) (Heparin (5000 Units/0.5 ml)) 5,000 unit BID SC Last administered on 07/03/17 08:49; Admin Dose 5,000 UNIT; Start 06/29/17 at 12:00 Mupirocin 1 applic 1 applic BID TOP Last administered on 07/03/17 08:49; Admin Dose 1 APPLIC; Start 06/30/17 at 12:00 Piperacillin Sod/ Tazobactam Sod (Zosyn 2.25gm/ 50ml (Pmx)) 50 ml @ 100 mls/hr Q8 IVPB Last administered on 07/03/17 14:09; Admin Dose 100 MLS/HR; Start at 14:00 Lisinopril (Zestril) 10 mg DAILY PO Last administered on 07/03/17 08:42; Admin Dose 10 MG; Start 07/02/17 at 11:00 GLENNY RACHEL MD Jul 03, 2017 19:33
--- NOTE | 2017-07-03 19:51 | PN ---
Date/Time of Note Date/Time of Note DATE: 07/03/17 TIME: 19:47 Assessment/Plan VTE Prophylaxis VTE Prophylaxis Intervention: heparin Lines/Catheters IV C[facility]ter Type (from [facility]): Saline Lock Urinary Cath still in place: No Assessment/Plan Chief Complaint/Hosp Course 1. Severe encephalopathy, patient was almost comatose on presentation with systolic blood pressures in the 200s. Mental status keeps improving but does continue to being confused CAT scan of the head followed by MRI of the brain are both negative for acute injury. Ammonia within normal Controlling blood pressure with IV medications and transdermal patches, continue clonidine patch, continue nifedipine and have started lisinopril Speech reevaluation done and patient started on a p.o. diet Glucose stable on D5 drip until able to take p.o. Continue to monitor neurologically. 2. Severe protein malnutrition, weight loss decreased p.o. intake, episodes of vomiting 1 day of admission CAT scan of the abdomen and pelvis with findings possibly consistent with mild colitis, continue Zosyn. She is DNR, according to the daughter they do not wish to put a feeding tube. 3. Malignant hypertension-BP now improved -Continue current regimen, have added lisinopril - clonidine patch on board 4. End-stage renal disease, on hemodialysis now per schedule 5. Right tibial fracture, subacute to chronic, cast in place. Follow-up with orthopedic surgery as an outpatient. 6. Enterococcus positive blood culture 2, ampicillin sensitive, repeat blood cultures NGTD Continue Zosyn 7. Mild troponin elevation, in setting of hemodialysis patient, hypertensive emergency on admission. Patient was seen at [facility] a few days ago where she was reported to also have slightly elevated troponin at 0.068 which was deemed to be related to her renal disease. Apparently she did have an echocardiogram but there is no dictation or reading as far as we know. Troponin is slightly elevated here up and remains around 0.16.. Patient is asymptomatic. Echo shows a preserved EF with severe LVH Prophylaxis: Heparin subcu for DVT prophylaxis, Pepcid for GI prophylaxis Disposition: Dialysis per nephrology, Zosyn for enterococcus bacteremia and possible mild colitis on CAT scan, continue BP control, anticipate DC 1-2 days Problems: Subjective 24 Hr Interval Summary Constitutional: disoriented Exam/Review of Systems Vital Signs Vitals Vital Signs Date Time Temp Pulse Resp B/P Pulse Ox O2 Delivery O2 Flow Rate FiO2 07/03/17 16:20 57 07/03/17 15:01 97.7 20 138/63 100 07/03/17 07:27 Nasal Cannula 2.0 07/03/17 03:35 28 Intake and Output 07/02/17 07/02/17 07/03/17 15:00 23:00 07:00 Intake Total 550 ml 720 ml 70 ml Output Total 2500 ml Balance -1950 ml 720 ml 70 ml Exam Psych: confusion Respiratory: clear to auscultation Cardiovascular: regular rate and rhythm Gastrointestinal: soft, No distended Musculoskeletal: nl extremities to inspection Results Result Diagram: 07/03/17 0602 07/03/17 0602 Results 24 hrs Laboratory Tests Test 07/02/17 21:58 07/03/17 06:02 07/03/17 07:18 07/03/17 11:44 Bedside Glucose 117 104 92 White Blood Count 4.8 Red Blood Count 3.59 L Hemoglobin 11.2 L Hematocrit 38.2 Mean Corpuscular Volume 106.4 H Mean Corpuscular Hemoglobin 31.2 Mean Corpuscular Hemoglobin Concent 29.3 L Red Cell Distribution Width 15.0 H Platelet Count 82 L Mean Platelet Volume 11.8 H Neutrophils % 77.1 H Lymphocytes % 12.2 L Monocytes % 7.8 Eosinophils % 1.9 Basophils % 0.6 Nucleated Red Blood Cells % 0.0 Neutrophils # 3.7 Lymphocytes # 0.6 L Monocytes # 0.4 Eosinophils # 0.1 Basophils # 0.0 Nucleated Red Blood Cells # 0.0 Sodium Level 145 H Potassium Level 4.3 Chloride Level 111 H Carbon Dioxide Level 29 Anion Gap 9 Blood Urea Nitrogen 20 Creatinine 3.18 #H Glucose Level 86 Calcium Level 10.2 Test 07/03/17 16:54 Bedside Glucose 96 Medications Medications Current Medications Aspirin (Halfprin) 81 mg DAILY PO Last administered on 07/03/17 08:43; Admin Dose 81 MG; Start 06/29/17 at 09:00 Atorvastatin Calcium (Lipitor) 40 mg QHS PO Last administered on 07/02/17 20: 48; Admin Dose 40 MG; Start 06/28/17 at 21:00 Phenol (Cepastat Lozenge) 1 lozenge Q4 PRN PO COUGH; Start 06/28/17 at 20:00 Carvedilol (Coreg) 12.5 mg BID PO Last administered on 07/03/17 08:43; Admin Dose 12.5 MG; Start 06/28/17 at 21:00 Clonidine HCl (Catapres-Tts 3 Patch) 1 patch Q7D TRANSDERM Last administered on 06/29/17 06:40; Admin Dose 1 PATCH; Start 06/28/17 at 20:00 Docusate Sodium (Colace) 100 mg BID PO Last administered on 07/03/17 08:43; Admin Dose 100 MG; Start 06/28/17 at 21:00 Folic Acid (Folic Acid) 1 mg DAILY PO Last administered on 07/03/17 08:43; Admin Dose 1 MG; Start 06/29/17 at 09:00 Hydralazine HCl (Apresoline) 100 mg TID PO Last administered on 07/03/17 12:09 ; Admin Dose 100 MG; Start 06/28/17 at 21:00 Hydroxyzine HCl (Atarax) 25 mg Q6H PRN PO ITCHING; Start 06/28/17 at 20:00 Multivit/Ca Carb/ B Cmplx/FA/Prenat (Sofy-Cooper) 1 tab DAILY PO Last administered on 07/03/17 08:43; Admin Dose 1 TAB; Start 06/28/17 at 20:00 Nifedipine (Procardia Xl) 60 mg BID PO Last administered on 07/03/17 08:42; Admin Dose 60 MG; Start 06/28/17 at 21:00 Senna (Senokot) 1 tab DAILY PO Last administered on 07/03/17 08:43; Admin Dose 1 TAB; Start 06/29/17 at 09:00 Ondansetron HCl (Zofran Inj) 4 mg Q6H PRN IV NAUSEA AND/OR VOMITING Last administered on 06/29/17 16:30; Admin Dose 4 MG; Start 06/28/17 at 20:00 Nitroglycerin (Nitroglycerin (Sl Tab) 0.4 Mg) 1 tab Q5M PRN SL CHEST PAIN; Start 06/28/17 at 20:00 Acetaminophen (Tylenol Tab) 650 mg Q6H PRN PO PAIN LEVEL 1-3 OR FEVER Last administered on 07/02/17 13:00; Admin Dose 650 MG; Start 06/28/17 at 20:00 Acetaminophen/ Hydrocodone Bitart ([place] (5/325)) 1 tab Q6H PRN PO PAIN LEVEL 4 -6; Start 06/28/17 at 20:00 Morphine Sulfate (morphine) 2 mg Q4H PRN IV PAIN LEVEL 7-10 Last administered on 06/29/17 16:29; Admin Dose 2 MG; Start 06/28/17 at 20:00 Docusate Sodium (Colace) 100 mg Q12H PRN PO CONSTIPATION; Start 06/28/17 at 20: 00 Magnesium Hydroxide (Milk Of Mag) 30 ml DAILY PRN PO CONSTIPATION; Start at 20:00 Bisacodyl (Dulcolax Supp) 10 mg DAILY PRN [place] CONSTIPATION; Start 06/28/17 at 20 :00 Famotidine 10 mg 10 mg Q48H PO Last administered on 07/02/17 20:49; Admin Dose 10 MG; Start 06/28/17 at 21:00 Sodium Chloride (NS) 1,000 ml @ 0 mls/hr Q0M PRN IV TO KEEP SBP ABOVE 90; Start 06/28/17 at 20:01 Hydralazine HCl (Apresoline) 10 mg Q4H PRN IV ELEVATED BLOOD PRESSURE Last administered on 07/03/17 03:11; Admin Dose 10 MG; Start 06/29/17 at 09:30 Heparin Sodium (Porcine) (Heparin (5000 Units/0.5 ml)) 5,000 unit BID SC Last administered on 07/03/17 08:49; Admin Dose 5,000 UNIT; Start 06/29/17 at 12:00 Mupirocin 1 applic 1 applic BID TOP Last administered on 07/03/17 08:49; Admin Dose 1 APPLIC; Start 06/30/17 at 12:00 Piperacillin Sod/ Tazobactam Sod (Zosyn 2.25gm/ 50ml (Pmx)) 50 ml @ 100 mls/hr Q8 IVPB Last administered on 07/03/17 14:09; Admin Dose 100 MLS/HR; Start at 14:00 Lisinopril (Zestril) 10 mg DAILY PO Last administered on 07/03/17 08:42; Admin Dose 10 MG; Start 07/02/17 at 11:00 SUSAN FALL Jul 03, 2017 19:51
[2017-07-03] MEDS: ATORVASTATIN 40 MG TAB PO SCH (20:43)
[2017-07-04] VITALS (20 sets, daily range): BP systolic 117–198; BP diastolic 57–98; PULSE 54–86; RESP 16–20
[2017-07-04] MEDS: hydrALAzine 20 MG INJ IV PRN ×2 (00:42→04:08)
[2017-07-04] MEDS: PIPER-TAZO 2.25 GM (PMX) 50 ML IVPB SCH ×3 (05:19→23:19)
[2017-07-04] MEDS: LISINOPRIL 10 MG TAB PO SCH (05:19)
[2017-07-04 07:25] LABS: ABNORMAL IP MESSAGE 1; EOSINOPHILS # 0.1 10^3/ul (0.0-0.5); EOSINOPHILS % 2.8 % (0.0-7.0); HEMATOCRIT 38.4 % (37.0-47.0); HEMOGLOBIN 11.5 g/dl (12.0-16.0); LYMPHOCYTES # 0.7 10^3/ul (0.8-2.9); LYMPHOCYTES % 16.7 % (15.0-51.0); MEAN CORPUSCULAR HEMOGLOBIN 32.3 pg (29.0-33.0); MEAN CORPUSCULAR HGB CONC 29.9 g/dl (32.0-37.0); MEAN CORPUSCULAR VOLUME 107.9 fl (82.0-101.0); MEAN PLATELET VOLUME 12.2 fl (7.4-10.4); MONOCYTE # 0.3 10^3/ul (0.3-0.9); MONOCYTES % 8.7 % (0.0-11.0); NEUTROPHIL # 2.7 10^3/ul (1.6-7.5); NEUTROPHILS % 70.5 % (39.0-77.0); PLATELET COUNT 89 10^3/UL (140-415); POSITIVE DIFF @See below; RED BLOOD COUNT 3.56 10^6/ul (4.20-5.40); RED CELL DISTRIBUTION WIDTH 15.1 % (11.5-14.5); WHITE BLOOD COUNT 3.9 10^3/ul (4.8-10.8)
[2017-07-04 07:49] LABS: CALCIUM 10.2 mg/dl (8.4-10.2); CREATININE 3.66 mg/dl (0.44-1.00)
[2017-07-04] MEDS: SEVELAMER CARBONATE 0.8 GM PKT PO SCH ×3 (07:55→16:32)
[2017-07-04] MEDS: PANTOPRAZOLE (EC) 40 MG TAB PO SCH (08:16)
[2017-07-04] MEDS: ASPIRIN (EC) 81 MG TAB PO SCH (08:16)
[2017-07-04] MEDS: SENNA TAB PO SCH (08:16)
[2017-07-04] MEDS: FOLIC ACID 1 MG TAB PO SCH (08:16)
[2017-07-04] MEDS: DOCUSATE SODIUM 100 MG CAP PO SCH ×2 (08:16→20:55)
[2017-07-04] MEDS: MULTIVIT/CA CARB/B CMPLX/FA TAB PO SCH (08:16)
[2017-07-04] MEDS: ACCU-CHEK XX SCH ×4 (08:16→21:00)
[2017-07-04] MEDS: HEPARIN 5,000 UNIT/0.5 ML VIAL SC SCH ×2 (08:45→21:06)
[2017-07-04] MEDS: NIFEdipine (XL) 60 MG TAB PO SCH ×2 (09:00→20:56)
--- NOTE | 2017-07-04 11:16 | CONS ---
Date/Time of Note Date/Time of Note DATE: 07/04/17 TIME: 11:08 Assessment/Plan Assessment/Plan Chief Complaint/Hosp Course 86 y/o with 1. Encephalopathy likely metabolic 2. Malignant HTN 3. Positive troponin. 4. [id number] myocardial infarction. 5. Malnutrition. 6. Hypoalbuminemia. 7. Protein-calorie malnutrition with CT A+P with infectious/ischemia/ inflammatory colitis 8. End-stage renal disease ON HD M/W//F 9. Right tibial fracture, has a cast on. 10. Hypertension. 11. Sepsis with Enterococcus bacterimia on zosyn Recs - HD today, Pre HD BP was SBP 190 and now towards the end is SBP 117 - Hold BP meds before each HD session - on Coreg 12.5 bid , Hydralzine 100 tid, Nifedipine 60 mg, Clonidine patch and Lisnopril was added - on zosyn - Pain control - GI/DVT prophylaxsis Problems: Consultation Date/Type/Reason Admit Date/Time Jun 28, 2017 at 17:52 Initial Consult Date Type of Consultation: RENAL 24 HR Interval Summary Free Text/Dictation SBP> 190 yesterday ,but at HD SBP 117 Oriented x1 Exam/Review of Systems Vital Signs Vitals Vital Signs Date Time Temp Pulse Resp B/P Pulse Ox O2 Delivery O2 Flow Rate FiO2 07/04/17 10:20 78 18 07/04/17 07:12 97.5 195/91 96 07/03/17 23:41 Nasal Cannula 2.0 07/03/17 03:35 28 Intake and Output 07/03/17 07/03/17 07/04/17 15:00 23:00 07:00 Intake Total 50 ml 530 ml 110 ml Balance 50 ml 530 ml 110 ml Exam Gen:Awake, alert Neck:supple Lungs:clear CVS:Regular rate and rthym Abdomen:soft, non tender ext: in cast Access: rt permacath, left AV graft clotted Results Result Diagram: 07/04/1762107/04/17621 Results 24 hrs Laboratory Tests Test 07/03/17 11:44 07/03/17 16:54 07/03/17 21:11 07/04/17 06:22 Bedside Glucose 92 96 100 White Blood Count 3.9 L Red Blood Count 3.56 L Hemoglobin 11.5 L Hematocrit 38.4 Mean Corpuscular Volume 107.9 H Mean Corpuscular Hemoglobin 32.3 Mean Corpuscular Hemoglobin Concent 29.9 L Red Cell Distribution Width 15.1 H Platelet Count 89 L Mean Platelet Volume 12.2 H Neutrophils % 70.5 Lymphocytes % 16.7 Monocytes % 8.7 Eosinophils % 2.8 Basophils % 1.0 Nucleated Red Blood Cells % 0.0 Neutrophils # 2.7 Lymphocytes # 0.7 L Monocytes # 0.3 Eosinophils # 0.1 Basophils # 0.0 Nucleated Red Blood Cells # 0.0 Sodium Level 141 Potassium Level 5.0 Chloride Level 109 Carbon Dioxide Level 25 Anion Gap 12 Blood Urea Nitrogen 27 H Creatinine 3.66 H Glucose Level 78 Calcium Level 10.2 Test 07/04/17 08:15 Bedside Glucose 72 Medications Medications Current Medications Aspirin (Halfprin) 81 mg DAILY PO Last administered on 07/04/17 08:16; Admin Dose 81 MG; Start 06/29/17 at 09:00 Atorvastatin Calcium (Lipitor) 40 mg QHS PO Last administered on 07/03/17 20: 43; Admin Dose 40 MG; Start 06/28/17 at 21:00 Phenol (Cepastat Lozenge) 1 lozenge Q4 PRN PO COUGH; Start 06/28/17 at 20:00 Carvedilol (Coreg) 12.5 mg BID PO Last administered on 07/03/17 20:44; Admin Dose 12.5 MG; Start 06/28/17 at 21:00 Clonidine HCl (Catapres-Tts 3 Patch) 1 patch Q7D TRANSDERM Last administered on 06/29/17 06:40; Admin Dose 1 PATCH; Start 06/28/17 at 20:00 Docusate Sodium (Colace) 100 mg BID PO Last administered on 07/04/17 08:16; Admin Dose 100 MG; Start 06/28/17 at 21:00 Folic Acid (Folic Acid) 1 mg DAILY PO Last administered on 07/04/17 08:16; Admin Dose 1 MG; Start 06/29/17 at 09:00 Hydralazine HCl (Apresoline) 100 mg TID PO Last administered on 07/03/17 20:45 ; Admin Dose 100 MG; Start 06/28/17 at 21:00 Hydroxyzine HCl (Atarax) 25 mg Q6H PRN PO ITCHING; Start 06/28/17 at 20:00 Multivit/Ca Carb/ B Cmplx/FA/Prenat (Sofy-Cooper) 1 tab DAILY PO Last administered on 07/04/17 08:16; Admin Dose 1 TAB; Start 06/28/17 at 20:00 Nifedipine (Procardia Xl) 60 mg BID PO Last administered on 07/03/17 20:44; Admin Dose 60 MG; Start 06/28/17 at 21:00 Senna (Senokot) 1 tab DAILY PO Last administered on 07/04/17 08:16; Admin Dose 1 TAB; Start 06/29/17 at 09:00 Ondansetron HCl (Zofran Inj) 4 mg Q6H PRN IV NAUSEA AND/OR VOMITING Last administered on 06/29/17 16:30; Admin Dose 4 MG; Start 06/28/17 at 20:00 Nitroglycerin (Nitroglycerin (Sl Tab) 0.4 Mg) 1 tab Q5M PRN SL CHEST PAIN; Start 06/28/17 at 20:00 Acetaminophen (Tylenol Tab) 650 mg Q6H PRN PO PAIN LEVEL 1-3 OR FEVER Last administered on 07/02/17 13:00; Admin Dose 650 MG; Start 06/28/17 at 20:00 Acetaminophen/ Hydrocodone Bitart ([place] (5/325)) 1 tab Q6H PRN PO PAIN LEVEL 4 -6; Start 06/28/17 at 20:00 Morphine Sulfate (morphine) 2 mg Q4H PRN IV PAIN LEVEL 7-10 Last administered on 06/29/17 16:29; Admin Dose 2 MG; Start 06/28/17 at 20:00 Docusate Sodium (Colace) 100 mg Q12H PRN PO CONSTIPATION; Start 06/28/17 at 20: 00 Magnesium Hydroxide (Milk Of Mag) 30 ml DAILY PRN PO CONSTIPATION; Start at 20:00 Bisacodyl (Dulcolax Supp) 10 mg DAILY PRN [place] CONSTIPATION; Start 06/28/17 at 20 :00 Famotidine 10 mg 10 mg Q48H PO Last administered on 07/02/17 20:49; Admin Dose 10 MG; Start 06/28/17 at 21:00 Sodium Chloride (NS) 1,000 ml @ 0 mls/hr Q0M PRN IV TO KEEP SBP ABOVE 90; Start 06/28/17 at 20:01 Heparin Sodium (Porcine) (Heparin (5000 Units/0.5 ml)) 5,000 unit BID SC Last administered on 07/04/17 08:45; Admin Dose 5,000 UNIT; Start 06/29/17 at 12:00 Mupirocin 1 applic 1 applic BID TOP Last administered on 07/03/17 20:45; Admin Dose 1 APPLIC; Start 06/30/17 at 12:00 Piperacillin Sod/ Tazobactam Sod (Zosyn 2.25gm/ 50ml (Pmx)) 50 ml @ 100 mls/hr Q8 IVPB Last administered on 07/04/17 05:19; Admin Dose 100 MLS/HR; Start at 14:00 Lisinopril (Zestril) 10 mg DAILY PO Last administered on 07/04/17 05:19; Admin Dose 10 MG; Start 07/02/17 at 11:00 Hydralazine HCl (Apresoline) 20 mg Q6H PRN IV ELEVATED BLOOD PRESSURE; Start at 07:00 ISRAEL MURILLO MD Jul 04, 2017 11:15
[2017-07-04] MEDS: MUPIROCIN 2% 22 GM OINT TOP SCH ×2 (11:37→20:57)
--- NOTE | 2017-07-04 14:25 | PDOCDIS ---
Discharge Instructions CONDITION Patient Condition: Stable HOME CARE INSTRUCTIONS: Special Diet: PUREE ACTIVITY: Activity Restrictions: Slowly Increase Activity FOLLOW UP/APPOINTMENTS Follow-up Plan Follow up with outpatient HD schedule Follow up with PCP/Dr Young at [facility] regarding blood pressure medication management and adjustments. KEON LOVE Jul 04, 2017 14:25
--- NOTE | 2017-07-04 14:47 | PN ---
Date/Time of Note Date/Time of Note DATE: 07/04/17 TIME: 14:41 Assessment/Plan VTE Prophylaxis VTE Prophylaxis Intervention: heparin Lines/Catheters IV [facility]from [facility] Saline Lock Urinary Cath still in place: No Assessment/Plan Assessment/Plan 86-year-old female with: 1. Severe encephalopathy, patient was almost comatose on presentation with systolic blood pressures in the 200s. Mental status much improved, currently a little lethargic postdialysis today. Primarily Irish speaking. CAT scan of the head followed by MRI of the brain are both negative for acute injury. Ammonia within normal Blood pressure better control especially postdialysis today. On pure Diet and blood sugar stable. Discharge planning back to fdc facility. 2. Severe protein malnutrition, weight loss decreased p.o. intake, episodes of vomiting 1 day of admission CAT scan of the abdomen and pelvis with findings possibly consistent with mild colitis, change to Augmentin. She is DNR, according to the daughter they do not wish to put a feeding tube. Resume home medications. We will put on Augmentin for 5 more days. 3. Malignant hypertension, episode of hypertensive urgency on admission. Blood pressure better controlled this morning to dialysis. Systolic blood pressure in the 190s predialysis, all blood pressure medication held, postdialysis systolic blood pressure down to 110's Clonidine patch, carvedilol, nifedipine, hydralazine and lisinopril added. 4. End-stage renal disease, on hemodialysis now per schedule 5. Right tibial fracture, subacute to chronic, cast in place. Follow-up with orthopedic surgery as an outpatient. 6. Enterococcus positive blood culture 2, ampicillin sensitive, repeat blood cultures NGTD. We will discharge on Augmentin for 5 more days. 7. Mild troponin elevation, in setting of hemodialysis patient, hypertensive emergency on admission. Patient was seen at [facility] a few days ago where she was reported to also have slightly elevated troponin at 0.068 which was deemed to be related to her renal disease. Apparently she did have an echocardiogram but there is no dictation or reading as far as we know. Troponin is slightly elevated here up and remains around 0.16.. Patient is fairly in some asymptomatic. Appreciate cardiology evaluation and recommendation, continue conservative management, continue blood pressure control. 8. Atrial fibrillation, new onset more or less, patient on amiodarone drip this afternoon per cardiology. Will monitor electrolytes in a.m., probably to convert to oral amiodarone tomorrow. Prophylaxis: Heparin subcu for DVT prophylaxis, Pepcid for GI prophylaxis Disposition: Dialysis per nephrology, [place] for enterococcus bacteremia and possible mild colitis on CAT scan. Patient has better blood pressure control especially after dialysis. Discharge planning in the next 24-48 hours back to fdc facility if heart rate and blood pressure stable. Subjective 24 Hr Interval Summary Free Text/Dictation Patient lethargic today postdialysis, of note it is noted that she went into atrial fibrillation yesterday briefly converted back to sinus rhythm but has been in atrial fibrillation all afternoon today, Dr. Miller will be starting the patient on amiodarone. Exam/Review of Systems Vital Signs Vitals Vital Signs Date Time Temp Pulse Resp B/P Pulse Ox O2 Delivery O2 Flow Rate FiO2 07/04/17 12:02 56 07/04/17 11:36 98.3 16 117/57 97 07/03/17 23:41 Nasal Cannula 2.0 07/03/17 03:35 28 Intake and Output 07/03/17 07/03/17 07/04/17 14:59 22:59 06:59 Intake Total 50 ml 530 ml 110 ml Balance 50 ml 530 ml 110 ml Exam Constitutional: alert, frail, oriented Respiratory: clear to auscultation, normal air movement Cardiovascular: nl pulses, regular rate and rhythm Gastrointestinal: non-tender, soft Musculoskeletal: other (Right lower extremity in cast with known right tibial fracture) Extremities: normal pulses, other (No edema, clubbing or cyanosis) Neurological: [employer] II-XII intact, lethargic, other (Irish speaking, generalized weakness. Nonweightbearing right lower extremity.) Results Result Diagram: 07/04/1762107/04/17621 Results 24 hrs Laboratory Tests Test 07/03/17 16:54 07/03/17 21:11 07/04/17 06:22 07/04/17 08:15 Bedside Glucose 96 100 72 White Blood Count 3.9 L Red Blood Count 3.56 L Hemoglobin 11.5 L Hematocrit 38.4 Mean Corpuscular Volume 107.9 H Mean Corpuscular Hemoglobin 32.3 Mean Corpuscular Hemoglobin Concent 29.9 L Red Cell Distribution Width 15.1 H Platelet Count 89 L Mean Platelet Volume 12.2 H Neutrophils % 70.5 Lymphocytes % 16.7 Monocytes % 8.7 Eosinophils % 2.8 Basophils % 1.0 Nucleated Red Blood Cells % 0.0 Neutrophils # 2.7 Lymphocytes # 0.7 L Monocytes # 0.3 Eosinophils # 0.1 Basophils # 0.0 Nucleated Red Blood Cells # 0.0 Sodium Level 141 Potassium Level 5.0 Chloride Level 109 Carbon Dioxide Level 25 Anion Gap 12 Blood Urea Nitrogen 27 H Creatinine 3.66 H Glucose Level 78 Calcium Level 10.2 Test 07/04/17 11:46 Bedside Glucose 139 Medications Medications Current Medications Aspirin (Halfprin) 81 mg DAILY PO Last administered on 07/04/17 08:16; Admin Dose 81 MG; Start 06/29/17 at 09:00 Atorvastatin Calcium (Lipitor) 40 mg QHS PO Last administered on 07/03/17 20: 43; Admin Dose 40 MG; Start 06/28/17 at 21:00 Phenol (Cepastat Lozenge) 1 lozenge Q4 PRN PO COUGH; Start 06/28/17 at 20:00 Carvedilol (Coreg) 12.5 mg BID PO Last administered on 07/03/17 20:44; Admin Dose 12.5 MG; Start 06/28/17 at 21:00 Clonidine HCl (Catapres-Tts 3 Patch) 1 patch Q7D TRANSDERM Last administered on 06/29/17 06:40; Admin Dose 1 PATCH; Start 06/28/17 at 20:00 Docusate Sodium (Colace) 100 mg BID PO Last administered on 07/04/17 08:16; Admin Dose 100 MG; Start 06/28/17 at 21:00 Folic Acid (Folic Acid) 1 mg DAILY PO Last administered on 07/04/17 08:16; Admin Dose 1 MG; Start 06/29/17 at 09:00 Hydralazine HCl (Apresoline) 100 mg TID PO Last administered on 07/04/17 14:13 ; Admin Dose 100 MG; Start 06/28/17 at 21:00 Hydroxyzine HCl (Atarax) 25 mg Q6H PRN PO ITCHING; Start 06/28/17 at 20:00 Multivit/Ca Carb/ B Cmplx/FA/Prenat (Sofy-Cooper) 1 tab DAILY PO Last administered on 07/04/17 08:16; Admin Dose 1 TAB; Start 06/28/17 at 20:00 Nifedipine (Procardia Xl) 60 mg BID PO Last administered on 07/03/17 20:44; Admin Dose 60 MG; Start 06/28/17 at 21:00 Senna (Senokot) 1 tab DAILY PO Last administered on 07/04/17 08:16; Admin Dose 1 TAB; Start 06/29/17 at 09:00 Ondansetron HCl (Zofran Inj) 4 mg Q6H PRN IV NAUSEA AND/OR VOMITING Last administered on 06/29/17 16:30; Admin Dose 4 MG; Start 06/28/17 at 20:00 Nitroglycerin (Nitroglycerin (Sl Tab) 0.4 Mg) 1 tab Q5M PRN SL CHEST PAIN; Start 06/28/17 at 20:00 Acetaminophen (Tylenol Tab) 650 mg Q6H PRN PO PAIN LEVEL 1-3 OR FEVER Last administered on 07/02/17 13:00; Admin Dose 650 MG; Start 06/28/17 at 20:00 Acetaminophen/ Hydrocodone Bitart ([place] (5/325)) 1 tab Q6H PRN PO PAIN LEVEL 4 -6 Last administered on 07/04/17 11:36; Admin Dose 1 TAB; Start 06/28/17 at 20: 00 Morphine Sulfate (morphine) 2 mg Q4H PRN IV PAIN LEVEL 7-10 Last administered on 06/29/17 16:29; Admin Dose 2 MG; Start 06/28/17 at 20:00 Docusate Sodium (Colace) 100 mg Q12H PRN PO CONSTIPATION; Start 06/28/17 at 20: 00 Magnesium Hydroxide (Milk Of Mag) 30 ml DAILY PRN PO CONSTIPATION; Start at 20:00 Bisacodyl (Dulcolax Supp) 10 mg DAILY PRN [place] CONSTIPATION; Start 06/28/17 at 20 :00 Famotidine 10 mg 10 mg Q48H PO Last administered on 07/02/17 20:49; Admin Dose 10 MG; Start 06/28/17 at 21:00 Sodium Chloride (NS) 1,000 ml @ 0 mls/hr Q0M PRN IV TO KEEP SBP ABOVE 90; Start 06/28/17 at 20:01 Heparin Sodium (Porcine) (Heparin (5000 Units/0.5 ml)) 5,000 unit BID SC Last administered on 07/04/17 08:45; Admin Dose 5,000 UNIT; Start 06/29/17 at 12:00 Mupirocin 1 applic 1 applic BID TOP Last administered on 07/04/17 11:37; Admin Dose 1 APPLIC; Start 06/30/17 at 12:00 Piperacillin Sod/ Tazobactam Sod (Zosyn 2.25gm/ 50ml (Pmx)) 50 ml @ 100 mls/hr Q8 IVPB Last administered on 07/04/17 14:13; Admin Dose 100 MLS/HR; Start at 14:00 Lisinopril (Zestril) 10 mg DAILY PO Last administered on 07/04/17 05:19; Admin Dose 10 MG; Start 07/02/17 at 11:00 Hydralazine HCl (Apresoline) 20 mg Q6H PRN IV ELEVATED BLOOD PRESSURE; Start at 07:00 KEON LOVE Jul 04, 2017 14:47
[2017-07-04] MEDS: AMIODARONE 200 MG TAB PO ONE ×2 (15:36→16:32)
--- NOTE | 2017-07-04 15:38 | CONS ---
Date/Time of Note Date/Time of Note DATE: 07/04/17 TIME: 15:33 Assessment/Plan Assessment/Plan Additional Assessment/Plan Hypertensive emergency with elevated troponin Acute decompensated diastolic congestive heart failure End-stage renal disease on hemodialysis with volume overload History of hypertension Severe left ventricular hypertrophy with preserved ejection fraction Encephalopathy, improved Paroxysmal atrial fibrillation Medical uncomplaince -Patient with atrial fibrillation since this afternoon, heart rate is controlled , will start amiodarone to help convert back to sinus rhythm given recent. Patient status post hemodialysis with improvement in blood pressure. Of importance is compliant with medications. Consultation Date/Type/Reason Admit Date/Time Jun 28, 2017 at 17:52 Initial Consult Date Type of Consultation: cv 24 HR Interval Summary Free Text/Dictation Patient seen and examined, daughter at bedside. In discussion, patient with known noncompliance with medications Exam/Review of Systems Vital Signs Vitals Vital Signs Date Time Temp Pulse Resp B/P Pulse Ox O2 Delivery O2 Flow Rate FiO2 07/04/17 15:30 98.7 62 16 146/68 96 07/03/17 23:41 Nasal Cannula 2.0 07/03/17 03:35 28 Intake and Output 07/03/17 07/03/17 07/04/17 15:00 23:00 07:00 Intake Total 50 ml 530 ml 110 ml Balance 50 ml 530 ml 110 ml Exam Constitutional: alert (Intermittently following commands, no apparent distress , daughter at bedside), frail Head: normocephalic Respiratory: other (Coarse breath sounds bilaterally, no wheezing) Cardiovascular: irregular rhythm, other (S1-S2 heard) Gastrointestinal: bowel sounds, non-tender, soft Extremities: edema (Trace) Results Result Diagram: 07/04/17 0622 07/04/17 0622 Results 24 hrs Laboratory Tests Test 07/03/17 16:54 07/03/17 21:11 07/04/17 06:22 07/04/17 08:15 Bedside Glucose 96 100 72 White Blood Count 3.9 L Red Blood Count 3.56 L Hemoglobin 11.5 L Hematocrit 38.4 Mean Corpuscular Volume 107.9 H Mean Corpuscular Hemoglobin 32.3 Mean Corpuscular Hemoglobin Concent 29.9 L Red Cell Distribution Width 15.1 H Platelet Count 89 L Mean Platelet Volume 12.2 H Neutrophils % 70.5 Lymphocytes % 16.7 Monocytes % 8.7 Eosinophils % 2.8 Basophils % 1.0 Nucleated Red Blood Cells % 0.0 Neutrophils # 2.7 Lymphocytes # 0.7 L Monocytes # 0.3 Eosinophils # 0.1 Basophils # 0.0 Nucleated Red Blood Cells # 0.0 Sodium Level 141 Potassium Level 5.0 Chloride Level 109 Carbon Dioxide Level 25 Anion Gap 12 Blood Urea Nitrogen 27 H Creatinine 3.66 H Glucose Level 78 Calcium Level 10.2 Test 07/04/17 11:46 Bedside Glucose 139 Medications Medications Current Medications Aspirin (Halfprin) 81 mg DAILY PO Last administered on 07/04/17 08:16; Admin Dose 81 MG; Start 06/29/17 at 09:00 Atorvastatin Calcium (Lipitor) 40 mg QHS PO Last administered on 07/03/17 20: 43; Admin Dose 40 MG; Start 06/28/17 at 21:00 Phenol (Cepastat Lozenge) 1 lozenge Q4 PRN PO COUGH; Start 06/28/17 at 20:00 Carvedilol (Coreg) 12.5 mg BID PO Last administered on 07/03/17 20:44; Admin Dose 12.5 MG; Start 06/28/17 at 21:00 Clonidine HCl (Catapres-Tts 3 Patch) 1 patch Q7D TRANSDERM Last administered on 06/29/17 06:40; Admin Dose 1 PATCH; Start 06/28/17 at 20:00 Docusate Sodium (Colace) 100 mg BID PO Last administered on 07/04/17 08:16; Admin Dose 100 MG; Start 06/28/17 at 21:00 Folic Acid (Folic Acid) 1 mg DAILY PO Last administered on 07/04/17 08:16; Admin Dose 1 MG; Start 06/29/17 at 09:00 Hydralazine HCl (Apresoline) 100 mg TID PO Last administered on 07/04/17 14:13 ; Admin Dose 100 MG; Start 06/28/17 at 21:00 Hydroxyzine HCl (Atarax) 25 mg Q6H PRN PO ITCHING; Start 06/28/17 at 20:00 Multivit/Ca Carb/ B Cmplx/FA/Prenat (Sofy-Cooper) 1 tab DAILY PO Last administered on 07/04/17 08:16; Admin Dose 1 TAB; Start 06/28/17 at 20:00 Nifedipine (Procardia Xl) 60 mg BID PO Last administered on 07/03/17 20:44; Admin Dose 60 MG; Start 06/28/17 at 21:00 Senna (Senokot) 1 tab DAILY PO Last administered on 07/04/17 08:16; Admin Dose 1 TAB; Start 06/29/17 at 09:00 Ondansetron HCl (Zofran Inj) 4 mg Q6H PRN IV NAUSEA AND/OR VOMITING Last administered on 06/29/17 16:30; Admin Dose 4 MG; Start 06/28/17 at 20:00 Nitroglycerin (Nitroglycerin (Sl Tab) 0.4 Mg) 1 tab Q5M PRN SL CHEST PAIN; Start 06/28/17 at 20:00 Acetaminophen (Tylenol Tab) 650 mg Q6H PRN PO PAIN LEVEL 1-3 OR FEVER Last administered on 07/02/17 13:00; Admin Dose 650 MG; Start 06/28/17 at 20:00 Acetaminophen/ Hydrocodone Bitart ([place] (5/325)) 1 tab Q6H PRN PO PAIN LEVEL 4 -6 Last administered on 07/04/17 11:36; Admin Dose 1 TAB; Start 06/28/17 at 20: 00 Morphine Sulfate (morphine) 2 mg Q4H PRN IV PAIN LEVEL 7-10 Last administered on 06/29/17 16:29; Admin Dose 2 MG; Start 06/28/17 at 20:00 Docusate Sodium (Colace) 100 mg Q12H PRN PO CONSTIPATION; Start 06/28/17 at 20: 00 Magnesium Hydroxide (Milk Of Mag) 30 ml DAILY PRN PO CONSTIPATION; Start at 20:00 Bisacodyl (Dulcolax Supp) 10 mg DAILY PRN [place] CONSTIPATION; Start 06/28/17 at 20 :00 Famotidine 10 mg 10 mg Q48H PO Last administered on 07/02/17 20:49; Admin Dose 10 MG; Start 06/28/17 at 21:00 Sodium Chloride (NS) 1,000 ml @ 0 mls/hr Q0M PRN IV TO KEEP SBP ABOVE 90; Start 06/28/17 at 20:01 Heparin Sodium (Porcine) (Heparin (5000 Units/0.5 ml)) 5,000 unit BID SC Last administered on 07/04/17 08:45; Admin Dose 5,000 UNIT; Start 06/29/17 at 12:00 Mupirocin 1 applic 1 applic BID TOP Last administered on 07/04/17 11:37; Admin Dose 1 APPLIC; Start 06/30/17 at 12:00 Piperacillin Sod/ Tazobactam Sod (Zosyn 2.25gm/ 50ml (Pmx)) 50 ml @ 100 mls/hr Q8 IVPB Last administered on 07/04/17 14:13; Admin Dose 100 MLS/HR; Start at 14:00 Lisinopril (Zestril) 10 mg DAILY PO Last administered on 07/04/17 05:19; Admin Dose 10 MG; Start 07/02/17 at 11:00 Hydralazine HCl (Apresoline) 20 mg Q6H PRN IV ELEVATED BLOOD PRESSURE; Start at 07:00 Moises Miller DO Jul 04, 2017 15:38
[2017-07-04] MEDS: AMIODARONE 900 MG in DEXTROSE 5% 482 ML IV SCH (18:43)
[2017-07-04] MEDS: FAMOTIDINE 20 MG TAB PO SCH (20:56)
[2017-07-04] MEDS: ATORVASTATIN 40 MG TAB PO SCH (20:56)
[2017-07-04] MEDS ORDERED: AMIODARONE 200 MG TAB PO SCH (21:00)
[2017-07-05] VITALS (11 sets, daily range): BP systolic 118–189; BP diastolic 55–86; PULSE 55–78; RESP 15–20
[2017-07-05] MEDS: AMIODARONE 900 MG in DEXTROSE 5% 482 ML IV SCH (01:31)
[2017-07-05] MEDS: hydrALAzine 20 MG INJ IV PRN (04:15)
[2017-07-05] MEDS: PANTOPRAZOLE (EC) 40 MG TAB PO SCH (06:38)
[2017-07-05] MEDS: PIPER-TAZO 2.25 GM (PMX) 50 ML IVPB SCH ×3 (06:38→22:29)
[2017-07-05 07:35] LABS: ABNORMAL IP MESSAGE 1; BASOPHILS % 0.7 % (0.0-2.0); EOSINOPHILS # 0.1 10^3/ul (0.0-0.5); EOSINOPHILS % 2.7 % (0.0-7.0); HEMATOCRIT 39.5 % (37.0-47.0); HEMOGLOBIN 11.6 g/dl (12.0-16.0); LYMPHOCYTES # 0.7 10^3/ul (0.8-2.9); LYMPHOCYTES % 17.7 % (15.0-51.0); MEAN CORPUSCULAR HEMOGLOBIN 31.9 pg (29.0-33.0); MEAN CORPUSCULAR HGB CONC 29.4 g/dl (32.0-37.0); MEAN CORPUSCULAR VOLUME 108.5 fl (82.0-101.0); MEAN PLATELET VOLUME 11.5 fl (7.4-10.4); MONOCYTE # 0.4 10^3/ul (0.3-0.9); MONOCYTES % 10.2 % (0.0-11.0); NEUTROPHIL # 2.7 10^3/ul (1.6-7.5); NEUTROPHILS % 68.5 % (39.0-77.0); PLATELET COUNT 87 10^3/UL (140-415); RED BLOOD COUNT 3.64 10^6/ul (4.20-5.40); RED CELL DISTRIBUTION WIDTH 15.2 % (11.5-14.5)
[2017-07-05 07:37] LABS: POSITIVE DIFF @See below
[2017-07-05 08:06] LABS: CALCIUM 9.6 mg/dl (8.4-10.2); CREATININE 2.79 mg/dl (0.44-1.00)
[2017-07-05] MEDS: SENNA TAB PO SCH (08:06)
[2017-07-05] MEDS: ASPIRIN (EC) 81 MG TAB PO SCH (08:06)
[2017-07-05] MEDS: SEVELAMER CARBONATE 0.8 GM PKT PO SCH ×3 (08:06→18:16)
[2017-07-05] MEDS: DOCUSATE SODIUM 100 MG CAP PO SCH ×2 (08:06→20:27)
[2017-07-05] MEDS: FOLIC ACID 1 MG TAB PO SCH (08:06)
[2017-07-05] MEDS: MULTIVIT/CA CARB/B CMPLX/FA TAB PO SCH (08:07)
[2017-07-05] MEDS: NIFEdipine (XL) 60 MG TAB PO SCH ×2 (08:07→20:28)
[2017-07-05] MEDS: LISINOPRIL 10 MG TAB PO SCH (08:07)
[2017-07-05] MEDS: MUPIROCIN 2% 22 GM OINT TOP SCH ×2 (08:24→20:40)
[2017-07-05] MEDS: HEPARIN 5,000 UNIT/0.5 ML VIAL SC SCH ×2 (08:24→20:37)
[2017-07-05] MEDS: ACCU-CHEK XX SCH ×4 (08:24→20:43)
--- NOTE | 2017-07-05 11:52 | PN ---
Date/Time of Note Date/Time of Note DATE: 07/05/17 TIME: 11:42 Assessment/Plan VTE Prophylaxis VTE Prophylaxis Intervention: heparin Lines/Catheters IV Catheter Type (from [facility]): Peripheral IV Urinary Cath still in place: No Assessment/Plan Assessment/Plan 86-year-old female with: 1. Severe encephalopathy, patient was almost comatose on presentation with systolic blood pressures in the 200s. Mental status much improved, more awake, taking po meds and on puree diet. BP much better contorlled with meds on board Primarily [place] speaking. CAT scan of the head followed by MRI of the brain are both negative for acute injury. Ammonia within normal Discharge planning back to care home facility when Ok form Cardio standpoint 2. Severe protein malnutrition, weight loss decreased p.o. intake, episodes of vomiting 1 day of admission CAT scan of the abdomen and pelvis with findings possibly consistent with mild colitis, change to Augmentin at discharge for 5 more days. She is DNR, according to the daughter they do not wish to put a feeding tube. Resume home medications. 3. Malignant hypertension, episode of hypertensive urgency on admission. Blood pressure better controlled post meds this AM , on Clonidine patch, carvedilol, nifedipine, hydralazine and lisinopril 4. End-stage renal disease, on hemodialysis now per schedule 5. Right tibial fracture, subacute to chronic, cast in place. Follow-up with orthopedic surgery as an outpatient. 6. Enterococcus positive blood culture 2, ampicillin sensitive, repeat blood cultures NGTD. We will plan to discharge on Augmentin for 5 more days. 7. Mild troponin elevation, in setting of hemodialysis patient, hypertensive emergency on admission. Patient was seen at [facility] a few days ago where she was reported to also have slightly elevated troponin at 0.068 which was deemed to be related to her renal disease. Apparently she did have an echocardiogram but there is no dictation or reading as far as we know. Troponin is slightly elevated here up and remains around 0.16.. Patient is fairly in some asymptomatic. Appreciate cardiology evaluation and recommendation, continue conservative management, continue blood pressure control. 8. Atrial fibrillation, new onset more or less, on amiodarone drip and ?plan for transition to po later today post gtt Patient in SR this AM Monitoring electrolytes. Prophylaxis: Heparin subcu for DVT prophylaxis, Pepcid for GI prophylaxis Disposition: Dialysis per nephrology, [place] for enterococcus bacteremia and possible mild colitis on CAT scan. Patient has better blood pressure control especially after dialysis. Discharge planning in the next 24-48 hours back to care home facility if Ok with Cardiology trice also heart rate and blood pressure stable. Subjective 24 Hr Interval Summary Free Text/Dictation Patient sleeping but easily arousable BP better post meds On Amio gtt for A fib Afebrile Exam/Review of Systems Vital Signs Vitals Vital Signs Date Time Temp Pulse Resp B/P Pulse Ox O2 Delivery O2 Flow Rate FiO2 07/05/17 11:18 97.7 65 16 128/59 96 07/05/17 02:23 2.0 07/04/17 20:00 Nasal Cannula 07/03/17 03:35 28 Intake and Output 07/04/17 07/04/17 07/05/17 15:00 23:00 07:00 Intake Total 500 ml 460 ml Output Total 2500 ml Balance -2000 ml 460 ml Exam Constitutional: frail, other (sleeping but easily arousable, [place]an speaking only ) Respiratory: clear to auscultation, normal air movement Cardiovascular: nl pulses, regular rate and rhythm (in SR currently ) Gastrointestinal: non-tender, soft Musculoskeletal: other (right LE in cast ) Extremities: normal pulses Neurological: FRONT END SPECIALIST II-XII intact, other (easily arousable, generalised weakness ) Results Result Diagram: 07/05/17 0634 07/05/17 0634 Results 24 hrs Laboratory Tests Test 07/04/17 11:46 07/04/17 17:24 07/04/17 21:14 07/05/17 06:33 Bedside Glucose 139 97 79 Magnesium Level 1.9 Test 07/05/17 06:34 07/05/17 08:18 White Blood Count 4.0 L Red Blood Count 3.64 L Hemoglobin 11.6 L Hematocrit 39.5 Mean Corpuscular Volume 108.5 H Mean Corpuscular Hemoglobin 31.9 Mean Corpuscular Hemoglobin Concent 29.4 L Red Cell Distribution Width 15.2 H Platelet Count 87 L Mean Platelet Volume 11.5 H Neutrophils % 68.5 Lymphocytes % 17.7 Monocytes % 10.2 Eosinophils % 2.7 Basophils % 0.7 Nucleated Red Blood Cells % 0.0 Neutrophils # 2.7 Lymphocytes # 0.7 L Monocytes # 0.4 Eosinophils # 0.1 Basophils # 0.0 Nucleated Red Blood Cells # 0.0 Sodium Level 141 Potassium Level 4.0 Chloride Level 108 Carbon Dioxide Level 27 Anion Gap 10 Blood Urea Nitrogen 19 Creatinine 2.79 H Glucose Level 77 Calcium Level 9.6 Bedside Glucose 72 Medications Medications Current Medications Aspirin (Halfprin) 81 mg DAILY PO Last administered on 07/05/17 08:06; Admin Dose 81 MG; Start 06/29/17 at 09:00 Atorvastatin Calcium (Lipitor) 40 mg QHS PO Last administered on 07/04/17 20: 56; Admin Dose 40 MG; Start 06/28/17 at 21:00 Phenol (Cepastat Lozenge) 1 lozenge Q4 PRN PO COUGH; Start 06/28/17 at 20:00 Carvedilol (Coreg) 12.5 mg BID PO Last administered on 07/05/17 08:07; Admin Dose 12.5 MG; Start 06/28/17 at 21:00 Clonidine HCl (Catapres-Tts 3 Patch) 1 patch Q7D TRANSDERM Last administered on 06/29/17 06:40; Admin Dose 1 PATCH; Start 06/28/17 at 20:00 Docusate Sodium (Colace) 100 mg BID PO Last administered on 07/05/17 08:06; Admin Dose 100 MG; Start 06/28/17 at 21:00 Folic Acid (Folic Acid) 1 mg DAILY PO Last administered on 07/05/17 08:06; Admin Dose 1 MG; Start 06/29/17 at 09:00 Hydralazine HCl (Apresoline) 100 mg TID PO Last administered on 07/05/17 08:08 ; Admin Dose 100 MG; Start 06/28/17 at 21:00 Hydroxyzine HCl (Atarax) 25 mg Q6H PRN PO ITCHING; Start 06/28/17 at 20:00 Multivit/Ca Carb/ B Cmplx/FA/Prenat (Sofy-Cooper) 1 tab DAILY PO Last administered on 07/05/17 08:07; Admin Dose 1 TAB; Start 06/28/17 at 20:00 Nifedipine (Procardia Xl) 60 mg BID PO Last administered on 07/05/17 08:07; Admin Dose 60 MG; Start 06/28/17 at 21:00 Senna (Senokot) 1 tab DAILY PO Last administered on 07/05/17 08:06; Admin Dose 1 TAB; Start 06/29/17 at 09:00 Ondansetron HCl (Zofran Inj) 4 mg Q6H PRN IV NAUSEA AND/OR VOMITING Last administered on 06/29/17 16:30; Admin Dose 4 MG; Start 06/28/17 at 20:00 Nitroglycerin (Nitroglycerin (Sl Tab) 0.4 Mg) 1 tab Q5M PRN SL CHEST PAIN; Start 06/28/17 at 20:00 Acetaminophen (Tylenol Tab) 650 mg Q6H PRN PO PAIN LEVEL 1-3 OR FEVER Last administered on 07/02/17 13:00; Admin Dose 650 MG; Start 06/28/17 at 20:00 Acetaminophen/ Hydrocodone Bitart ([place] (5/325)) 1 tab Q6H PRN PO PAIN LEVEL 4 -6 Last administered on 07/04/17 11:36; Admin Dose 1 TAB; Start 06/28/17 at 20: 00 Morphine Sulfate (morphine) 2 mg Q4H PRN IV PAIN LEVEL 7-10 Last administered on 06/29/17 16:29; Admin Dose 2 MG; Start 06/28/17 at 20:00 Docusate Sodium (Colace) 100 mg Q12H PRN PO CONSTIPATION; Start 06/28/17 at 20: 00 Magnesium Hydroxide (Milk Of Mag) 30 ml DAILY PRN PO CONSTIPATION; Start at 20:00 Bisacodyl (Dulcolax Supp) 10 mg DAILY PRN [place] CONSTIPATION; Start 06/28/17 at 20 :00 Famotidine 10 mg 10 mg Q48H PO Last administered on 07/04/17 20:56; Admin Dose 10 MG; Start 06/28/17 at 21:00 Sodium Chloride (NS) 1,000 ml @ 0 mls/hr Q0M PRN IV TO KEEP SBP ABOVE 90; Start 06/28/17 at 20:01 Heparin Sodium (Porcine) (Heparin (5000 Units/0.5 ml)) 5,000 unit BID SC Last administered on 07/05/17 08:24; Admin Dose 5,000 UNIT; Start 06/29/17 at 12:00 Mupirocin 1 applic 1 applic BID TOP Last administered on 07/05/17 08:24; Admin Dose 1 APPLIC; Start 06/30/17 at 12:00 Piperacillin Sod/ Tazobactam Sod (Zosyn 2.25gm/ 50ml (Pmx)) 50 ml @ 100 mls/hr Q8 IVPB Last administered on 07/05/17 06:38; Admin Dose 100 MLS/HR; Start at 14:00 Lisinopril (Zestril) 10 mg DAILY PO Last administered on 07/05/17 08:07; Admin Dose 10 MG; Start 07/02/17 at 11:00 Hydralazine HCl 20 mg 20 mg Q6H PRN IV ELEVATED BLOOD PRESSURE Last administered on 07/05/17 04:15; Admin Dose 20 MG; Start 07/04/17 at 07:00 Amiodarone HCl/ Dextrose (Cordarone Iv/ D5W) 500 ml @ 0 mls/hr Q0M IV Last administered on 07/05/17 01:31; Admin Dose 16.7 MLS/HR; Start 07/04/17 at 16:30 ; Stop 07/05/17 at 16:29 KEON LOVE Jul 05, 2017 11:52
--- NOTE | 2017-07-05 15:13 | CONS ---
Date/Time of Note Date/Time of Note DATE: 07/05/17 TIME: 15:10 Assessment/Plan Assessment/Plan Chief Complaint/Hosp Course 86 y/o with 1. Encephalopathy likely metabolic 2. Malignant HTN 3. Positive troponin. 4 Malnutrition. 6. Hypoalbuminemia. 7. Protein-calorie malnutrition with CT A+P with infectious/ischemia/ inflammatory colitis 8. End-stage renal disease ON HD M/W//F 9. Right tibial fracture, has a cast on. 10. Hypertension. 11. Enterococcus bacterimia on zosyn Recs - HD tmw - Hold BP meds before each HD session - on Coreg 12.5 bid , Hydralzine 100 tid, Nifedipine 60 mg, Clonidine patch and Lisnopril was added, given hydralazine yesterday for [id number] - on zosyn - Pain control - GI/DVT prophylaxsis Problems: Consultation Date/Type/Reason Admit Date/Time Jun 28, 2017 at 17:52 Type of Consultation: Renal 24 HR Interval Summary Free Text/Dictation Pt was in Afib, now on Amiodarone gtt> sinus now Exam/Review of Systems Vital Signs Vitals Vital Signs Date Time Temp Pulse Resp B/P Pulse Ox O2 Delivery O2 Flow Rate FiO2 07/05/17 12:00 63 07/05/17 11:18 97.7 16 128/59 96 07/05/17 08:00 Nasal Cannula 2.0 07/03/17 03:35 28 Intake and Output 07/04/17 07/04/17 07/05/17 15:00 23:00 07:00 Intake Total 500 ml 460 ml Output Total 2500 ml Balance -2000 ml 460 ml Exam Gen:Awake, alert Neck:supple Lungs:clear CVS:Regular rate and rthym Abdomen:soft, non tender ext: in cast Access: rt permacath, left AV graft clotted Results Result Diagram: 07/05/17 0634 07/05/17 0634 Results 24 hrs Laboratory Tests Test 07/04/17 17:24 07/04/17 21:14 07/05/17 06:33 07/05/17 06:34 Bedside Glucose 97 79 Magnesium Level 1.9 White Blood Count 4.0 L Red Blood Count 3.64 L Hemoglobin 11.6 L Hematocrit 39.5 Mean Corpuscular Volume 108.5 H Mean Corpuscular Hemoglobin 31.9 Mean Corpuscular Hemoglobin Concent 29.4 L Red Cell Distribution Width 15.2 H Platelet Count 87 L Mean Platelet Volume 11.5 H Neutrophils % 68.5 Lymphocytes % 17.7 Monocytes % 10.2 Eosinophils % 2.7 Basophils % 0.7 Nucleated Red Blood Cells % 0.0 Neutrophils # 2.7 Lymphocytes # 0.7 L Monocytes # 0.4 Eosinophils # 0.1 Basophils # 0.0 Nucleated Red Blood Cells # 0.0 Sodium Level 141 Potassium Level 4.0 Chloride Level 108 Carbon Dioxide Level 27 Anion Gap 10 Blood Urea Nitrogen 19 Creatinine 2.79 H Glucose Level 77 Calcium Level 9.6 Test 07/05/17 08:18 07/05/17 13:17 Bedside Glucose 72 97 Medications Medications Current Medications Aspirin (Halfprin) 81 mg DAILY PO Last administered on 07/05/17 08:06; Admin Dose 81 MG; Start 06/29/17 at 09:00 Atorvastatin Calcium (Lipitor) 40 mg QHS PO Last administered on 07/04/17 20: 56; Admin Dose 40 MG; Start 06/28/17 at 21:00 Phenol (Cepastat Lozenge) 1 lozenge Q4 PRN PO COUGH; Start 06/28/17 at 20:00 Carvedilol (Coreg) 12.5 mg BID PO Last administered on 07/05/17 08:07; Admin Dose 12.5 MG; Start 06/28/17 at 21:00 Clonidine HCl (Catapres-Tts 3 Patch) 1 patch Q7D TRANSDERM Last administered on 06/29/17 06:40; Admin Dose 1 PATCH; Start 06/28/17 at 20:00 Docusate Sodium (Colace) 100 mg BID PO Last administered on 07/05/17 08:06; Admin Dose 100 MG; Start 06/28/17 at 21:00 Folic Acid (Folic Acid) 1 mg DAILY PO Last administered on 07/05/17 08:06; Admin Dose 1 MG; Start 06/29/17 at 09:00 Hydralazine HCl (Apresoline) 100 mg TID PO Last administered on 07/05/17 13:13 ; Admin Dose 100 MG; Start 06/28/17 at 21:00 Hydroxyzine HCl (Atarax) 25 mg Q6H PRN PO ITCHING; Start 06/28/17 at 20:00 Multivit/Ca Carb/ B Cmplx/FA/Prenat (Sofy-Cooper) 1 tab DAILY PO Last administered on 07/05/17 08:07; Admin Dose 1 TAB; Start 06/28/17 at 20:00 Nifedipine (Procardia Xl) 60 mg BID PO Last administered on 07/05/17 08:07; Admin Dose 60 MG; Start 06/28/17 at 21:00 Senna (Senokot) 1 tab DAILY PO Last administered on 07/05/17 08:06; Admin Dose 1 TAB; Start 06/29/17 at 09:00 Ondansetron HCl (Zofran Inj) 4 mg Q6H PRN IV NAUSEA AND/OR VOMITING Last administered on 06/29/17 16:30; Admin Dose 4 MG; Start 06/28/17 at 20:00 Nitroglycerin (Nitroglycerin (Sl Tab) 0.4 Mg) 1 tab Q5M PRN SL CHEST PAIN; Start 06/28/17 at 20:00 Acetaminophen (Tylenol Tab) 650 mg Q6H PRN PO PAIN LEVEL 1-3 OR FEVER Last administered on 07/02/17 13:00; Admin Dose 650 MG; Start 06/28/17 at 20:00 Acetaminophen/ Hydrocodone Bitart ([place] (5/325)) 1 tab Q6H PRN PO PAIN LEVEL 4 -6 Last administered on 07/04/17 11:36; Admin Dose 1 TAB; Start 06/28/17 at 20: 00 Morphine Sulfate (morphine) 2 mg Q4H PRN IV PAIN LEVEL 7-10 Last administered on 06/29/17 16:29; Admin Dose 2 MG; Start 06/28/17 at 20:00 Docusate Sodium (Colace) 100 mg Q12H PRN PO CONSTIPATION; Start 06/28/17 at 20: 00 Magnesium Hydroxide (Milk Of Mag) 30 ml DAILY PRN PO CONSTIPATION; Start at 20:00 Bisacodyl (Dulcolax Supp) 10 mg DAILY PRN [place] CONSTIPATION; Start 06/28/17 at 20 :00 Famotidine 10 mg 10 mg Q48H PO Last administered on 07/04/17 20:56; Admin Dose 10 MG; Start 06/28/17 at 21:00 Sodium Chloride (NS) 1,000 ml @ 0 mls/hr Q0M PRN IV TO KEEP SBP ABOVE 90; Start 06/28/17 at 20:01 Heparin Sodium (Porcine) (Heparin (5000 Units/0.5 ml)) 5,000 unit BID SC Last administered on 07/05/17 08:24; Admin Dose 5,000 UNIT; Start 06/29/17 at 12:00 Mupirocin 1 applic 1 applic BID TOP Last administered on 07/05/17 08:24; Admin Dose 1 APPLIC; Start 06/30/17 at 12:00 Piperacillin Sod/ Tazobactam Sod (Zosyn 2.25gm/ 50ml (Pmx)) 50 ml @ 100 mls/hr Q8 IVPB Last administered on 07/05/17 13:20; Admin Dose 100 MLS/HR; Start at 14:00 Lisinopril (Zestril) 10 mg DAILY PO Last administered on 07/05/17 08:07; Admin Dose 10 MG; Start 07/02/17 at 11:00 Hydralazine HCl 20 mg 20 mg Q6H PRN IV ELEVATED BLOOD PRESSURE Last administered on 07/05/17 04:15; Admin Dose 20 MG; Start 07/04/17 at 07:00 Amiodarone HCl/ Dextrose (Cordarone Iv/ D5W) 500 ml @ 0 mls/hr Q0M IV Last administered on 07/05/17 01:31; Admin Dose 16.7 MLS/HR; Start 07/04/17 at 16:30 ; Stop 07/05/17 at 16:29 ISRAEL MURILLO MD Jul 05, 2017 15:12
[2017-07-05] MEDS ORDERED: AMIODARONE 200 MG TAB PO ONE (16:07)
--- NOTE | 2017-07-05 16:10 | CONS ---
Date/Time of Note Date/Time of Note DATE: 07/05/17 TIME: 16:08 Assessment/Plan Assessment/Plan Additional Assessment/Plan Hypertensive emergency with elevated troponin Acute decompensated diastolic congestive heart failure End-stage renal disease on hemodialysis with volume overload History of hypertension Severe left ventricular hypertrophy with preserved ejection fraction Encephalopathy, improved Paroxysmal atrial fibrillation, currently sinus rhythm Medical uncomplaince -Patient currently sinus rhythm, with transition to p.o. amiodarone and continue as long as heart rate permits. Ideally 200 mg p.o. twice daily for 1 week then 200 mg daily and titrate off if she remains in sinus rhythm at a later time. Blood pressure trend is improving. Of importance is compliant with medications and hemodialysis. DC planning Consultation Date/Type/Reason Admit Date/Time Jun 28, 2017 at 17:52 Type of Consultation: cv 24 HR Interval Summary Free Text/Dictation Patient seen and examined. Exam/Review of Systems Vital Signs Vitals Vital Signs Date Time Temp Pulse Resp B/P Pulse Ox O2 Delivery O2 Flow Rate FiO2 07/05/17 16:00 55 07/05/17 15:26 98.3 16 150/70 96 07/05/17 08:00 Nasal Cannula 2.0 07/03/17 03:35 28 Intake and Output 07/04/17 07/04/17 07/05/17 15:00 23:00 07:00 Intake Total 500 ml 460 ml Output Total 2500 ml Balance -2000 ml 460 ml Exam Sleeping but arousable, no apparent distress Head: normocephalic Respiratory: other (Coarse breath sounds bilaterally, no wheezing) Cardiovascular: other (S1-S2 heard), regular rate and rhythm Gastrointestinal: bowel sounds, non-tender, soft Extremities: other (No significant edema) Results Result Diagram: 07/05/17 0634 07/05/17 0634 Results 24 hrs Laboratory Tests Test 07/04/17 17:24 07/04/17 21:14 07/05/17 06:33 07/05/17 06:34 Bedside Glucose 97 79 Magnesium Level 1.9 White Blood Count 4.0 L Red Blood Count 3.64 L Hemoglobin 11.6 L Hematocrit 39.5 Mean Corpuscular Volume 108.5 H Mean Corpuscular Hemoglobin 31.9 Mean Corpuscular Hemoglobin Concent 29.4 L Red Cell Distribution Width 15.2 H Platelet Count 87 L Mean Platelet Volume 11.5 H Neutrophils % 68.5 Lymphocytes % 17.7 Monocytes % 10.2 Eosinophils % 2.7 Basophils % 0.7 Nucleated Red Blood Cells % 0.0 Neutrophils # 2.7 Lymphocytes # 0.7 L Monocytes # 0.4 Eosinophils # 0.1 Basophils # 0.0 Nucleated Red Blood Cells # 0.0 Sodium Level 141 Potassium Level 4.0 Chloride Level 108 Carbon Dioxide Level 27 Anion Gap 10 Blood Urea Nitrogen 19 Creatinine 2.79 H Glucose Level 77 Calcium Level 9.6 Test 07/05/17 08:18 07/05/17 13:17 Bedside Glucose 72 97 Medications Medications Current Medications Aspirin (Halfprin) 81 mg DAILY PO Last administered on 07/05/17 08:06; Admin Dose 81 MG; Start 06/29/17 at 09:00 Atorvastatin Calcium (Lipitor) 40 mg QHS PO Last administered on 07/04/17 20: 56; Admin Dose 40 MG; Start 06/28/17 at 21:00 Phenol (Cepastat Lozenge) 1 lozenge Q4 PRN PO COUGH; Start 06/28/17 at 20:00 Carvedilol (Coreg) 12.5 mg BID PO Last administered on 07/05/17 08:07; Admin Dose 12.5 MG; Start 06/28/17 at 21:00 Clonidine HCl (Catapres-Tts 3 Patch) 1 patch Q7D TRANSDERM Last administered on 06/29/17 06:40; Admin Dose 1 PATCH; Start 06/28/17 at 20:00 Docusate Sodium (Colace) 100 mg BID PO Last administered on 07/05/17 08:06; Admin Dose 100 MG; Start 06/28/17 at 21:00 Folic Acid (Folic Acid) 1 mg DAILY PO Last administered on 07/05/17 08:06; Admin Dose 1 MG; Start 06/29/17 at 09:00 Hydralazine HCl (Apresoline) 100 mg TID PO Last administered on 07/05/17 13:13 ; Admin Dose 100 MG; Start 06/28/17 at 21:00 Hydroxyzine HCl (Atarax) 25 mg Q6H PRN PO ITCHING; Start 06/28/17 at 20:00 Multivit/Ca Carb/ B Cmplx/FA/Prenat (Sofy-Cooper) 1 tab DAILY PO Last administered on 07/05/17 08:07; Admin Dose 1 TAB; Start 06/28/17 at 20:00 Nifedipine (Procardia Xl) 60 mg BID PO Last administered on 07/05/17 08:07; Admin Dose 60 MG; Start 06/28/17 at 21:00 Senna (Senokot) 1 tab DAILY PO Last administered on 07/05/17 08:06; Admin Dose 1 TAB; Start 06/29/17 at 09:00 Ondansetron HCl (Zofran Inj) 4 mg Q6H PRN IV NAUSEA AND/OR VOMITING Last administered on 06/29/17 16:30; Admin Dose 4 MG; Start 06/28/17 at 20:00 Nitroglycerin (Nitroglycerin (Sl Tab) 0.4 Mg) 1 tab Q5M PRN SL CHEST PAIN; Start 06/28/17 at 20:00 Acetaminophen (Tylenol Tab) 650 mg Q6H PRN PO PAIN LEVEL 1-3 OR FEVER Last administered on 07/02/17 13:00; Admin Dose 650 MG; Start 06/28/17 at 20:00 Acetaminophen/ Hydrocodone Bitart ([place] (5/325)) 1 tab Q6H PRN PO PAIN LEVEL 4 -6 Last administered on 07/04/17 11:36; Admin Dose 1 TAB; Start 06/28/17 at 20: 00 Morphine Sulfate (morphine) 2 mg Q4H PRN IV PAIN LEVEL 7-10 Last administered on 06/29/17 16:29; Admin Dose 2 MG; Start 06/28/17 at 20:00 Docusate Sodium (Colace) 100 mg Q12H PRN PO CONSTIPATION; Start 06/28/17 at 20: 00 Magnesium Hydroxide (Milk Of Mag) 30 ml DAILY PRN PO CONSTIPATION; Start at 20:00 Bisacodyl (Dulcolax Supp) 10 mg DAILY PRN [place] CONSTIPATION; Start 06/28/17 at 20 :00 Famotidine 10 mg 10 mg Q48H PO Last administered on 07/04/17 20:56; Admin Dose 10 MG; Start 06/28/17 at 21:00 Sodium Chloride (NS) 1,000 ml @ 0 mls/hr Q0M PRN IV TO KEEP SBP ABOVE 90; Start 06/28/17 at 20:01 Heparin Sodium (Porcine) (Heparin (5000 Units/0.5 ml)) 5,000 unit BID SC Last administered on 07/05/17 08:24; Admin Dose 5,000 UNIT; Start 06/29/17 at 12:00 Mupirocin 1 applic 1 applic BID TOP Last administered on 07/05/17 08:24; Admin Dose 1 APPLIC; Start 06/30/17 at 12:00 Piperacillin Sod/ Tazobactam Sod (Zosyn 2.25gm/ 50ml (Pmx)) 50 ml @ 100 mls/hr Q8 IVPB Last administered on 07/05/17 13:20; Admin Dose 100 MLS/HR; Start at 14:00 Lisinopril (Zestril) 10 mg DAILY PO Last administered on 07/05/17 08:07; Admin Dose 10 MG; Start 07/02/17 at 11:00 Hydralazine HCl 20 mg 20 mg Q6H PRN IV ELEVATED BLOOD PRESSURE Last administered on 07/05/17 04:15; Admin Dose 20 MG; Start 07/04/17 at 07:00 Amiodarone HCl/ Dextrose (Cordarone Iv/ D5W) 500 ml @ 0 mls/hr Q0M IV Last administered on 07/05/17 01:31; Admin Dose 16.7 MLS/HR; Start 07/04/17 at 16:30 ; Stop 07/05/17 at 16:29 Moises Miller DO Jul 05, 2017 16:10
[2017-07-05] MEDS: CLONIDINE 0.3 MG/24 HR PATCH TRANSDERM SCH (20:26)
[2017-07-05] MEDS: ATORVASTATIN 40 MG TAB PO SCH (20:27)
[2017-07-06] VITALS (23 sets, daily range): BP systolic 135–230; BP diastolic 64–100; PULSE 56–86; RESP 15–21
[2017-07-06] MEDS: AMIODARONE 200 MG TAB PO SCH ×3 (00:31→20:40)
[2017-07-06] MEDS: PIPER-TAZO 2.25 GM (PMX) 50 ML IVPB SCH ×3 (06:07→20:46)
[2017-07-06] MEDS: PANTOPRAZOLE (EC) 40 MG TAB PO SCH (07:03)
[2017-07-06 07:48] LABS: CALCIUM 9.6 mg/dl (8.4-10.2); CREATININE 3.39 mg/dl (0.44-1.00); POTASSIUM 4.7 mmol/L (3.5-5.1)
[2017-07-06 07:52] LABS: MAGNESIUM 2.1 mg/dl (1.7-2.5); PHOSPHORUS 6.4 mg/dl (2.5-4.9)
[2017-07-06] MEDS: SEVELAMER CARBONATE 0.8 GM PKT PO SCH ×3 (08:02→18:22)
[2017-07-06] MEDS: LISINOPRIL 10 MG TAB PO SCH ×2 (08:03→20:41)
[2017-07-06] MEDS: MULTIVIT/CA CARB/B CMPLX/FA TAB PO SCH (08:03)
[2017-07-06] MEDS: DOCUSATE SODIUM 100 MG CAP PO SCH ×2 (08:03→08:54)
[2017-07-06] MEDS: SENNA TAB PO SCH (08:04)
[2017-07-06] MEDS: FOLIC ACID 1 MG TAB PO SCH (08:04)
[2017-07-06] MEDS: ASPIRIN (EC) 81 MG TAB PO SCH (08:04)
[2017-07-06] MEDS: HEPARIN 5,000 UNIT/0.5 ML VIAL SC SCH ×2 (08:08→20:44)
[2017-07-06] MEDS: MUPIROCIN 2% 22 GM OINT TOP SCH ×2 (08:09→20:42)
[2017-07-06] MEDS: NIFEdipine (XL) 60 MG TAB PO SCH (08:10)
[2017-07-06] MEDS: ACCU-CHEK XX SCH ×4 (08:11→20:45)
--- NOTE | 2017-07-06 08:14 | PN ---
Date/Time of Note Date/Time of Note DATE: 07/06/17 TIME: 08:11 Assessment/Plan VTE Prophylaxis VTE Prophylaxis Intervention: SCD's Lines/Catheters IV [facility]ter [facility]from [facility] [place] Urinary Cath still in place: No Assessment/Plan Assessment/Plan 86-year-old female with: 1. Malignant hypertension, episode of hypertensive urgency on admission. BP high this AM and medications given. Awaiting HD today. Continue Clonidine patch, carvedilol, nifedipine, hydralazine and lisinopril 2. Severe protein malnutrition, weight loss decreased p.o. intake, episodes of vomiting 1 day of admission CAT scan of the abdomen and pelvis with findings possibly consistent with mild colitis, change to Augmentin at discharge for 5 more days. She is DNR, according to the daughter they do not wish to put a feeding tube. Resume home medications. 3. End-stage renal disease, on hemodialysis now per schedule 4. Right tibial fracture, subacute to chronic, cast in place. Follow-up with orthopedic surgery as an outpatient. 5. Enterococcus positive blood culture 2, ampicillin sensitive, repeat blood cultures NGTD. We will plan to discharge on Augmentin for 5 more days. 6. Mild troponin elevation, in setting of hemodialysis patient, hypertensive emergency on admission. Patient was seen at [facility] a few days ago where she was reported to also have slightly elevated troponin at 0.068 which was deemed to be related to her renal disease. Apparently she did have an echocardiogram but there is no dictation or reading as far as we know. Troponin is slightly elevated here up and remains around 0.16.. Patient is fairly in some asymptomatic. Appreciate cardiology evaluation and recommendation, continue conservative management, continue blood pressure control. 7. Atrial fibrillation, new onset more or less, on amiodarone drip and ?plan for transition to po later today post gtt Patient in SR this AM Monitoring electrolytes. Prophylaxis: Heparin subcu for DVT prophylaxis, Pepcid for GI prophylaxis Disposition: Dialysis per nephrology, [place] for enterococcus bacteremia and possible mild colitis on CAT scan. Patient has better blood pressure control especially after dialysis. Discharge planning in the next 24-48 hours back to halfway facility if Ok with Cardiology and also heart rate and blood pressure less labile. Subjective 24 Hr Interval Summary Free Text/Dictation Awake and alert. No complaints, despite SBP of 220-230. Awaiting HD today and AM Bp meds given now. Exam/Review of Systems Vital Signs Vitals Vital Signs Date Time Temp Pulse Resp B/P Pulse Ox O2 Delivery O2 Flow Rate FiO2 07/06/17 08:01 97.5 58 18 230/98 95 07/06/17 07:48 2.0 07/05/17 19:42 Nasal Cannula 07/03/17 03:35 28 Intake and Output 07/05/17 07/05/17 07/06/17 15:00 23:00 07:00 Intake Total 400 ml 350 ml Balance 400 ml 350 ml Exam Constitutional: alert, oriented Psych: no complaints Head: normocephalic Eyes: nl conjunctiva ENMT: nl external ears & nose Neck: supple Respiratory: clear to auscultation Cardiovascular: regular rate and rhythm Gastrointestinal: soft Extremities: normal pulses Results Result Diagram: 07/05/17 0634 07/06/17 0646 Results 24 hrs Laboratory Tests Test 07/05/17 08:18 07/05/17 13:17 07/05/17 18:12 07/05/17 20:42 Bedside Glucose 72 97 81 141 Test 07/06/17 06:46 07/06/17 07:50 Sodium Level 137 Potassium Level 4.7 Chloride Level 105 Carbon Dioxide Level 26 Anion Gap 11 Blood Urea Nitrogen 27 H Creatinine 3.39 H Glucose Level 82 Calcium Level 9.6 Phosphorus Level 6.4 H Magnesium Level 2.1 Bedside Glucose 66 L Medications Medications Current Medications Aspirin (Halfprin) 81 mg DAILY PO Last administered on 07/05/17 08:06; Admin Dose 81 MG; Start 06/29/17 at 09:00 Atorvastatin Calcium (Lipitor) 40 mg QHS PO Last administered on 07/05/17 20: 27; Admin Dose 40 MG; Start 06/28/17 at 21:00 Phenol (Cepastat Lozenge) 1 lozenge Q4 PRN PO COUGH; Start 06/28/17 at 20:00 Carvedilol (Coreg) 12.5 mg BID PO Last administered on 07/05/17 20:27; Admin Dose 12.5 MG; Start 06/28/17 at 21:00 Clonidine HCl (Catapres-Tts 3 Patch) 1 patch Q7D TRANSDERM Last administered on 07/05/17 20:26; Admin Dose 1 PATCH; Start 06/28/17 at 20:00 Docusate Sodium (Colace) 100 mg BID PO Last administered on 07/05/17 20:27; Admin Dose 100 MG; Start 06/28/17 at 21:00 Folic Acid (Folic Acid) 1 mg DAILY PO Last administered on 07/05/17 08:06; Admin Dose 1 MG; Start 06/29/17 at 09:00 Hydralazine HCl (Apresoline) 100 mg TID PO Last administered on 07/05/17 20:26 ; Admin Dose 100 MG; Start 06/28/17 at 21:00 Hydroxyzine HCl (Atarax) 25 mg Q6H PRN PO ITCHING; Start 06/28/17 at 20:00 Multivit/Ca Carb/ B Cmplx/FA/Prenat (Sofy-Cooper) 1 tab DAILY PO Last administered on 07/05/17 08:07; Admin Dose 1 TAB; Start 06/28/17 at 20:00 Nifedipine (Procardia Xl) 60 mg BID PO Last administered on 07/05/17 20:28; Admin Dose 60 MG; Start 06/28/17 at 21:00 Senna (Senokot) 1 tab DAILY PO Last administered on 07/05/17 08:06; Admin Dose 1 TAB; Start 06/29/17 at 09:00 Ondansetron HCl (Zofran Inj) 4 mg Q6H PRN IV NAUSEA AND/OR VOMITING Last administered on 06/29/17 16:30; Admin Dose 4 MG; Start 06/28/17 at 20:00 Nitroglycerin (Nitroglycerin (Sl Tab) 0.4 Mg) 1 tab Q5M PRN SL CHEST PAIN; Start 06/28/17 at 20:00 Acetaminophen (Tylenol Tab) 650 mg Q6H PRN PO PAIN LEVEL 1-3 OR FEVER Last administered on 07/02/17 13:00; Admin Dose 650 MG; Start 06/28/17 at 20:00 Acetaminophen/ Hydrocodone Bitart ([place] (5/325)) 1 tab Q6H PRN PO PAIN LEVEL 4 -6 Last administered on 07/04/17 11:36; Admin Dose 1 TAB; Start 06/28/17 at 20: 00 Morphine Sulfate (morphine) 2 mg Q4H PRN IV PAIN LEVEL 7-10 Last administered on 06/29/17 16:29; Admin Dose 2 MG; Start 06/28/17 at 20:00 Docusate Sodium (Colace) 100 mg Q12H PRN PO CONSTIPATION; Start 06/28/17 at 20: 00 Magnesium Hydroxide (Milk Of Mag) 30 ml DAILY PRN PO CONSTIPATION; Start at 20:00 Bisacodyl (Dulcolax Supp) 10 mg DAILY PRN [place] CONSTIPATION; Start 06/28/17 at 20 :00 Famotidine 10 mg 10 mg Q48H PO Last administered on 07/04/17 20:56; Admin Dose 10 MG; Start 06/28/17 at 21:00 Sodium Chloride (NS) 1,000 ml @ 0 mls/hr Q0M PRN IV TO KEEP SBP ABOVE 90; Start 06/28/17 at 20:01 Heparin Sodium (Porcine) (Heparin (5000 Units/0.5 ml)) 5,000 unit BID SC Last administered on 07/05/17 20:37; Admin Dose 5,000 UNIT; Start 06/29/17 at 12:00 Mupirocin 1 applic 1 applic BID TOP Last administered on 07/05/17 20:40; Admin Dose 1 APPLIC; Start 06/30/17 at 12:00 Piperacillin Sod/ Tazobactam Sod (Zosyn 2.25gm/ 50ml (Pmx)) 50 ml @ 100 mls/hr Q8 IVPB Last administered on 07/06/17 06:07; Admin Dose 100 MLS/HR; Start at 14:00 Lisinopril (Zestril) 10 mg DAILY PO Last administered on 07/05/17 08:07; Admin Dose 10 MG; Start 07/02/17 at 11:00 Hydralazine HCl (Apresoline) 20 mg Q6H PRN IV ELEVATED BLOOD PRESSURE Last administered on 07/05/17 04:15; Admin Dose 20 MG; Start 07/04/17 at 07:00 Amiodarone HCl (Cordarone) 200 mg BID PO Last administered on 07/06/17 00:31; Admin Dose 200 MG; Start 07/05/17 at 21:00 GENET TRIMBLE MD Jul 06, 2017 08:14
[2017-07-06] MEDS ORDERED: AMLODIPINE 5 MG TAB PO ONE (10:15)
[2017-07-06] MEDS: DOCUSATE SODIUM 10 MG/ML (10ML CUP) PO SCH ×2 (10:23→20:39)
--- NOTE | 2017-07-06 10:23 | CONS ---
Date/Time of Note Date/Time of Note DATE: 07/06/17 TIME: 10:21 Assessment/Plan Assessment/Plan Additional Assessment/Plan Hypertensive emergency with elevated troponin Acute decompensated diastolic congestive heart failure End-stage renal disease on hemodialysis with volume overload History of hypertension Severe left ventricular hypertrophy with preserved ejection fraction Encephalopathy, improved Paroxysmal atrial fibrillation, currently sinus rhythm Medical uncomplaince -Blood pressure elevated this morning and not receiving Coreg because of low heart rates and not receiving Procardia because medication cannot be crushed. I will increase lisinopril to twice daily dosing, switch Procardia to Norvasc. Remains in sinus rhythm, continue amiodarone as heart rate and blood pressure permits. Consultation Date/Type/Reason Admit Date/Time Jun 28, 2017 at 17:52 Type of Consultation: cv 24 HR Interval Summary Free Text/Dictation Patient seen and examined. In discussion with nursing staff, patient on getting Coreg because of low heart rate and did not get Procardia because cannot be crushed, blood pressure elevated this morning Exam/Review of Systems Vital Signs Vitals Vital Signs Date Time Temp Pulse Resp B/P Pulse Ox O2 Delivery O2 Flow Rate FiO2 07/06/17 08:12 58 07/06/17 08:01 97.5 18 230/98 95 07/06/17 07:48 2.0 07/05/17 19:42 Nasal Cannula 07/03/17 03:35 28 Intake and Output 07/05/17 07/05/17 07/06/17 15:00 23:00 07:00 Intake Total 400 ml 350 ml Balance 400 ml 350 ml Exam Sleeping but arousable, no apparent distress, following basic commands Head: normocephalic Respiratory: other (Coarse breath sounds bilaterally, no wheezing) Cardiovascular: other (S1-S2 heard), regular rate and rhythm Gastrointestinal: bowel sounds, non-tender, soft Extremities: other (No edema) Results Result Diagram: 07/05/17 0634 07/06/17 0646 Results 24 hrs Laboratory Tests Test 07/05/17 13:17 07/05/17 18:12 07/05/17 20:42 07/06/17 06:46 Bedside Glucose 97 81 141 Sodium Level 137 Potassium Level 4.7 Chloride Level 105 Carbon Dioxide Level 26 Anion Gap 11 Blood Urea Nitrogen 27 H Creatinine 3.39 H Glucose Level 82 Calcium Level 9.6 Phosphorus Level 6.4 H Magnesium Level 2.1 Test 07/06/17 07:50 Bedside Glucose 66 L Medications Medications Current Medications Aspirin (Halfprin) 81 mg DAILY PO Last administered on 07/06/17 08:04; Admin Dose 81 MG; Start 06/29/17 at 09:00 Atorvastatin Calcium (Lipitor) 40 mg QHS PO Last administered on 07/05/17 20: 27; Admin Dose 40 MG; Start 06/28/17 at 21:00 Phenol (Cepastat Lozenge) 1 lozenge Q4 PRN PO COUGH; Start 06/28/17 at 20:00 Carvedilol (Coreg) 12.5 mg BID PO Last administered on 07/05/17 20:27; Admin Dose 12.5 MG; Start 06/28/17 at 21:00 Clonidine HCl (Catapres-Tts 3 Patch) 1 patch Q7D TRANSDERM Last administered on 07/05/17 20:26; Admin Dose 1 PATCH; Start 06/28/17 at 20:00 Folic Acid (Folic Acid) 1 mg DAILY PO Last administered on 07/06/17 08:04; Admin Dose 1 MG; Start 06/29/17 at 09:00 Hydralazine HCl (Apresoline) 100 mg TID PO Last administered on 07/06/17 08:04 ; Admin Dose 100 MG; Start 06/28/17 at 21:00 Hydroxyzine HCl (Atarax) 25 mg Q6H PRN PO ITCHING; Start 06/28/17 at 20:00 Multivit/Ca Carb/ B Cmplx/FA/Prenat (Sofy-Cooper) 1 tab DAILY PO Last administered on 07/06/17 08:03; Admin Dose 1 TAB; Start 06/28/17 at 20:00 Senna (Senokot) 1 tab DAILY PO Last administered on 07/06/17 08:04; Admin Dose 1 TAB; Start 06/29/17 at 09:00 Ondansetron HCl (Zofran Inj) 4 mg Q6H PRN IV NAUSEA AND/OR VOMITING Last administered on 06/29/17 16:30; Admin Dose 4 MG; Start 06/28/17 at 20:00 Nitroglycerin (Nitroglycerin (Sl Tab) 0.4 Mg) 1 tab Q5M PRN SL CHEST PAIN; Start 06/28/17 at 20:00 Acetaminophen (Tylenol Tab) 650 mg Q6H PRN PO PAIN LEVEL 1-3 OR FEVER Last administered on 07/02/17 13:00; Admin Dose 650 MG; Start 06/28/17 at 20:00 Acetaminophen/ Hydrocodone Bitart ([place] (5/325)) 1 tab Q6H PRN PO PAIN LEVEL 4 -6 Last administered on 07/04/17 11:36; Admin Dose 1 TAB; Start 06/28/17 at 20: 00 Morphine Sulfate (morphine) 2 mg Q4H PRN IV PAIN LEVEL 7-10 Last administered on 06/29/17 16:29; Admin Dose 2 MG; Start 06/28/17 at 20:00 Docusate Sodium (Colace) 100 mg Q12H PRN PO CONSTIPATION; Start 06/28/17 at 20: 00 Magnesium Hydroxide (Milk Of Mag) 30 ml DAILY PRN PO CONSTIPATION; Start at 20:00 Bisacodyl (Dulcolax Supp) 10 mg DAILY PRN [place] CONSTIPATION; Start 06/28/17 at 20 :00 Famotidine 10 mg 10 mg Q48H PO Last administered on 07/04/17 20:56; Admin Dose 10 MG; Start 06/28/17 at 21:00 Sodium Chloride (NS) 1,000 ml @ 0 mls/hr Q0M PRN IV TO KEEP SBP ABOVE 90; Start 06/28/17 at 20:01 Heparin Sodium (Porcine) (Heparin (5000 Units/0.5 ml)) 5,000 unit BID SC Last administered on 07/06/17 08:08; Admin Dose 5,000 UNIT; Start 06/29/17 at 12:00 Mupirocin 1 applic 1 applic BID TOP Last administered on 07/06/17 08:09; Admin Dose 1 APPLIC; Start 06/30/17 at 12:00 Piperacillin Sod/ Tazobactam Sod (Zosyn 2.25gm/ 50ml (Pmx)) 50 ml @ 100 mls/hr Q8 IVPB Last administered on 07/06/17 06:07; Admin Dose 100 MLS/HR; Start at 14:00 Hydralazine HCl (Apresoline) 20 mg Q6H PRN IV ELEVATED BLOOD PRESSURE Last administered on 07/05/17 04:15; Admin Dose 20 MG; Start 07/04/17 at 07:00 Amiodarone HCl (Cordarone) 200 mg BID PO Last administered on 07/06/17 00:31; Admin Dose 200 MG; Start 07/05/17 at 21:00; Stop 07/06/17 at 21:00 Docusate Sodium (Colace Liquid Cup) 100 mg BID PO ; Start 07/06/17 at 09:00 Amiodarone HCl (Cordarone) 200 mg DAILY PO ; Start 07/07/17 at 09:00 Lisinopril (Zestril) 10 mg BID PO ; Start 07/06/17 at 21:00 Amlodipine Besylate (Norvasc) 5 mg BID PO ; Start 07/06/17 at 10:30 Amlodipine Besylate (Norvasc) 5 mg 1015 ONCE PO ; Start 07/06/17 at 10:15; Stop 07/06/17 at 10:16; Status Moises Cole DO Jul 06, 2017 10:23
[2017-07-06] MEDS: AMLODIPINE 5 MG TAB PO SCH ×2 (10:48→20:41)
--- NOTE | 2017-07-06 15:10 | CONS ---
Date/Time of Note Date/Time of Note DATE: 07/06/17 TIME: 15:07 Assessment/Plan Assessment/Plan Chief Complaint/Hosp Course 86 y/o with 1. Encephalopathy likely metabolic 2. Malignant HTN 3. Positive troponin in setting of ESRD 4 Malnutrition. 6. Hypoalbuminemia. 7. Protein-calorie malnutrition with CT A+P with infectious/ischemia/ inflammatory colitis 8. End-stage renal disease ON HD M/W//F 9. Right tibial fracture, has a cast on. 10. Hypertension. 11. Enterococcus bacterimia on zosyn Recs - HD today - on Coreg 12.5 bid , Hydralzine 100 tid, Nifedipine 60 mg> norvasc , Clonidine patch .Lisnopril was increased to 10 bid - on zosyn - Pain control - GI/DVT prophylaxsis Problems: Consultation Date/Type/Reason Admit Date/Time Jun 28, 2017 at 17:52 Type of Consultation: Renal 24 HR Interval Summary Free Text/Dictation SBP>200 this am, received HD > SBP 170s; Lisnopril was increased to 10 bid and procardia to norvasc Exam/Review of Systems Vital Signs Vitals Vital Signs Date Time Temp Pulse Resp B/P Pulse Ox O2 Delivery O2 Flow Rate FiO2 07/06/17 15:01 65 07/06/17 12:20 14 07/06/17 11:42 97.8 217/100 92 07/06/17 07:48 2.0 07/06/17 07:30 Nasal Cannula 07/03/17 03:35 28 Intake and Output 07/05/17 07/05/17 07/06/17 15:00 23:00 07:00 Intake Total 400 ml 350 ml Balance 400 ml 350 ml Exam Gen:Awake, alert Neck:supple Lungs:clear CVS:Regular rate and rthym Abdomen:soft, non tender ext: in cast Access: rt permacath, left AV graft clotted Results Result Diagram: 07/05/17 0634 07/06/17 0646 Results 24 hrs Laboratory Tests Test 07/05/17 18:12 07/05/17 20:42 07/06/17 06:46 07/06/17 07:50 Bedside Glucose 81 141 66 L Sodium Level 137 Potassium Level 4.7 Chloride Level 105 Carbon Dioxide Level 26 Anion Gap 11 Blood Urea Nitrogen 27 H Creatinine 3.39 H Glucose Level 82 Calcium Level 9.6 Phosphorus Level 6.4 H Magnesium Level 2.1 Test 07/06/17 11:12 Bedside Glucose 95 Medications Medications Current Medications Aspirin (Halfprin) 81 mg DAILY PO Last administered on 07/06/17 08:04; Admin Dose 81 MG; Start 06/29/17 at 09:00 Atorvastatin Calcium (Lipitor) 40 mg QHS PO Last administered on 07/05/17 20: 27; Admin Dose 40 MG; Start 06/28/17 at 21:00 Phenol (Cepastat Lozenge) 1 lozenge Q4 PRN PO COUGH; Start 06/28/17 at 20:00 Carvedilol (Coreg) 12.5 mg BID PO Last administered on 07/06/17 10:49; Admin Dose 12.5 MG; Start 06/28/17 at 21:00 Clonidine HCl (Catapres-Tts 3 Patch) 1 patch Q7D TRANSDERM Last administered on 07/05/17 20:26; Admin Dose 1 PATCH; Start 06/28/17 at 20:00 Folic Acid (Folic Acid) 1 mg DAILY PO Last administered on 07/06/17 08:04; Admin Dose 1 MG; Start 06/29/17 at 09:00 Hydralazine HCl (Apresoline) 100 mg TID PO Last administered on 07/06/17 12:37 ; Admin Dose 100 MG; Start 06/28/17 at 21:00 Hydroxyzine HCl (Atarax) 25 mg Q6H PRN PO ITCHING; Start 06/28/17 at 20:00 Multivit/Ca Carb/ B Cmplx/FA/Prenat (Sofy-Cooper) 1 tab DAILY PO Last administered on 07/06/17 08:03; Admin Dose 1 TAB; Start 06/28/17 at 20:00 Senna (Senokot) 1 tab DAILY PO Last administered on 07/06/17 08:04; Admin Dose 1 TAB; Start 06/29/17 at 09:00 Ondansetron HCl (Zofran Inj) 4 mg Q6H PRN IV NAUSEA AND/OR VOMITING Last administered on 06/29/17 16:30; Admin Dose 4 MG; Start 06/28/17 at 20:00 Nitroglycerin (Nitroglycerin (Sl Tab) 0.4 Mg) 1 tab Q5M PRN SL CHEST PAIN; Start 06/28/17 at 20:00 Acetaminophen (Tylenol Tab) 650 mg Q6H PRN PO PAIN LEVEL 1-3 OR FEVER Last administered on 07/02/17 13:00; Admin Dose 650 MG; Start 06/28/17 at 20:00 Acetaminophen/ Hydrocodone Bitart ([place] (5/325)) 1 tab Q6H PRN PO PAIN LEVEL 4 -6 Last administered on 07/04/17 11:36; Admin Dose 1 TAB; Start 06/28/17 at 20: 00 Morphine Sulfate (morphine) 2 mg Q4H PRN IV PAIN LEVEL 7-10 Last administered on 06/29/17 16:29; Admin Dose 2 MG; Start 06/28/17 at 20:00 Docusate Sodium (Colace) 100 mg Q12H PRN PO CONSTIPATION; Start 06/28/17 at 20: 00 Magnesium Hydroxide (Milk Of Mag) 30 ml DAILY PRN PO CONSTIPATION; Start at 20:00 Bisacodyl (Dulcolax Supp) 10 mg DAILY PRN [place] CONSTIPATION; Start 06/28/17 at 20 :00 Famotidine 10 mg 10 mg Q48H PO Last administered on 07/04/17 20:56; Admin Dose 10 MG; Start 06/28/17 at 21:00 Sodium Chloride (NS) 1,000 ml @ 0 mls/hr Q0M PRN IV TO KEEP SBP ABOVE 90; Start 06/28/17 at 20:01 Heparin Sodium (Porcine) (Heparin (5000 Units/0.5 ml)) 5,000 unit BID SC Last administered on 07/06/17 08:08; Admin Dose 5,000 UNIT; Start 06/29/17 at 12:00 Mupirocin 1 applic 1 applic BID TOP Last administered on 07/06/17 08:09; Admin Dose 1 APPLIC; Start 06/30/17 at 12:00 Piperacillin Sod/ Tazobactam Sod (Zosyn 2.25gm/ 50ml (Pmx)) 50 ml @ 100 mls/hr Q8 IVPB Last administered on 07/06/17 06:07; Admin Dose 100 MLS/HR; Start at 14:00 Hydralazine HCl (Apresoline) 20 mg Q6H PRN IV ELEVATED BLOOD PRESSURE Last administered on 07/05/17 04:15; Admin Dose 20 MG; Start 07/04/17 at 07:00 Amiodarone HCl (Cordarone) 200 mg BID PO Last administered on 07/06/17 00:31; Admin Dose 200 MG; Start 07/05/17 at 21:00; Stop 07/06/17 at 21:00 Docusate Sodium (Colace Liquid Cup) 100 mg BID PO Last administered on 10:23; Admin Dose 100 MG; Start 07/06/17 at 09:00 Amiodarone HCl (Cordarone) 200 mg DAILY PO ; Start 07/07/17 at 09:00 Lisinopril (Zestril) 10 mg BID PO ; Start 07/06/17 at 21:00 Amlodipine Besylate (Norvasc) 5 mg BID PO Last administered on 07/06/17 10:48 ; Admin Dose 5 MG; Start 07/06/17 at 10:30 ISRAEL MURILLO MD Jul 06, 2017 15:10
[2017-07-06] MEDS: hydrALAzine 20 MG INJ IV PRN ×2 (16:49→23:48)
[2017-07-06] MEDS: ATORVASTATIN 40 MG TAB PO SCH (20:40)
[2017-07-06] MEDS: FAMOTIDINE 20 MG TAB PO SCH (20:41)
[2017-07-07] VITALS (10 sets, daily range): BP systolic 139–186; BP diastolic 67–87; PULSE 56–60; RESP 16–20
[2017-07-07] MEDS: PIPER-TAZO 2.25 GM (PMX) 50 ML IVPB SCH ×2 (05:05→13:42)
[2017-07-07 07:18] LABS: EOSINOPHILS # 0.2 10^3/ul (0.0-0.5); HEMATOCRIT 38.2 % (37.0-47.0); HEMOGLOBIN 11.6 g/dl (12.0-16.0); MEAN CORPUSCULAR HGB CONC 30.4 g/dl (32.0-37.0); MEAN CORPUSCULAR VOLUME 105.2 fl (82.0-101.0); MEAN PLATELET VOLUME 12.1 fl (7.4-10.4); MONOCYTE # 0.4 10^3/ul (0.3-0.9); MONOCYTES % 10.9 % (0.0-11.0); NEUTROPHIL # 2.4 10^3/ul (1.6-7.5); NEUTROPHILS % 58.9 % (39.0-77.0); RED BLOOD COUNT 3.63 10^6/ul (4.20-5.40); RED CELL DISTRIBUTION WIDTH 14.6 % (11.5-14.5)
[2017-07-07 07:26] LABS: PLATELET COUNT 112 10^3/UL (140-415)
[2017-07-07 07:27] LABS: POSITIVE DIFF @See below
[2017-07-07 07:47] LABS: ALBUMIN 2.6 g/dl (3.3-4.9); CALCIUM 9.4 mg/dl (8.4-10.2); CREATININE 2.58 mg/dl (0.44-1.00); PHOSPHORUS 5.5 mg/dl (2.5-4.9); POTASSIUM 4.4 mmol/L (3.5-5.1)
[2017-07-07] MEDS: SEVELAMER CARBONATE 0.8 GM PKT PO SCH ×3 (08:20→17:18)
[2017-07-07] MEDS: FOLIC ACID 1 MG TAB PO SCH (08:20)
[2017-07-07] MEDS: ACCU-CHEK XX SCH ×3 (08:20→12:07)
[2017-07-07] MEDS: SENNA TAB PO SCH (08:20)
[2017-07-07] MEDS: DOCUSATE SODIUM 10 MG/ML (10ML CUP) PO SCH (08:20)
[2017-07-07] MEDS: MULTIVIT/CA CARB/B CMPLX/FA TAB PO SCH (08:21)
[2017-07-07] MEDS: PANTOPRAZOLE (EC) 40 MG TAB PO SCH (08:21)
[2017-07-07] MEDS: LISINOPRIL 10 MG TAB PO SCH ×2 (08:21→20:44)
[2017-07-07] MEDS: AMLODIPINE 5 MG TAB PO SCH ×2 (08:21→20:45)
[2017-07-07] MEDS: ASPIRIN (EC) 81 MG TAB PO SCH (08:21)
[2017-07-07] MEDS: MUPIROCIN 2% 22 GM OINT TOP SCH (08:22)
[2017-07-07] MEDS: HEPARIN 5,000 UNIT/0.5 ML VIAL SC SCH (08:32)
[2017-07-07] MEDS ORDERED: AMIODARONE 200 MG TAB PO SCH (09:00)
--- NOTE | 2017-07-07 09:38 | PN ---
Date/Time of Note Date/Time of Note DATE: 07/07/17 TIME: 09:38 Assessment/Plan VTE Prophylaxis VTE Prophylaxis Intervention: SCD's Lines/Catheters IV Catheter Type (from [facility] perma cath Urinary Cath still in place: No Assessment/Plan Assessment/Plan Hypertensive emergency with elevated troponin Acute decompensated diastolic congestive heart failure End-stage renal disease on hemodialysis with volume overload History of hypertension Severe left ventricular hypertrophy with preserved ejection fraction Encephalopathy, improved Paroxysmal atrial fibrillation, currently sinus rhythm Medical uncomplaince -Blood pressure elevated this morning and not receiving Coreg because of low heart rates and not receiving Procardia because medication cannot be crushed. I will increase lisinopril to twice daily dosing, switch Procardia to Norvasc. Remains in sinus rhythm, continue amiodarone as heart rate and blood pressure permits. -remains in nsr Subjective 24 Hr Interval Summary Free Text/Dictation the patient with no cahnge Exam/Review of Systems Vital Signs Vitals Vital Signs Date Time Temp Pulse Resp B/P Pulse Ox O2 Delivery O2 Flow Rate FiO2 07/07/17 08:12 60 07/07/17 07:46 97.8 18 158/75 95 07/07/17 04:00 2.0 07/06/17 21:00 Nasal Cannula Intake and Output 07/06/17 07/06/17 07/07/17 15:00 23:00 07:00 Intake Total 660 ml 330 ml Output Total 2400 ml Balance -1740 ml 330 ml Results Result Diagram: 07/07/17 0652 07/07/17 0652 Results 24 hrs Laboratory Tests Test 07/06/17 11:12 07/06/17 17:38 07/06/17 20:32 07/07/17 06:52 Bedside Glucose 95 125 101 White Blood Count 4.0 L Red Blood Count 3.63 L Hemoglobin 11.6 L Hematocrit 38.2 Mean Corpuscular Volume 105.2 H Mean Corpuscular Hemoglobin 32.0 Mean Corpuscular Hemoglobin Concent 30.4 L Red Cell Distribution Width 14.6 H Platelet Count 112 #L Mean Platelet Volume 12.1 H Neutrophils % 58.9 Lymphocytes % 25.0 Monocytes % 10.9 Eosinophils % 4.0 Basophils % 1.0 Nucleated Red Blood Cells % 0.0 Neutrophils # 2.4 Lymphocytes # 1.0 Monocytes # 0.4 Eosinophils # 0.2 Basophils # 0.0 Nucleated Red Blood Cells # 0.0 Sodium Level 138 Potassium Level 4.4 Chloride Level 104 Carbon Dioxide Level 29 Anion Gap 9 Blood Urea Nitrogen 21 H Creatinine 2.58 H Glucose Level 76 Calcium Level 9.4 Phosphorus Level 5.5 H Albumin 2.6 L Test 07/07/17 08:19 Bedside Glucose 96 Medications Medications Current Medications Aspirin (Halfprin) 81 mg DAILY PO Last administered on 07/07/17 08:21; Admin Dose 81 MG; Start 06/29/17 at 09:00 Atorvastatin Calcium (Lipitor) 40 mg QHS PO Last administered on 07/06/17 20: 40; Admin Dose 40 MG; Start 06/28/17 at 21:00 Phenol (Cepastat Lozenge) 1 lozenge Q4 PRN PO COUGH; Start 06/28/17 at 20:00 Carvedilol (Coreg) 12.5 mg BID PO Last administered on 07/07/17 08:21; Admin Dose 12.5 MG; Start 06/28/17 at 21:00 Clonidine HCl (Catapres-Tts 3 Patch) 1 patch Q7D TRANSDERM Last administered on 07/05/17 20:26; Admin Dose 1 PATCH; Start 06/28/17 at 20:00 Folic Acid (Folic Acid) 1 mg DAILY PO Last administered on 07/07/17 08:20; Admin Dose 1 MG; Start 06/29/17 at 09:00 Hydralazine HCl (Apresoline) 100 mg TID PO Last administered on 07/07/17 08:22 ; Admin Dose 100 MG; Start 06/28/17 at 21:00 Hydroxyzine HCl (Atarax) 25 mg Q6H PRN PO ITCHING; Start 06/28/17 at 20:00 Multivit/Ca Carb/ B Cmplx/FA/Prenat (Sofy-Cooper) 1 tab DAILY PO Last administered on 07/07/17 08:21; Admin Dose 1 TAB; Start 06/28/17 at 20:00 Senna (Senokot) 1 tab DAILY PO Last administered on 07/07/17 08:20; Admin Dose 1 TAB; Start 06/29/17 at 09:00 Ondansetron HCl (Zofran Inj) 4 mg Q6H PRN IV NAUSEA AND/OR VOMITING Last administered on 06/29/17 16:30; Admin Dose 4 MG; Start 06/28/17 at 20:00 Nitroglycerin (Nitroglycerin (Sl Tab) 0.4 Mg) 1 tab Q5M PRN SL CHEST PAIN; Start 06/28/17 at 20:00 Acetaminophen (Tylenol Tab) 650 mg Q6H PRN PO PAIN LEVEL 1-3 OR FEVER Last administered on 07/02/17 13:00; Admin Dose 650 MG; Start 06/28/17 at 20:00 Acetaminophen/ Hydrocodone Bitart ([place] (5/325)) 1 tab Q6H PRN PO PAIN LEVEL 4 -6 Last administered on 07/04/17 11:36; Admin Dose 1 TAB; Start 06/28/17 at 20: 00 Morphine Sulfate (morphine) 2 mg Q4H PRN IV PAIN LEVEL 7-10 Last administered on 06/29/17 16:29; Admin Dose 2 MG; Start 06/28/17 at 20:00 Docusate Sodium (Colace) 100 mg Q12H PRN PO CONSTIPATION; Start 06/28/17 at 20: 00 Magnesium Hydroxide (Milk Of Mag) 30 ml DAILY PRN PO CONSTIPATION; Start at 20:00 Bisacodyl (Dulcolax Supp) 10 mg DAILY PRN [place] CONSTIPATION; Start 06/28/17 at 20 :00 Famotidine 10 mg 10 mg Q48H PO Last administered on 07/06/17 20:41; Admin Dose 10 MG; Start 06/28/17 at 21:00 Sodium Chloride (NS) 1,000 ml @ 0 mls/hr Q0M PRN IV TO KEEP SBP ABOVE 90; Start 06/28/17 at 20:01 Heparin Sodium (Porcine) (Heparin (5000 Units/0.5 ml)) 5,000 unit BID SC Last administered on 07/07/17 08:32; Admin Dose 5,000 UNIT; Start 06/29/17 at 12:00 Mupirocin 1 applic 1 applic BID TOP Last administered on 07/07/17 08:22; Admin Dose 1 APPLIC; Start 06/30/17 at 12:00 Piperacillin Sod/ Tazobactam Sod (Zosyn 2.25gm/ 50ml (Pmx)) 50 ml @ 100 mls/hr Q8 IVPB Last administered on 07/07/17 05:05; Admin Dose 100 MLS/HR; Start at 14:00 Hydralazine HCl (Apresoline) 20 mg Q6H PRN IV ELEVATED BLOOD PRESSURE Last administered on 07/06/17 23:48; Admin Dose 20 MG; Start 07/04/17 at 07:00 Docusate Sodium (Colace Liquid Cup) 100 mg BID PO Last administered on 08:20; Admin Dose 100 MG; Start 07/06/17 at 09:00 Amiodarone HCl (Cordarone) 200 mg DAILY PO Last administered on 07/07/17 08:20 ; Admin Dose 200 MG; Start 07/07/17 at 09:00 Lisinopril (Zestril) 10 mg BID PO Last administered on 07/07/17 08:21; Admin Dose 10 MG; Start 07/06/17 at 21:00 Amlodipine Besylate (Norvasc) 5 mg BID PO Last administered on 07/07/17 08:21 ; Admin Dose 5 MG; Start 07/06/17 at 10:30 NOVA CUMMINGS MD Jul 07, 2017 09:38
--- NOTE | 2017-07-07 13:28 | PN ---
Date/Time of Note Date/Time of Note DATE: 07/07/17 TIME: 13:19 Assessment/Plan VTE Prophylaxis VTE Prophylaxis Intervention: SCD's Lines/Catheters Urinary Cath still in place: No Assessment/Plan Assessment/Plan 86-year-old female with: 1. Severe encephalopathy, patient was almost comatose on presentation with systolic blood pressures in the 200s. Mental status much improved, more awake, taking po meds and on puree diet. BP much better controlled with meds on board Primarily [place] speaking. CAT scan of the head followed by MRI of the brain are both negative for acute injury. Ammonia within normal Discharge planning back to half-way facility today, hopefully her blood pressure will not shoot up again. 2. Severe protein malnutrition, weight loss decreased p.o. intake, episodes of vomiting 1 day of admission CAT scan of the abdomen and pelvis with findings possibly consistent with mild colitis, change to Augmentin at discharge for 3 more days. She is DNR, according to the daughter they do not wish to put a feeding tube. Resume home medications. 3. Malignant hypertension, episode of hypertensive urgency on admission. Appreciate adjustments made by cardiology, medications have been changed accordingly to adjust for the patient's heart rate and also need to crush all medications, on Clonidine patch, Norvasc, hydralazine and higher dose of lisinopril. Coreg on hold for now. 4. End-stage renal disease, on hemodialysis now per schedule 5. Right tibial fracture, subacute to chronic, cast in place. Follow-up with orthopedic surgery as an outpatient. 6. Enterococcus positive blood culture 2, ampicillin sensitive, repeat blood cultures NGTD. We will plan to discharge on Augmentin for 3 more days. 7. Mild troponin elevation, in setting of hemodialysis patient, hypertensive emergency on admission. Patient was seen at [facility] a few days ago where she was reported to also have slightly elevated troponin at 0.068 which was deemed to be related to her renal disease. Apparently she did have an echocardiogram but there is no dictation or reading as far as we know. Troponin is slightly elevated here up and remains around 0.16.. Patient is fairly in some asymptomatic. Appreciate cardiology evaluation and recommendation, continue conservative management, continue blood pressure control. 8. Atrial fibrillation, new onset more or less, now on oral amiodarone, maintaining sinus rhythm. Should cardiology recommendations Patient in SR this AM Prophylaxis: Heparin subcu for DVT prophylaxis, Pepcid for GI prophylaxis Disposition: Dialysis per nephrology, 3 more days of Augmentin for enterococcus bacteremia and possible mild colitis on CAT scan. Patient has better blood pressure control especially after dialysis. Discharge planning to half-way facility today. Resume outpatient hemodialysis schedule. Subjective 24 Hr Interval Summary Free Text/Dictation Patient seems to be at baseline, she takes some coaching to take her medications , blood pressure is better controlled today, she has a tendency to be significantly hypertensive prior to dialysis but after dialysis her systolic blood pressure will go from upper 200's to 130's, has a very labile blood pressure therefore her medications are not being titrated any further. We will attempt to discharge to half-way facility today. Exam/Review of Systems Vital Signs Vitals Vital Signs Date Time Temp Pulse Resp B/P Pulse Ox O2 Delivery O2 Flow Rate FiO2 07/07/17 12:04 60 07/07/17 11:12 98.1 16 149/87 96 07/07/17 08:00 Nasal Cannula 2.0 Intake and Output 07/06/17 07/06/17 07/07/17 15:00 23:00 07:00 Intake Total 660 ml 330 ml Output Total 2400 ml Balance -1740 ml 330 ml Exam Constitutional: alert, frail, other (Primary [place]an or turkmen speaking) Respiratory: clear to auscultation, normal air movement Cardiovascular: nl pulses, regular rate and rhythm Gastrointestinal: non-tender, soft Musculoskeletal: other (Right lower extremity in cast) Extremities: normal pulses, other (No edema, clubbing or cyanosis) Neurological: TAP PULLER II-XII intact, confused (Likely with underlying dementia), other (Very limited ambulation due to right lower extremity tibial fracture, cast in place) Results Result Diagram: 07/07/1752 07/07/17 0652 Results 24 hrs Laboratory Tests Test 07/06/17 17:38 07/06/17 20:32 07/07/17 06:52 07/07/17 08:19 Bedside Glucose 125 101 96 White Blood Count 4.0 L Red Blood Count 3.63 L Hemoglobin 11.6 L Hematocrit 38.2 Mean Corpuscular Volume 105.2 H Mean Corpuscular Hemoglobin 32.0 Mean Corpuscular Hemoglobin Concent 30.4 L Red Cell Distribution Width 14.6 H Platelet Count 112 #L Mean Platelet Volume 12.1 H Neutrophils % 58.9 Lymphocytes % 25.0 Monocytes % 10.9 Eosinophils % 4.0 Basophils % 1.0 Nucleated Red Blood Cells % 0.0 Neutrophils # 2.4 Lymphocytes # 1.0 Monocytes # 0.4 Eosinophils # 0.2 Basophils # 0.0 Nucleated Red Blood Cells # 0.0 Sodium Level 138 Potassium Level 4.4 Chloride Level 104 Carbon Dioxide Level 29 Anion Gap 9 Blood Urea Nitrogen 21 H Creatinine 2.58 H Glucose Level 76 Calcium Level 9.4 Phosphorus Level 5.5 H Albumin 2.6 L Medications Medications Current Medications Aspirin (Halfprin) 81 mg DAILY PO Last administered on 07/07/17 08:21; Admin Dose 81 MG; Start 06/29/17 at 09:00 Atorvastatin Calcium (Lipitor) 40 mg QHS PO Last administered on 07/06/17 20: 40; Admin Dose 40 MG; Start 06/28/17 at 21:00 Phenol (Cepastat Lozenge) 1 lozenge Q4 PRN PO COUGH; Start 06/28/17 at 20:00 Carvedilol (Coreg) 12.5 mg BID PO Last administered on 07/07/17 08:21; Admin Dose 12.5 MG; Start 06/28/17 at 21:00 Clonidine HCl (Catapres-Tts 3 Patch) 1 patch Q7D TRANSDERM Last administered on 07/05/17 20:26; Admin Dose 1 PATCH; Start 06/28/17 at 20:00 Folic Acid (Folic Acid) 1 mg DAILY PO Last administered on 07/07/17 08:20; Admin Dose 1 MG; Start 06/29/17 at 09:00 Hydralazine HCl (Apresoline) 100 mg TID PO Last administered on 07/07/17 12:08 ; Admin Dose 100 MG; Start 06/28/17 at 21:00 Hydroxyzine HCl (Atarax) 25 mg Q6H PRN PO ITCHING; Start 06/28/17 at 20:00 Multivit/Ca Carb/ B Cmplx/FA/Prenat (Sofy-Cooper) 1 tab DAILY PO Last administered on 07/07/17 08:21; Admin Dose 1 TAB; Start 06/28/17 at 20:00 Senna (Senokot) 1 tab DAILY PO Last administered on 07/07/17 08:20; Admin Dose 1 TAB; Start 06/29/17 at 09:00 Ondansetron HCl (Zofran Inj) 4 mg Q6H PRN IV NAUSEA AND/OR VOMITING Last administered on 06/29/17 16:30; Admin Dose 4 MG; Start 06/28/17 at 20:00 Nitroglycerin (Nitroglycerin (Sl Tab) 0.4 Mg) 1 tab Q5M PRN SL CHEST PAIN; Start 06/28/17 at 20:00 Acetaminophen (Tylenol Tab) 650 mg Q6H PRN PO PAIN LEVEL 1-3 OR FEVER Last administered on 07/02/17 13:00; Admin Dose 650 MG; Start 06/28/17 at 20:00 Acetaminophen/ Hydrocodone Bitart ([place] (5/325)) 1 tab Q6H PRN PO PAIN LEVEL 4 -6 Last administered on 07/04/17 11:36; Admin Dose 1 TAB; Start 06/28/17 at 20: 00 Morphine Sulfate (morphine) 2 mg Q4H PRN IV PAIN LEVEL 7-10 Last administered on 06/29/17 16:29; Admin Dose 2 MG; Start 06/28/17 at 20:00 Docusate Sodium (Colace) 100 mg Q12H PRN PO CONSTIPATION; Start 06/28/17 at 20: 00 Magnesium Hydroxide (Milk Of Mag) 30 ml DAILY PRN PO CONSTIPATION; Start at 20:00 Bisacodyl (Dulcolax Supp) [address] CONSTIPATION; Start 06/28/17 at 20 :00 Famotidine 10 mg 10 mg Q48H PO Last administered on 07/06/17 20:41; Admin Dose 10 MG; Start 06/28/17 at 21:00 Sodium Chloride (NS) 1,000 ml @ 0 mls/hr Q0M PRN IV TO KEEP SBP ABOVE 90; Start 06/28/17 at 20:01 Heparin Sodium (Porcine) (Heparin (5000 Units/0.5 ml)) 5,000 unit BID SC Last administered on 07/07/17 08:32; Admin Dose 5,000 UNIT; Start 06/29/17 at 12:00 Mupirocin 1 applic 1 applic BID TOP Last administered on 07/07/17 08:22; Admin Dose 1 APPLIC; Start 06/30/17 at 12:00 Piperacillin Sod/ Tazobactam Sod (Zosyn 2.25gm/ 50ml (Pmx)) 50 ml @ 100 mls/hr Q8 IVPB Last administered on 07/07/17 05:05; Admin Dose 100 MLS/HR; Start at 14:00 Hydralazine HCl (Apresoline) 20 mg Q6H PRN IV ELEVATED BLOOD PRESSURE Last administered on 07/06/17 23:48; Admin Dose 20 MG; Start 07/04/17 at 07:00 Docusate Sodium (Colace Liquid Cup) 100 mg BID PO Last administered on 08:20; Admin Dose 100 MG; Start 07/06/17 at 09:00 Amiodarone HCl (Cordarone) 200 mg DAILY PO Last administered on 07/07/17 08:20 ; Admin Dose 200 MG; Start 07/07/17 at 09:00 Lisinopril (Zestril) 10 mg BID PO Last administered on 07/07/17 08:21; Admin Dose 10 MG; Start 07/06/17 at 21:00 Amlodipine Besylate (Norvasc) 5 mg BID PO Last administered on 07/07/17 08:21 ; Admin Dose 5 MG; Start 07/06/17 at 10:30 KEON LOVE Jul 07, 2017 13:28
--- NOTE | 2017-07-07 16:14 | CONS ---
Date/Time of Note Date/Time of Note DATE: 07/07/17 TIME: 16:11 Assessment/Plan Assessment/Plan Chief Complaint/Hosp Course 86 y/o with 1. Encephalopathy likely metabolic 2. Malignant HTN 3. Positive troponin in setting of ESRD 4 Malnutrition. 6. Hypoalbuminemia. 7. Protein-calorie malnutrition with CT A+P with infectious/ischemia/ inflammatory colitis 8. End-stage renal disease ON HD M/W//F 9. Right tibial fracture, has a cast on. 10. Hypertension. 11. Enterococcus bacterimia on zosyn Recs - HD tommorow - on Coreg 12.5 bid , Hydralzine 100 tid, Nifedipine 60 mg> norvasc , Clonidine patch .Lisnopril was increased to 10 bid - on zosyn - Pain control - GI/DVT prophylaxsis Problems: Consultation Date/Type/Reason Admit Date/Time Jun 28, 2017 at 17:52 Type of Consultation: Renal 24 HR Interval Summary Free Text/Dictation Bp much controlled now s/p HD yesterday Exam/Review of Systems Vital Signs Vitals Vital Signs Date Time Temp Pulse Resp B/P Pulse Ox O2 Delivery O2 Flow Rate FiO2 07/07/17 15:16 98.2 78 16 141/78 99 07/07/17 08:00 Nasal Cannula 2.0 Intake and Output 07/06/17 07/06/17 07/07/17 14:59 22:59 06:59 Intake Total 660 ml 330 ml Output Total 2400 ml Balance -1740 ml 330 ml Exam Gen:Awake, alert Neck:supple Lungs:clear CVS:Regular rate and rthym Abdomen:soft, non tender ext: in cast Access: rt permacath, left AV graft clotted Results Result Diagram: 07/07/17 0652 07/07/17 0652 Results 24 hrs Laboratory Tests Test 07/06/17 17:38 07/06/17 20:32 07/07/17 06:52 07/07/17 08:19 Bedside Glucose 125 101 96 White Blood Count 4.0 L Red Blood Count 3.63 L Hemoglobin 11.6 L Hematocrit 38.2 Mean Corpuscular Volume 105.2 H Mean Corpuscular Hemoglobin 32.0 Mean Corpuscular Hemoglobin Concent 30.4 L Red Cell Distribution Width 14.6 H Platelet Count 112 #L Mean Platelet Volume 12.1 H Neutrophils % 58.9 Lymphocytes % 25.0 Monocytes % 10.9 Eosinophils % 4.0 Basophils % 1.0 Nucleated Red Blood Cells % 0.0 Neutrophils # 2.4 Lymphocytes # 1.0 Monocytes # 0.4 Eosinophils # 0.2 Basophils # 0.0 Nucleated Red Blood Cells # 0.0 Sodium Level 138 Potassium Level 4.4 Chloride Level 104 Carbon Dioxide Level 29 Anion Gap 9 Blood Urea Nitrogen 21 H Creatinine 2.58 H Glucose Level 76 Calcium Level 9.4 Phosphorus Level 5.5 H Albumin 2.6 L Medications Medications Current Medications Aspirin (Halfprin) 81 mg DAILY PO Last administered on 07/07/17 08:21; Admin Dose 81 MG; Start 06/29/17 at 09:00 Atorvastatin Calcium (Lipitor) 40 mg QHS PO Last administered on 07/06/17 20: 40; Admin Dose 40 MG; Start 06/28/17 at 21:00 Phenol (Cepastat Lozenge) 1 lozenge Q4 PRN PO COUGH; Start 06/28/17 at 20:00 Carvedilol (Coreg) 12.5 mg BID PO Last administered on 07/07/17 08:21; Admin Dose 12.5 MG; Start 06/28/17 at 21:00 Clonidine HCl (Catapres-Tts 3 Patch) 1 patch Q7D TRANSDERM Last administered on 07/05/17 20:26; Admin Dose 1 PATCH; Start 06/28/17 at 20:00 Folic Acid (Folic Acid) 1 mg DAILY PO Last administered on 07/07/17 08:20; Admin Dose 1 MG; Start 06/29/17 at 09:00 Hydralazine HCl (Apresoline) 100 mg TID PO Last administered on 07/07/17 12:08 ; Admin Dose 100 MG; Start 06/28/17 at 21:00 Hydroxyzine HCl (Atarax) 25 mg Q6H PRN PO ITCHING; Start 06/28/17 at 20:00 Multivit/Ca Carb/ B Cmplx/FA/Prenat ([place]) 1 tab DAILY PO Last administered on 07/07/17 08:21; Admin Dose 1 TAB; Start 06/28/17 at 20:00 Senna (Senokot) 1 tab DAILY PO Last administered on 07/07/17 08:20; Admin Dose 1 TAB; Start 06/29/17 at 09:00 Ondansetron HCl (Zofran Inj) 4 mg Q6H PRN IV NAUSEA AND/OR VOMITING Last administered on 06/29/17 16:30; Admin Dose 4 MG; Start 06/28/17 at 20:00 Nitroglycerin (Nitroglycerin (Sl Tab) 0.4 Mg) 1 tab Q5M PRN SL CHEST PAIN; Start 06/28/17 at 20:00 Acetaminophen (Tylenol Tab) 650 mg Q6H PRN PO PAIN LEVEL 1-3 OR FEVER Last administered on 07/02/17 13:00; Admin Dose 650 MG; Start 06/28/17 at 20:00 Acetaminophen/ Hydrocodone Bitart ([place] (5/325)) 1 tab Q6H PRN PO PAIN LEVEL 4 -6 Last administered on 07/04/17 11:36; Admin Dose 1 TAB; Start 06/28/17 at 20: 00 Morphine Sulfate (morphine) 2 mg Q4H PRN IV PAIN LEVEL 7-10 Last administered on 06/29/17 16:29; Admin Dose 2 MG; Start 06/28/17 at 20:00 Docusate Sodium (Colace) 100 mg Q12H PRN PO CONSTIPATION; Start 06/28/17 at 20: 00 Magnesium Hydroxide (Milk Of Mag) 30 ml DAILY PRN PO CONSTIPATION; Start at 20:00 Bisacodyl (Dulcolax Supp) 10 mg DAILY PRN [place] CONSTIPATION; Start 06/28/17 at 20 :00 Famotidine 10 mg 10 mg Q48H PO Last administered on 07/06/17 20:41; Admin Dose 10 MG; Start 06/28/17 at 21:00 Sodium Chloride (NS) 1,000 ml @ 0 mls/hr Q0M PRN IV TO KEEP SBP ABOVE 90; Start 06/28/17 at 20:01 Heparin Sodium (Porcine) (Heparin (5000 Units/0.5 ml)) 5,000 unit BID SC Last administered on 07/07/17 08:32; Admin Dose 5,000 UNIT; Start 06/29/17 at 12:00 Mupirocin 1 applic 1 applic BID TOP Last administered on 07/07/17 08:22; Admin Dose 1 APPLIC; Start 06/30/17 at 12:00 Piperacillin Sod/ Tazobactam Sod (Zosyn 2.25gm/ 50ml (Pmx)) 50 ml @ 100 mls/hr Q8 IVPB Last administered on 07/07/17 13:42; Admin Dose 100 MLS/HR; Start at 14:00 Hydralazine HCl (Apresoline) 20 mg Q6H PRN IV ELEVATED BLOOD PRESSURE Last administered on 07/06/17 23:48; Admin Dose 20 MG; Start 07/04/17 at 07:00 Docusate Sodium (Colace Liquid Cup) 100 mg BID PO Last administered on 08:20; Admin Dose 100 MG; Start 07/06/17 at 09:00 Amiodarone HCl (Cordarone) 200 mg DAILY PO Last administered on 07/07/17 08:20 ; Admin Dose 200 MG; Start 07/07/17 at 09:00 Lisinopril (Zestril) 10 mg BID PO Last administered on 07/07/17 08:21; Admin Dose 10 MG; Start 07/06/17 at 21:00 Amlodipine Besylate (Norvasc) 5 mg BID PO Last administered on 07/07/17 08:21 ; Admin Dose 5 MG; Start 07/06/17 at 10:30 ISRAEL MURILLO MD Jul 07, 2017 16:14
== END 2017-07-07 21:23 | DRG 70 ==
LOC: E/R 12:52 → TEL 17:52
PROVIDERS: ADMIT Internal Medicine; ATTEND Internal Medicine
PROC: 5A1D60Z (ICD-10-PCS; principal; 2017-06-28)
DX: G93.41 Metabolic encephalopathy (principal); E43 Unspecified severe protein-calorie malnutrition; I50.33 Acute on chronic diastolic (congestive) heart failure; E87.2 Acidosis; N18.6 End stage renal disease; I48.0 Paroxysmal atrial fibrillation; E87.5 Hyperkalemia; I16.1 Hypertensive emergency; Z68.1 Body mass index [BMI] 19.9 or less, adult; A09 Infectious gastroenteritis and colitis, unspecified; I13.2 Hypertensive heart and chronic kidney disease with heart failure and with stage 5 chronic kidney disease, or end stage renal disease; D64.9 Anemia, unspecified; Z99.2 Dependence on renal dialysis; Z91.15 Patient's noncompliance with renal dialysis; Z91.14 Patient's other noncompliance with medication regimen; Z66 Do not resuscitate
CPT/HCPCS: 36415; 70450; 70551; 71010; 74176; 80048; 80053; 80061; 80069; 80202; 82140; 82378; 82550; 82553; 82962; 83605; 83735; 84100; 84134; 84439; 84443; 84484; 85025; 85610; 85730; 87040; 87081; 90935; 92526; 92610; 93005; 93306; 96374; 96375; 97110; 97163; 97530; J0360; J1644; J1815; J2270; J2405; J2543; J3370; J7030; J7040; J7042; P9612